=== PATIENT | female | born 1955 | race Caucasian/White ===

== ENCOUNTER → 2017-01-05 | Outpatient (CLI) | payer BC ==
--- NOTE | 2017-01-05 08:51 | US ---
EXAMINATION TYPE: US kidneys/renal and bladder DATE OF EXAM: 01/05/2017 8:03 AM COMPARISON: NONE CLINICAL HISTORY: R94.4 ABN Renal Function Test. EXAM MEASUREMENTS: Right Kidney: 11.1 x 4.1 x 5.5 cm Left Kidney: 7.0 x 2.5 x 3.6 cm TECHNOLOGIST IMPRESSION: Right Kidney: mildly dilated collecting system Left Kidney: atrophic, thin renal cortex, dense echogenic area mid = 0.5cm Bladder: appears wnl Bilateral Jets seen: no IMPRESSION: 1. Left renal atrophy. 2. 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
== END | disposition home or self-care (01) ==
LOC: RADUSWWP 07:35
PROVIDERS: ATTEND Family Medicine
DX: N26.1 Atrophy of kidney (terminal) (principal); N28.89 Other specified disorders of kidney and ureter
CPT/HCPCS: 76770

== ENCOUNTER → 2018-12-28 | Outpatient (CLI) | payer BC ==
--- NOTE | 2018-12-28 13:34 | ECHOS ---
STRESS ECHOCARDIOGRAM DATE OF SERVICE: 12/28/2018 INDICATIONS: Chest pain. MEDICATIONS: BASELINE HEART RATE: 65 BASELINE BLOOD PRESSURE: 143/93 MAXIMUM HEART RATE: 143 MAXIMUM BLOOD PRESSURE: 118/62 85% MPHR: 135 100% MPHR: 159 METS: 10.3 MAXIMUM STAGE REACHED: II TOTAL EXERCISE TIME: 9 minutes CLINICAL INFORMATION: The patient was exercised for a total period of 9 minutes. Peak heart rate of 143 was achieved. Maximum blood pressure of 118/62 mmHg was noted. Resting EKG shows normal sinus rhythm with normal LA interval and QRS duration and normal ST-T waves. No ST- segment depression suggestive of ischemia is noted. The baseline echocardiographic images reveal normal left ventricular chamber size with normal left ventricular systolic function. In the immediate postexercise period, normal increase in the wall thickness and contractility is noted. FINAL IMPRESSION: This stress echocardiographic study is negative for stress-induced ischemia. EKG portion of the stress test is not suggestive of ischemia. Patient's exercise tolerance is normal. MMODL / IJN: [id number] /
== END ==
LOC: RADNMMAIN 08:58
PROVIDERS: ATTEND Family Medicine
DX: R07.89 Other chest pain (principal)
CPT/HCPCS: 93351

== ENCOUNTER 2019-01-09 13:46 | Inpatient (IN) | payer BC ==
[2019-01-09] MEDS ORDERED: ACETAMINOPHEN TAB 500 MG TAB PO STA (15:16)
[2019-01-09] MEDS ORDERED: SODIUM CHLORIDE 0.9% 1,000 ML IV STA (15:16)
--- NOTE | 2019-01-09 15:19 | ED ---
Fever HPI - General Source: patient, RN notes reviewed Mode of arrival: ambulatory Limitations: no limitations <Jeff Leyva - Last Filed: 01/09/19 15:17> <Abiel Brooks - Last Filed: 01/09/19 19:28> - General Chief Complaint: Fever Stated Complaint: infection Time Seen by Provider: 01/09/19 14:57 - History of Present Illness Initial Comments: 63-year-old female presents emergency Department with chief complaint of fever. Patient states she has not fell last few days. Patient states that she went to doctors for surgical clearance states that she had meals while been was diagnosed with a staph infection placed on Bactrim. She states that ever since that she's not felt well. She has no URI symptoms denies any abdominal pain, chest pain, cough, dysuria, hematuria, back pain, neck pain or neck stiffness. She has not taken any recent Tylenol. Patient denies any sick contacts. (Jeff Leyva) - Related Data Home Medications Medication Instructions Recorded Confirmed Levothyroxine Sodium [Synthroid] 50 mcg PO DAILY 07/31/16 01/09/19 Sulfamethoxazole/Trimethoprim 1 tab PO BID 01/09/19 01/09/19 [Bactrim DS 800-160 mg] Allergies Allergy/AdvReac Type Severity Reaction Status Date / Time No Known Allergies Allergy Verified 01/09/19 15:12 Review of Systems ROS Other: All systems not noted in ROS Statement are negative. <Jeff Leyva - Last Filed: 01/09/19 15:17> ROS Other: All systems not noted in ROS Statement are negative. <Abiel Brooks - Last Filed: 01/09/19 19:28> ROS Statement: Those systems with pertinent positive or pertinent negative responses have been documented in the HPI. Past Medical History Past Medical History: Osteoarthritis (OA), Sleep Apnea/CPAP/BIPAP, Thyroid Disorder History of Any Multi-Drug Resistant Organisms: None Reported Past Surgical History: Section Past Anesthesia/Blood Transfusion Reactions: No Reported Reaction Past Psychological History: No Psychological Hx Reported Smoking Status: Former smoker - Past Family History Sister(s) Family Medical History: Cancer Father Family Medical History: Pulmonary Embolus Brother(s) Family Medical History: Pulmonary Embolus Mother Family Medical History: Deep Vein Thrombosis (DVT) <Dedoe,Jeff M - Last Filed: 01/09/19 15:17> General Exam Limitations: no limitations General appearance: alert, in no apparent distress Head exam: Present: atraumatic, normocephalic, normal inspection Eye exam: Present: normal appearance, PERRL, EOMI. Absent: scleral icterus, conjunctival injection, periorbital swelling ENT exam: Present: normal exam, normal oropharynx, mucous membranes moist, TM's normal bilaterally Neck exam: Present: normal inspection, full ROM. Absent: tenderness, meningismus, lymphadenopathy Respiratory exam: Present: normal lung sounds bilaterally. Absent: respiratory distress, wheezes, rales, rhonchi, stridor Cardiovascular Exam: Present: regular rate, normal rhythm, normal heart sounds. Absent: systolic murmur, diastolic murmur, rubs, gallop, clicks GI/Abdominal exam: Present: soft, normal bowel sounds. Absent: distended, tenderness, guarding, rebound, rigid Extremities exam: Present: normal inspection, full ROM, normal capillary refill. Absent: tenderness, pedal edema, joint swelling, calf tenderness Back exam: Present: normal inspection, full ROM. Absent: CVA tenderness (R), CVA tenderness (L) Neurological exam: Present: alert, oriented X3, CN II-XII intact Psychiatric exam: Present: normal affect, normal mood Skin exam: Present: warm, dry, intact, normal color. Absent: rash <Jeff Leyva - Last Filed: 01/09/19 15:17> Course <Jeff Leyva - Last Filed: 01/09/19 15:17> <Abiel Brooks - Last Filed: 01/09/19 19:28> Vital Signs 01/09/19 01/09/19 01/09/19 13:48 16:00 16:30 Temperature 102.4 F H Pulse Rate 96 91 Respiratory 16 20 Rate Blood Pressure 91/55 97/63 94/79 O2 Sat by Pulse 97 96 Oximetry 01/09/19 01/09/19 01/09/19 17:00 17:08 17:09 Temperature Pulse Rate Respiratory Rate Blood Pressure 79/49 70/51 79/43 O2 Sat by Pulse Oximetry 01/09/19 01/09/19 01/09/19 17:19 17:24 17:30 Temperature 100.8 F H Pulse Rate 85 Respiratory 14 Rate Blood Pressure 80/54 80/44 O2 Sat by Pulse 97 Oximetry 01/09/19 01/09/19 01/09/19 17:45 18:00 18:15 Temperature Pulse Rate 82 82 83 Respiratory 14 14 14 Rate Blood Pressure 91/43 79/47 72/43 O2 Sat by Pulse 99 99 98 Oximetry 01/09/19 01/09/19 01/09/19 18:30 18:45 19:00 Temperature Pulse Rate 81 81 Respiratory 16 14 Rate Blood Pressure 75/43 77/42 81/46 O2 Sat by Pulse 96 99 100 Oximetry 01/09/19 19:15 Temperature Pulse Rate 73 Respiratory 16 Rate Blood Pressure 85/56 O2 Sat by Pulse 100 Oximetry - Reevaluation(s) Reevaluation #1: 01/09/19 17:46 Patient reevaluated by myself, Dr. Brooks. Patient resting comfortably in bed. Patient states she has been fatigued the past few days and does feel a little bit dry in the mouth. Patient states no fevers at home. Patient otherwise does not feel that bad. No abdominal pain. No chest pain or dyspnea or cough. No dysuria. No rash. No meningismus on exam. Patient reevaluated and reexamined. Ultrasound ordered to evaluate for mild elevation of liver enzymes. At this time there is concern for severe sepsis although source is not identified. 1746. Blood culture and lactic acid have been ordered. Fluid bolus has been ordered. IV antibiotics has been ordered. Blood pressure did go down to 76 systolic. Current blood pressure is 91 systolic. (Abiel Brooks) Procedures - Central Line Placement Right SC Consent Obtained: verbal consent Patient Placed on Monitor/Pulse Ox: Yes MD Prep: mask, gown Central Line Prep: Chlorhexidine scrub Local Anesthesia Used: Lidocaine 1% Complications: none, other (Unable to fully advance the catheter. Procedure was discontinued and catheter was removed.) Right Femoral Consent Obtained: verbal consent Patient Placed on Monitor/Pulse Ox: Yes MD Prep: mask, gown, gloves Central Line Prep: Chlorhexidine scrub Local Anesthesia Used: Lidocaine 1% Ultrasound Used for Placement: No Central Line Lumen Inserted: triple Central Line Position: good blood return, all ports aspirated, flushed, capped, sutured in place with 3-0 nylon Dressing Applied: Tegaderm Patient Tolerated Procedure: well Complications: none - Sepsis Sepsis Focused Exam #1 Time Sepsis Criteria Met: 17:46 Sepsis Focused Exam Date: 01/09/19 Sepsis Focused Exam Time: 17:48 Sepsis Focused Exam Complete: Yes Vital Signs & RN Notes Reviewed: Yes Capillary Refill: < 2 Seconds: Fingers, Toes Peripheral Pulses: Normal: Radial (R), Radial (L) Skin Color: Normal for Patient Respiratory Exam: normal lung sounds Cardiovascular Exam: regular rate, normal rhythm Sepsis Focused Exam #2 Sepsis Focused Exam Date: 01/09/19 Sepsis Focused Exam Time: 19:20 Sepsis Focused Exam Complete: Yes Vital Signs & RN Notes Reviewed: Yes Capillary Refill: < 2 Seconds: Fingers, Toes Peripheral Pulses: Normal: Radial (R), Radial (L) Skin Color: Normal for Patient Respiratory Exam: normal lung sounds Cardiovascular Exam: regular rate, normal rhythm <Abiel Brooks - Last Filed: 01/09/19 19:28> Medical Decision Making <Jeff Leyva - Last Filed: 01/09/19 15:17> - Lab Data Result diagrams: 01/09/19 15:50 01/09/19 15:50 - Radiology Data Radiology results: report reviewed (Ultrasound shows no acute abnormality.), image reviewed (Chest x-ray shows no acute process.) <Abiel Brooks - Last Filed: 01/09/19 19:28> - Medical Decision Making Patient reevaluated. Patient and family are updated on results and plan. Source of fevers unknown at this time. Case was discussed in detail with Dr. Campos, who will consult for critical care. He does agree with infectious disease consult. He recommends changing antibiotics to Levaquin and vancomycin. Case was also discussed with Dr. crisostomo, who will admit, covering for Dr. Cottrell, who admits for Dr. Holly. (Abiel Brooks) - Lab Data Lab Results 01/09/19 01/09/19 01/09/19 Range/Units 15:50 15:50 15:50 WBC 5.3 (3.8-10.6) k/uL RBC 4.99 (3.80-5.40) m/uL Hgb 12.8 (11.4-16.0) gm/dL Hct 39.8 (34.0-46.0) % MCV 79.8 L (80.0-100.0) fL MCH 25.7 (25.0-35.0) pg MCHC 32.2 (31.0-37.0) g/dL RDW 14.5 (11.5-15.5) % Plt Count 294 (150-450) k/uL Neutrophils % 90 % Lymphocytes % 5 % Monocytes % 2 % Eosinophils % 1 % Basophils % 1 % Neutrophils # 4.8 (1.3-7.7) k/uL Lymphocytes # 0.3 L (1.0-4.8) k/uL Monocytes # 0.1 (0-1.0) k/uL Eosinophils # 0.1 (0-0.7) k/uL Basophils # 0.0 (0-0.2) k/uL Sodium 135 L (137-145) mmol/L Potassium 4.6 (3.5-5.1) mmol/L Chloride 102 (98-107) mmol/L Carbon Dioxide 19 L (22-30) mmol/L Anion Gap 14 mmol/L BUN 15 (7-17) mg/dL Creatinine 1.43 H (0.52-1.04) mg/dL Est GFR (CKD-EPI)AfAm 46 (>60 ml/min/1.73 sqM) Est GFR (CKD-EPI)NonAf 40 (>60 ml/min/1.73 sqM) Glucose 120 H (74-99) mg/dL Plasma Lactic Acid Edgar 1.4 (0.7-2.0) mmol/L Calcium 8.8 (8.4-10.2) mg/dL Magnesium (1.6-2.3) mg/dL Total Bilirubin 0.5 (0.2-1.3) mg/dL AST 57 H (14-36) U/L ALT 71 H (9-52) U/L Alkaline Phosphatase 202 H (38-126) U/L Total Creatine Kinase (30-135) U/L CK-MB (CK-2) (0.0-2.4) ng/mL CK-MB (CK-2) Rel Index Troponin I (0.000-0.034) ng/mL Total Protein 7.2 (6.3-8.2) g/dL Albumin 3.9 (3.5-5.0) g/dL Urine Color Urine Appearance (Clear) Urine pH (5.0-8.0) Ur Specific [place] (1.001-1.035) Urine Protein (Negative) Urine Glucose (UA) (Negative) Urine Ketones (Negative) Urine Blood (Negative) Urine Nitrite (Negative) Urine Bilirubin (Negative) Urine Urobilinogen (<2.0) mg/dL Ur Leukocyte Esterase (Negative) Urine RBC (0-5) /hpf Urine WBC (0-5) /hpf Ur Squamous Epith Cells (0-4) /hpf Urine Bacteria (None) /hpf Hyaline Casts (0-2) /lpf Urine Mucus (None) /hpf Hepatitis A IgM Ab Influenza Type A RNA (Not Detectd) Influenza Type B (PCR) (Not Detectd) 01/09/19 01/09/19 01/09/19 Range/Units 15:50 15:50 15:50 WBC (3.8-10.6) k/uL RBC (3.80-5.40) m/uL Hgb (11.4-16.0) gm/dL Hct (34.0-46.0) % MCV (80.0-100.0) fL MCH (25.0-35.0) pg MCHC (31.0-37.0) g/dL RDW (11.5-15.5) % Plt Count (150-450) k/uL Neutrophils % % Lymphocytes % % Monocytes % % Eosinophils % % Basophils % % Neutrophils # (1.3-7.7) k/uL Lymphocytes # (1.0-4.8) k/uL Monocytes # (0-1.0) k/uL Eosinophils # (0-0.7) k/uL Basophils # (0-0.2) k/uL Sodium (137-145) mmol/L Potassium (3.5-5.1) mmol/L Chloride (98-107) mmol/L Carbon Dioxide (22-30) mmol/L Anion Gap mmol/L BUN (7-17) mg/dL Creatinine (0.52-1.04) mg/dL Est GFR (CKD-EPI)AfAm (>60 ml/min/1.73 sqM) Est GFR (CKD-EPI)NonAf (>60 ml/min/1.73 sqM) Glucose (74-99) mg/dL Plasma Lactic Acid Edgar (0.7-2.0) mmol/L Calcium (8.4-10.2) mg/dL Magnesium 2.1 (1.6-2.3) mg/dL Total Bilirubin (0.2-1.3) mg/dL AST (14-36) U/L ALT (9-52) U/L Alkaline Phosphatase (38-126) U/L Total Creatine Kinase 94 (30-135) U/L CK-MB (CK-2) <0.2 (0.0-2.4) ng/mL CK-MB (CK-2) Rel Index Troponin I <0.012 (0.000-0.034) ng/mL Total Protein (6.3-8.2) g/dL Albumin (3.5-5.0) g/dL Urine Color Urine Appearance (Clear) Urine pH (5.0-8.0) Ur Specific [place] (1.001-1.035) Urine Protein (Negative) Urine Glucose (UA) (Negative) Urine Ketones (Negative) Urine Blood (Negative) Urine Nitrite (Negative) Urine Bilirubin (Negative) Urine Urobilinogen (<2.0) mg/dL Ur Leukocyte Esterase (Negative) Urine RBC (0-5) /hpf Urine WBC (0-5) /hpf Ur Squamous Epith Cells (0-4) /hpf Urine Bacteria (None) /hpf Hyaline Casts (0-2) /lpf Urine Mucus (None) /hpf Hepatitis A IgM Ab Influenza Type A RNA Not Detected (Not Detectd) Influenza Type B (PCR) Not Detected (Not Detectd) 01/09/19 01/09/19 Range/Units 16:20 18:33 WBC (3.8-10.6) k/uL RBC (3.80-5.40) m/uL Hgb (11.4-16.0) gm/dL Hct (34.0-46.0) % MCV (80.0-100.0) fL MCH (25.0-35.0) pg MCHC (31.0-37.0) g/dL RDW (11.5-15.5) % Plt Count (150-450) k/uL Neutrophils % % Lymphocytes % % Monocytes % % Eosinophils % % Basophils % % Neutrophils # (1.3-7.7) k/uL Lymphocytes # (1.0-4.8) k/uL Monocytes # (0-1.0) k/uL Eosinophils # (0-0.7) k/uL Basophils # (0-0.2) k/uL Sodium (137-145) mmol/L Potassium (3.5-5.1) mmol/L Chloride (98-107) mmol/L Carbon Dioxide (22-30) mmol/L Anion Gap mmol/L BUN (7-17) mg/dL Creatinine (0.52-1.04) mg/dL Est GFR (CKD-EPI)AfAm (>60 ml/min/1.73 sqM) Est GFR (CKD-EPI)NonAf (>60 ml/min/1.73 sqM) Glucose (74-99) mg/dL Plasma Lactic Acid Edgar (0.7-2.0) mmol/L Calcium (8.4-10.2) mg/dL Magnesium (1.6-2.3) mg/dL Total Bilirubin (0.2-1.3) mg/dL AST (14-36) U/L ALT (9-52) U/L Alkaline Phosphatase (38-126) U/L Total Creatine Kinase (30-135) U/L CK-MB (CK-2) (0.0-2.4) ng/mL CK-MB (CK-2) Rel Index Troponin I (0.000-0.034) ng/mL Total Protein (6.3-8.2) g/dL Albumin (3.5-5.0) g/dL Urine Color Yellow Urine Appearance Cloudy H (Clear) Urine pH 6.5 (5.0-8.0) Ur Specific [place] 1.015 (1.001-1.035) Urine Protein 1+ H (Negative) Urine Glucose (UA) Negative (Negative) Urine Ketones Negative (Negative) Urine Blood Negative (Negative) Urine Nitrite Negative (Negative) Urine Bilirubin Negative (Negative) Urine Urobilinogen <2.0 (<2.0) mg/dL Ur Leukocyte Esterase Small H (Negative) Urine RBC 3 (0-5) /hpf Urine WBC 6 H (0-5) /hpf Ur Squamous Epith Cells 7 H (0-4) /hpf Urine Bacteria Rare H (None) /hpf Hyaline Casts 5 H (0-2) /lpf Urine Mucus Rare H (None) /hpf Hepatitis A IgM Ab NEGATIVE Influenza Type A RNA (Not Detectd) Influenza Type B (PCR) (Not Detectd) Critical Care Time Critical Care Time: Yes Total Critical Care Time: 33 <Abiel Brooks - Last Filed: 01/09/19 19:28> Disposition <Jeff Leyva - Last Filed: 01/09/19 15:17> Is patient prescribed a controlled substance at d/c from ED?: No Decision Time: 19:28 <Abiel rBooks - Last Filed: 01/09/19 19:28> Clinical Impression: Septic shock Disposition: ADMITTED IP TO THIS HOSP Condition: Serious Referrals: Luis Alberto Holly MD [Primary Care Provider] - 1-2 days
--- NOTE | 2019-01-09 15:37 | XR ---
EXAMINATION TYPE: XR chest 2V DATE OF EXAM: 01/09/2019 COMPARISON: NONE HISTORY: Fever TECHNIQUE: Frontal and lateral views of the chest are obtained. FINDINGS: Heart and mediastinum are normal. Lungs are clear. Diaphragm is normal. Bony thorax appear s normal. Pulmonary vascularity is normal. IMPRESSION: Normal chest
[2019-01-09 16:10] LABS: Basophils % (A) 1 %; Eosinophils # (A) 0.1 k/uL (0-0.7); Eosinophils % (A) 1 %; HCT 39.8 % (34.0-46.0); HGB 12.8 gm/dL (11.4-16.0); Lymphocytes # (A) 0.3 k/uL (1.0-4.8); Lymphocytes % (A) 5 %; MCH 25.7 pg (25.0-35.0); MCHC 32.2 g/dL (31.0-37.0); MCV 79.8 fL (80.0-100.0); Mean Platelet Volume 7.1; Monocytes # (A) 0.1 k/uL (0-1.0); Monocytes % (A) 2 %; Neutrophils # (A) 4.8 k/uL (1.3-7.7); Neutrophils % (A) 90 %; Platelet Count 294 k/uL (150-450); RBC 4.99 m/uL (3.80-5.40); RDW 14.5 % (11.5-15.5); WBC 5.3 k/uL (3.8-10.6)
[2019-01-09 16:20] LABS: Albumin 3.9 g/dL (3.5-5.0); Calcium 8.8 mg/dL (8.4-10.2); Potassium 4.6 mmol/L (3.5-5.1); Total Bilirubin 0.5 mg/dL (0.2-1.3); Total Protein 7.2 g/dL (6.3-8.2)
[2019-01-09 16:42] LABS: Appearance,Urine Cloudy (Clear); Bacteria,Urine Rare /hpf; Bilirubin,Urine Negative (Negative); Blood,Urine Negative (Negative); Color,Urine Yellow; Glucose,Urine (UA) Negative (Negative); Hyaline Casts,Urine 5 /lpf (0-2); Ketones,Urine Negative (Negative); Leukocyte Esterase,Urine Small (Negative); Mucus,Urine Rare /hpf; Nitrite,Urine Negative (Negative); PH, Urine 6.5 (5.0-8.0); Protein,Urine 1+ (Negative); RBC,Urine 3 /hpf (0-5); Specific Gravity,Urine 1.015 (1.001-1.035); Squamous Epithelial Cell,Urine 7 /hpf (0-4); Urobilinogen,Urine <2.0 mg/dL (<2.0)
[2019-01-09] MEDS ORDERED: SODIUM CHLORIDE 0.9% 1,000 ML IV ONE (17:07)
[2019-01-09] MEDS ORDERED: SODIUM CHLORIDE 0.9% 500 ML 500 ML IV ONE (17:12)
[2019-01-09 17:40] LABS: Creatine Kinase 94 U/L (30-135)
[2019-01-09 17:54] LABS: Creatine Kinase MB <0.2 ng/mL (0.0-2.4); Troponin I <0.012 ng/mL (0.000-0.034)
--- NOTE | 2019-01-09 18:41 | US ---
EXAMINATION TYPE: US gallbladder DATE OF EXAM: 01/09/2019 COMPARISON: NONE CLINICAL HISTORY: abnl enzymes and fever. Elevated liver enzymes EXAM MEASUREMENTS: Liver Length: 19.0 cm Gallbladder Wall: 0.2 cm CBD: 0.6 cm Right Kidney: 12.5 x 4.6 x 5.8 cm Pancreas: visualized portions wnl, tail limited by overlying midline bowel gas Liver: enlarged, 1.4 x 1.0 x 1.5cm hyperechoic lesion seen anterior left lobe Gallbladder: wnl Evidence for sonographic Weir's sign: no CBD: borderline dilated Right Kidney: dilated renal pelvis IMPRESSION: Hyperechoic 1.5 cm focus in the anterior left lobe of the liver is probably hemangioma. N o dilated ducts. No gallstones.
[2019-01-09] MEDS ORDERED: NOREPINEPHRINE 8 MG in SODIUM CHLORIDE 0.9% 250 ML IV ONE (18:46)
[2019-01-09 19:17] LABS: Hepatitis A AB IgM Index 0.02; Hepatitis A Antibody IgM NEGATIVE
[2019-01-09] MEDS ORDERED: NALOXONE 0.4 MG/ML 1 ML VIAL IV PRN (19:29)
[2019-01-09] MEDS ORDERED: VANCOMYCIN IV PER PHARMACY 1 EACH MISC MISCELLANE PRN (19:31)
--- NOTE | 2019-01-09 19:41 | XR ---
EXAMINATION TYPE: XR chest 1V portable DATE OF EXAM: 01/09/2019 COMPARISON: Today HISTORY: Check line placement TECHNIQUE: Single frontal view of the chest is obtained. FINDINGS: Heart and mediastinum are normal. Lungs are clear. Costophrenic angles are clear. I do not see a central venous catheter. There is no pleural effusion or pneumothorax. There are chest leads. IMPRESSION: Normal chest. No catheter identified. No change compared to exam earlier today.
[2019-01-09] MEDS ORDERED: DEXAMETHASONE SOD PHOSPHATE 10 MG/ML 1 ML VIAL IV STA (20:33)
[2019-01-09 21:04] LABS: Glucose,Whole Blood 113 mg/dL (75-99)
[2019-01-09] MEDS ORDERED: VANCOMYCIN 1,250 MG in SODIUM CHLORIDE 0.9% 250 ML IVPB SCH (22:00)
[2019-01-09] MEDS: SODIUM CHLORIDE 0.9% 1,000 ML IV SCH (22:02)
[2019-01-09 22:20] VITALS: BMI 26.2
--- NOTE | 2019-01-09 23:28 | P.HPIM ---
History of Present Illness H&P Date: 01/09/19 Patient is a 63-year-old female with a PMH of hypothyroidism, and osteoarthritis who presented to the ED for fever. Patient notes that over the past few days, she had not been feeling well and had been more lethargic than usual. As per the patient, she was recently started on Bactrim after some preoperative testing came back positive for a staph infection. She notes that her symptoms started since she began taking Bactrim. This morning, the patient woke up feeling lightheaded and lethargic and checked her temperature, which was 104. The patient subsequently came to the ED. The patient otherwise denied chest pain, shortness of breath, or cough. She also denied abdominal pain, nausea, vomiting, or diarrhea. She denied calf pain, no family swelling, dysuria, or recent travel, or sick contacts. She notes she has never had such symptoms before. In the emergency room, her BP was 85/56, T-max 102.4, pulse 73, SpO2 100% on room air, and breathing at 16 breaths per minute. She underwent a comprehensive workup, with WBC count 5.3, lactic acid 1.4, chest x-ray unremarkable, creatinine 1.43, AST 57, ALT 71, alk phos 202, troponins < 0.012, and gallbladder ultrasound showing 1.5 cm hyperechoic focus likely hemangioma in the liver. Review of Systems Pertinent positives and negatives as discussed in HPI, a complete review of systems was performed and all other systems are negative. Past Medical History Past Medical History: Osteoarthritis (OA), Sleep Apnea/CPAP/BIPAP, Thyroid Disorder History of Any Multi-Drug Resistant Organisms: None Reported Past Surgical History: Section Past Anesthesia/Blood Transfusion Reactions: No Reported Reaction Smoking Status: Former smoker - Past Family History Sister(s) Family Medical History: Cancer Father Family Medical History: Pulmonary Embolus Brother(s) Family Medical History: Pulmonary Embolus Mother Family Medical History: Deep Vein Thrombosis (DVT) Medications and Allergies Home Medications Medication Instructions Recorded Confirmed Type Levothyroxine Sodium [Synthroid] 50 mcg PO DAILY 07/31/16 01/09/19 History Sulfamethoxazole/Trimethoprim 1 tab PO BID 01/09/19 01/09/19 History [Bactrim DS 800-160 mg] Allergies Allergy/AdvReac Type Severity Reaction Status Date / Time No Known Allergies Allergy Verified 01/09/19 15:12 Physical Exam Vitals: Vital Signs Temp Pulse Resp BP Pulse Ox 01/09/19 21:30 80 28 H 121/68 96 01/09/19 21:04 98.9 F 92 25 H 106/55 95 01/09/19 20:30 76 17 101/56 100 01/09/19 20:19 98.9 F 01/09/19 20:15 75 14 108/62 100 01/09/19 20:00 71 21 108/57 100 01/09/19 19:45 72 18 110/59 98 01/09/19 19:30 74 16 82/60 99 01/09/19 19:15 73 16 85/56 100 01/09/19 19:00 81/46 100 01/09/19 18:45 81 14 77/42 99 01/09/19 18:30 81 16 75/43 96 01/09/19 18:15 83 14 72/43 98 01/09/19 18:00 82 14 79/47 99 01/09/19 17:45 82 14 91/43 99 01/09/19 17:30 85 14 80/44 97 01/09/19 17:24 100.8 F H 01/09/19 17:19 80/54 01/09/19 17:09 79/43 01/09/19 17:08 70/51 01/09/19 17:00 79/49 01/09/19 16:30 94/79 01/09/19 16:00 91 20 97/63 96 01/09/19 13:48 102.4 F H 96 16 91/55 97 Intake and Output 01/09/19 01/09/19 01/09/19 06:59 14:59 22:59 Other: Weight 67.132 kg General: non toxic, no distress, appears at stated age, normal weight Derm: no unusual rashes/lesions no unusual ecchymoses, warm, dry Head: atraumatic, normocephalic, symmetric Eyes: EOMI, no lid lag, anicteric sclera, pupils equal round reactive to light ENT: Nose and ears atraumatic, no thrush, no pharyngeal erythema Neck: No thyromegaly, no cervical lymphadenopathy, trachea midline, supple Mouth: no lip lesion, mucus membranes moist Cardiovascular: S1S2 reg, no murmur, positive posterior tibial pulse bilateral, no edema, capillary refill less than 2 seconds Lungs: CTA bilateral, no rhonchi, no rales , no accessory muscle use Abdominal: soft, nontender to palpation, no guarding, no appreciable organomegaly, normal bowel sounds Ext: no gross muscle atrophy, muscle strength 5 out of 5 in all 4 extremities grossly, no contractures, Neuro: CN II-XI grossly intact, light touch intact all 4 extremities, finger to nose within normal limits, Psych: Alert, oriented, appropriate affect Results CBC & Chem 7: 01/09/19 15:50 01/09/19 15:50 Labs: Abnormal Lab Results - Last 24 Hours (Table) 01/09/19 01/09/19 01/09/19 Range/Units 15:50 15:50 16:20 MCV 79.8 L (80.0-100.0) fL Lymphocytes # 0.3 L (1.0-4.8) k/uL Sodium 135 L (137-145) mmol/L Carbon Dioxide 19 L (22-30) mmol/L Creatinine 1.43 H (0.52-1.04) mg/dL Glucose 120 H (74-99) mg/dL POC Glucose (mg/dL) (75-99) mg/dL AST 57 H (14-36) U/L ALT 71 H (9-52) U/L Alkaline Phosphatase 202 H (38-126) U/L Urine Appearance Cloudy H (Clear) Urine Protein 1+ H (Negative) Ur Leukocyte Esterase Small H (Negative) Urine WBC 6 H (0-5) /hpf Ur Squamous Epith Cells 7 H (0-4) /hpf Urine Bacteria Rare H (None) /hpf Hyaline Casts 5 H (0-2) /lpf Urine Mucus Rare H (None) /hpf 01/09/19 Range/Units 21:03 MCV (80.0-100.0) fL Lymphocytes # (1.0-4.8) k/uL Sodium (137-145) mmol/L Carbon Dioxide (22-30) mmol/L Creatinine (0.52-1.04) mg/dL Glucose (74-99) mg/dL POC Glucose (mg/dL) 113 H (75-99) mg/dL AST (14-36) U/L ALT (9-52) U/L Alkaline Phosphatase (38-126) U/L Urine Appearance (Clear) Urine Protein (Negative) Ur Leukocyte Esterase (Negative) Urine WBC (0-5) /hpf Ur Squamous Epith Cells (0-4) /hpf Urine Bacteria (None) /hpf Hyaline Casts (0-2) /lpf Urine Mucus (None) /hpf Assessment and Plan Plan: Septic shock, unknown source -Started on Levophed in the ED -Continue with Levaquin and Vancomycin -Admitted to medical ICU -Critical care consult -Follow-up blood and urine cultures -IV fluids -Follow up hepatitis panels -Infectious disease consult Elevated creatinine -Possibly secondary to Bactrim, will hold for now -Monitor BMP Deranged LFTs -Follow up hepatitis panel Hypothyroidism -Resume home med Synthroid DVT//GI prophylaxis -Heparin -No indication for GI prophylaxis The patient is admitted with an anticipated greater than 2 midnight stay for evaluation of septic shock. CODE STATUS: Full code Discussed with: Patient, Anticipated discharge date: 01/12/[address]: Home A total of 60 minutes was spent on the care of this complex patient more than 50 % of the time was spent in counseling and care coordination.
[2019-01-09] MEDS: HEPARIN SODIUM,PORCINE 5,000 UNIT/ML 1 ML VIAL SQ SCH (23:55)
[2019-01-09] MEDS: LEVOFLOXACIN 750MG-D5W PMX 750 MG in DEXTROSE/WATER 1 150ML.BAG IVPB SCH (23:55)
[2019-01-10] MEDS: ACETAMINOPHEN TAB 325 MG TAB PO PRN (00:10)
[2019-01-10] MEDS: SODIUM CHLORIDE 0.9% 1,000 ML IV SCH ×2 (03:30→17:41)
[2019-01-10 05:04] LABS: Basophils % (A) 0 %; Eosinophils % (A) 1 %; HCT 38.9 % (34.0-46.0); HGB 12.1 gm/dL (11.4-16.0); Hypochromasia Slight; Lymphocytes # (A) 0.3 k/uL (1.0-4.8); Lymphocytes % (A) 7 %; MCH 25.9 pg (25.0-35.0); MCHC 31.2 g/dL (31.0-37.0); MCV 83.2 fL (80.0-100.0); Mean Platelet Volume 6.8; Monocytes % (A) 1 %; Neutrophils # (A) 3.8 k/uL (1.3-7.7); Neutrophils % (A) 89 %; Platelet Count 222 k/uL (150-450); RBC 4.67 m/uL (3.80-5.40); RDW 14.4 % (11.5-15.5); WBC 4.2 k/uL (3.8-10.6)
[2019-01-10 05:13] LABS: Albumin 2.9 g/dL (3.5-5.0); Phosphorus 2.5 mg/dL (2.5-4.5); Potassium 4.2 mmol/L (3.5-5.1); Total Bilirubin 0.3 mg/dL (0.2-1.3); Total Protein 5.8 g/dL (6.3-8.2)
[2019-01-10] MEDS: LEVOTHYROXINE 50 MCG TAB PO SCH (07:04)
[2019-01-10] MEDS: HEPARIN SODIUM,PORCINE 5,000 UNIT/ML 1 ML VIAL SQ SCH ×2 (08:12→17:38)
--- NOTE | 2019-01-10 08:17 | XR ---
EXAMINATION TYPE: XR chest 1V DATE OF EXAM: 01/10/2019 COMPARISON: 01/09/2019 HISTORY: Sepsis TECHNIQUE: Single frontal view of the chest is obtained. FINDINGS: Subsegmental changes medial aspect of the right. No overt failure. Heart size stable.. No pleural effusion IMPRESSION: Right basilar subsegmental consolidation. Atelectasis favored over pneumonia correlate c linically.
[2019-01-10] MEDS ORDERED: PANTOPRAZOLE 40 MG/10 ML VIAL IV SCH (09:00)
--- NOTE | 2019-01-10 09:43 | P.CNPUL ---
History of Present Illness Consult date: 01/10/19 Requesting physician: Duglas Hernandez Reason for consult: other Chief complaint: Fever, shaking chills History of present illness: This is 63-year-old white female patient of Dr. Luis Alberto Holly, with past medical history of hypothyroidism, obstructive sleep apnea on CPAP, former smoker, who presented to the emergency department on 01/09/2019 with complaints of a fever of 104F, weakness, shaking chills. Patient symptoms started midweek last week, with increasing weakness, not feeling well on and off. Of note patient went to see her PCP last week on Thursday who did a nasal swab in view of upcoming knee arthroscopy. Patient was then contacted on Thursday in view of her nasal swab being positive for staph and she was started on oral Bactrim. No On Thursday night patient started shaking, started experiencing numbness in her fingers, chills. But she denied any shortness of breath or chest pain, denied any nausea, vomiting or diarrhea, she denied any urinary symptoms, no upper respiratory symptoms, no back pain, neck pain or neck stiffness. She denied any sick contacts.. No lightheadedness or dizziness. Patient was experiencing some gait instability, she came in for evaluation on Thursday. Chest x-ray showed normal chest. Blood work showed white blood cell count of 5.3, hemoglobin of 12.8, serum sodium was 135, CO2 was 19, BUN was 15 and creatinine was 1.43, liver enzymes were elevated, with AST of 57, ALT was 71 , and alkaline phosphatase was 202, troponins were negative 1, serum cortisone level was normal at 23. Urinalysis showed small amount of leuks, white blood cell count of 6, rare bacteria, influenza screen was negative, hepatitis A was negative. Gallbladder ultrasound was performed in view of elevated liver enzymes and showed hyperechoic 1.5 cm focus in the anterior left lobe of the liver probably related to hemangioma, no dilated ducts, no gallstones were seen. Follow-up chest x-ray showed normal chest. EKG showed normal sinus rhythm with left axis deviation, but no ischemic changes. Today on the chest x- ray was taken, and showed right basilar atelectasis. She was febrile on presentation with a temp of 102.4F. Hypotensive with a blood pressure of 70/51 , she was fluid resuscitated with 3 L of 0.9 normal saline. She did require vasopressor support with a low dose of Levaquin at 5 mics per minute which was weaned off this morning. Blood and urine cultures were collected and sent, urine culture is pending, blood cultures pending. Antibiotic coverage is in the form of Rocephin and Levaquin and vancomycin. This morning patient is seen in intensive care unit, she is awake and alert, oriented 3, denies any distress , no difficulty breathing, no chest pain, no abdominal pain, no nausea or vomiting, she did have one episode of diarrhea this morning. No urinary complaints. Fever pattern is improving. Afebrile this morning. Review of Systems All systems: negative Constitutional: Reports malaise, Reports weakness, Denies chills, Denies fever Eyes: denies blurred vision, denies pain Ears, nose, mouth and throat: Denies headache, Denies sore throat Cardiovascular: Denies chest pain, Denies shortness of breath Respiratory: Denies cough Gastrointestinal: Denies abdominal pain, Denies diarrhea, Denies nausea, Denies vomiting Genitourinary: Denies dysuria, Denies hematuria Musculoskeletal: Denies myalgias Integumentary: Denies pruritus, Denies rash Neurological: Reports weakness, Denies numbness Psychiatric: Denies anxiety, Denies depression Endocrine: Denies fatigue, Denies weight change Past Medical History Past Medical History: Osteoarthritis (OA), Sleep Apnea/CPAP/BIPAP, Thyroid Disorder History of Any Multi-Drug Resistant Organisms: None Reported Past Surgical History: Section Past Anesthesia/Blood Transfusion Reactions: No Reported Reaction Smoking Status: Former smoker - Past Family History Sister(s) Family Medical History: Cancer Father Family Medical History: Pulmonary Embolus Brother(s) Family Medical History: Pulmonary Embolus Mother Family Medical History: Deep Vein Thrombosis (DVT) Medications and Allergies Home Medications Medication Instructions Recorded Confirmed Type Levothyroxine Sodium [Synthroid] 50 mcg PO DAILY 07/31/16 01/09/19 History Sulfamethoxazole/Trimethoprim 1 tab PO BID 01/09/19 01/09/19 History [Bactrim DS 800-160 mg] Allergies Allergy/AdvReac Type Severity Reaction Status Date / Time No Known Allergies Allergy Verified 01/09/19 15:12 Physical Exam Vitals: Vital Signs Temp Pulse Resp BP Pulse Ox 01/10/19 07:00 76 12 88/52 97 01/10/19 06:30 68 18 112/88 95 01/10/19 06:00 71 18 94/55 95 01/10/19 05:30 72 23 90/54 97 01/10/19 05:00 69 20 94/52 94 L 01/10/19 04:30 67 18 109/58 97 01/10/19 04:00 72 20 95/54 94 L 01/10/19 03:30 79 23 97/54 95 01/10/19 03:00 98.4 F 79 24 111/60 95 01/10/19 02:30 83 19 105/58 96 01/10/19 02:00 89 23 107/62 92 L 01/10/19 01:30 89 30 H 109/61 92 L 01/10/19 01:00 100.3 F H 96 33 H 104/55 91 L 01/10/19 00:30 101 H 33 H 100/55 93 L 01/10/19 00:00 103.1 F H 112 H 20 113/56 92 L 01/09/19 23:30 105 H 29 H 127/66 95 01/09/19 23:00 103 H 13 98/64 87 L 01/09/19 22:30 124 H 44 H 125/74 94 L 01/09/19 22:00 96 19 104/59 97 01/09/19 21:30 80 28 H 121/68 96 01/09/19 21:04 98.9 F 92 25 H 106/55 95 01/09/19 20:30 76 17 101/56 100 01/09/19 20:19 98.9 F 01/09/19 20:15 75 14 108/62 100 01/09/19 20:00 71 21 108/57 100 01/09/19 19:45 72 18 110/59 98 01/09/19 19:30 74 16 82/60 99 01/09/19 19:15 73 16 85/56 100 01/09/19 19:00 81/46 100 01/09/19 18:45 81 14 77/42 99 01/09/19 18:30 81 16 75/43 96 01/09/19 18:15 83 14 72/43 98 01/09/19 18:00 82 14 79/47 99 01/09/19 17:45 82 14 91/43 99 01/09/19 17:30 85 14 80/44 97 01/09/19 17:24 100.8 F H 01/09/19 17:19 80/54 01/09/19 17:09 79/43 01/09/19 17:08 70/51 01/09/19 17:00 79/49 01/09/19 16:30 94/79 01/09/19 16:00 91 20 97/63 96 01/09/19 13:48 102.4 F H 96 16 91/55 97 Intake and Output 01/09/19 01/10/19 01/10/19 22:59 06:59 14:59 Intake Total 250 1442.173 125 Output Total 0 1950 400 Balance 250 -507.827 -275 Intake: IV 250 1400 125 Levofloxacin 750Mg-D5w 150 Pmx 750 mg In Dextrose/ Water 1 150ml.bag @ 100 mls/hr IVPB Q24H [facility] Rx#: [id number] Sodium Chloride 0.9% 1, 250 1000 125 000 ml @ 125 mls/hr IV . Q8H [facility] Rx#:[id number] Vancomycin 1,250 mg In 250 Sodium Chloride 0.9% 250 ml @ 125 mls/hr IVPB Q16H [facility] Rx#:[id number] Intake, IV Titration 42.173 Amount Norepinephrine 8 mg In 42.173 Sodium Chloride 0.9% 250 ml @ 0.05 MCG/KG/MIN 6.49 mls/hr IV .Q24H [facility] Rx#: [id number] Output: Urine 0 1950 400 Other: Voiding Method Bedside Commode # Voids 1 # Bowel Movements 1 1 Weight 69.8 kg GENERAL EXAM: Alert, pleasant, 63-year-old white female, on room air comfortable in no apparent distress. HEAD: Normocephalic/atraumatic. EYES: Normal reaction of pupils, equal size. Conjunctiva pink, sclera white. NOSE: Clear with pink turbinates. THROAT: No erythema or exudates. NECK: No masses, no JVD, no thyroid enlargement, no adenopathy. CHEST: No chest wall deformity. Symmetrical expansion. LUNGS: Equal air entry with no crackles, wheeze, rhonchi or dullness. CVS: Regular rate and rhythm, normal S1 and S2, no gallops, no murmurs, no rubs ABDOMEN: Soft, nontender. No hepatosplenomegaly, normal bowel sounds, no guarding or rigidity. EXTREMITIES: No clubbing, no edema, no cyanosis, 2+ pulses and upper and lower extremities. MUSCULOSKELETAL: Muscle strength and tone normal. SPINE: No scoliosis or deformity SKIN: No rashes CENTRAL NERVOUS SYSTEM: Alert and oriented -3. No focal deficits, tone is normal in all 4 extremities. PSYCHIATRIC: Alert and oriented -3. Appropriate affect. Intact judgment and insight. Results - Laboratory Findings CBC and BMP: 01/10/19 04:28 01/10/19 04:28 Abnormal lab findings: Abnormal Labs 01/09/19 01/09/19 01/09/19 15:50 15:50 16:20 MCV 79.8 L Lymphocytes # 0.3 L Sodium 135 L Chloride Carbon Dioxide 19 L Creatinine 1.43 H Glucose 120 H POC Glucose (mg/dL) Calcium AST 57 H ALT 71 H Alkaline Phosphatase 202 H Total Protein Albumin Urine Appearance Cloudy H Urine Protein 1+ H Ur Leukocyte Esterase Small H Urine WBC 6 H Ur Squamous Epith Cells 7 H Urine Bacteria Rare H Hyaline Casts 5 H Urine Mucus Rare H 01/09/19 01/10/19 01/10/19 21:03 04:28 04:28 MCV Lymphocytes # 0.3 L Sodium Chloride 116 H Carbon Dioxide 17 L Creatinine Glucose 139 H POC Glucose (mg/dL) 113 H Calcium 8.0 L AST 81 H ALT 79 H Alkaline Phosphatase 218 H Total Protein 5.8 L Albumin 2.9 L Urine Appearance Urine Protein Ur Leukocyte Esterase Urine WBC Ur Squamous Epith Cells Urine Bacteria Hyaline Casts Urine Mucus - Diagnostic Findings Chest x-ray: report reviewed, image reviewed Additional studies: EKG, gallbladder ultrasound results reviewed Assessment and Plan Plan: Assessment: #1. Febrile illness rule out sepsis, but it is likely related to a viral infection, patient is covered with empiric antibiotics, blood culture and urine cultures are pending. Chest x-ray is negative, no leukocytosis, gallbladder ultrasound showed no stones, no urinary complaints, no pulmonary complaints, no GI complaints #2. Hypotension, likely related to dehydration, rule out septic shock, responded well to IV fluid resuscitation. Did require short-term vasopressor support #3. Elevated liver enzymes, could be related to hypotension, gallbladder ultrasound was negative for obstruction, gallstones. Hepatitis A IgM negative #4. Non-anion gap metabolic acidosis related to acute kidney injury #5. Acute kidney injury related to dehydration and recent use of Bactrim #6. Nasal culture positive for staph, treated with oral course of Bactrim, was asymptomatic, could be just a carrier #7. Hypothyroidism #8. Obstructive sleep apnea on CPAP #9. Former smoker Plan: Patient is doing well, vasopressor support has been weaned off, she has been adequately fluid resuscitated, renal function is improving, fever pattern is improving, blood and urine cultures are pending. Patient is awake and alert, altered mentation, no specific complaints, no shortness of breath or chest pain , no urinary complaints, did have one episode of diarrhea this morning. Doing well, no nausea or vomiting. No chest x-ray has been reviewed with Dr. Harrington, and showed no acute pulmonary process, right basilar atelectasis. We'll discontinue vancomycin and Rocephin, patient will continue on monotherapy with Levaquin, we will order pro-calcitonin level. Continue with IV hydration. GI and DVT prophylaxis. Vasopressor support has been discontinued. Likely transfer to medical surgical floor today if patient remains stable. I performed a history & physical examination of the patient and discussed their management with my nurse practitioner, Annette Escalante. I reviewed the nurse practitioner's note and agree with the documented findings and plan of care. Lung sounds are positive for clear breath sounds. The findings and the impression was discussed with the patient. I attest to the documentation by the nurse practitioner. Time with Patient: Greater than 30
[2019-01-10 10:58] LABS: Hepatitis B Core IgM Non-Reactive (Non-Reactive)
--- NOTE | 2019-01-10 16:05 | P.PN ---
Subjective Progress Note Date: 01/10/19 Principal diagnosis: weakness Patient is a 63-year-old female past medical history of hypothyroidism , arthritis, sleep apnea who presented to the ER with complaints of a fever and lethargy. She was recently getting worked up for a knee scope and was told she had staph in her nasal passages. She was therefore started on Bactrim. In the ER she underwent a Comprehensive evaluation. Her initial blood pressure was 91/ 55 and temperature was 102.4. Laboratory analysis revealed white blood cell count of 5.3, sodium 135, carbon dioxide 19, BUN 15, and creatinine 1.43. She was also found to have mildly elevated AST at 57 and ALT at 71. T bili was normal. She underwent a urinalysis which did not show any signs of UTI. Chest x-ray reviewed process. Gallbladder ultrasound showed possible liver hemangioma and the anterior left lobe but no signs of gallstones. Influenza nasal swab was negative. Despite IV fluid she remained hypotensive in the ER necessitating the use of levo. She was started on broad-spectrum antibiotics with Levaquin and Rocephin. She was therefore admitted to the ICU. Random cortisol level as well as hepatitis profiles were negative. She was able to be weaned off levo fed by the morning of 01/10. Patient seen and examined at bedside. She admits to making her own probiotic agents at home in the form of fermented milk, [place] yogurt, and [place]. She has chronic neck pain and stiffness from polymyalgia rheumatica that has not been changed. She has had an intermittent headache which extends from the back of her neck. She denies any neck stiffness. She denies any chest pain, shortness of breath, nausea, vomiting, or diarrhea. Objective - Vital Signs Vital signs: Vital Signs Temp 98.4 F 01/10/19 03:00 Pulse 76 01/10/19 07:00 Resp 12 01/10/19 07:00 BP 88/52 01/10/19 07:00 Pulse Ox 97 01/10/19 07:00 Intake & Output 01/09/19 01/10/19 01/10/19 18:59 06:59 18:59 Intake Total 1692.173 125 Output Total 1950 400 Balance -257.827 -275 Weight 67.132 kg 69.8 kg Intake: IV 1650 125 Levofloxacin 750Mg-D5w 150 Pmx 750 mg In Dextrose/ Water 1 150ml.bag @ 100 mls/hr IVPB Q24H [facility] Rx#: [id number] Sodium Chloride 0.9% 1, 1250 125 000 ml @ 125 mls/hr IV . Q8H [facility] Rx#:[id number] Vancomycin 1,250 mg In 250 Sodium Chloride 0.9% 250 ml @ 125 mls/hr IVPB Q16H [facility] Rx#:[id number] Intake, IV Titration 42.173 Amount Norepinephrine 8 mg In 42.173 Sodium Chloride 0.9% 250 ml @ 0.05 MCG/KG/MIN 6.49 mls/hr IV .Q24H [facility] Rx#: [id number] Output: Urine 1950 400 Other: Voiding Method Bedside Commode # Voids 1 # Bowel Movements 1 - Exam General: Ill-appearing, no distress, appears at stated age Derm: warm, dry Head: atraumatic, normocephalic, symmetric Eyes: EOMI, no lid lag, anicteric sclera Mouth: no lip lesion, mucus membranes moist Cardiovascular: S1S2 reg, no murmur, positive posterior tibial pulse bilateral, Lungs: CTA bilateral, no rhonchi, no rales , no accessory muscle use Abdominal: soft, nontender to palpation, no guarding, no appreciable organomegaly Ext: no gross muscle atrophy, no edema, no contractures Neuro: CN II-XI grossly intact, no focal neuro deficits, negative Kernig's and bruzinskis Psych: Alert, oriented, appropriate affect - Labs CBC & Chem 7: 01/10/19 04:28 01/10/19 04:28 Labs: Abnormal Lab Results - Last 24 Hours (Table) 01/09/19 01/09/19 01/09/19 Range/Units 15:50 15:50 16:20 MCV 79.8 L (80.0-100.0) fL Lymphocytes # 0.3 L (1.0-4.8) k/uL Sodium 135 L (137-145) mmol/L Chloride (98-107) mmol/L Carbon Dioxide 19 L (22-30) mmol/L Creatinine 1.43 H (0.52-1.04) mg/dL Glucose 120 H (74-99) mg/dL POC Glucose (mg/dL) (75-99) mg/dL Calcium (8.4-10.2) mg/dL AST 57 H (14-36) U/L ALT 71 H (9-52) U/L Alkaline Phosphatase 202 H (38-126) U/L Total Protein (6.3-8.2) g/dL Albumin (3.5-5.0) g/dL Urine Appearance Cloudy H (Clear) Urine Protein 1+ H (Negative) Ur Leukocyte Esterase Small H (Negative) Urine WBC 6 H (0-5) /hpf Ur Squamous Epith Cells 7 H (0-4) /hpf Urine Bacteria Rare H (None) /hpf Hyaline Casts 5 H (0-2) /lpf Urine Mucus Rare H (None) /hpf 01/09/19 01/10/19 01/10/19 Range/Units 21:03 04:28 04:28 MCV (80.0-100.0) fL Lymphocytes # 0.3 L (1.0-4.8) k/uL Sodium (137-145) mmol/L Chloride 116 H (98-107) mmol/L Carbon Dioxide 17 L (22-30) mmol/L Creatinine (0.52-1.04) mg/dL Glucose 139 H (74-99) mg/dL POC Glucose (mg/dL) 113 H (75-99) mg/dL Calcium 8.0 L (8.4-10.2) mg/dL AST 81 H (14-36) U/L ALT 79 H (9-52) U/L Alkaline Phosphatase 218 H (38-126) U/L Total Protein 5.8 L (6.3-8.2) g/dL Albumin 2.9 L (3.5-5.0) g/dL Urine Appearance (Clear) Urine Protein (Negative) Ur Leukocyte Esterase (Negative) Urine WBC (0-5) /hpf Ur Squamous Epith Cells (0-4) /hpf Urine Bacteria (None) /hpf Hyaline Casts (0-2) /lpf Urine Mucus (None) /hpf Microbiology - Last 24 Hours (Table) 01/09/19 16:20 Urine Culture - Preliminary Urine,Voided Assessment and Plan Assessment: acute febrile illness likely viral with sepsis - now off levophed - IV fluids - await ID consult and maintain levaquin - check EBV - blood cultures pending - urine and CXR negative, Hep profil;e negative, flu negative JAMEY - likely due to bactrin use and possible AIN - follow Cr - Remain off bactrim - avoid additional nephrotoxic agents Transaminitis - worsening - follow levels - liver US with hemangioma - hep panel negative Hypothyroidism - synthroid DVT prophylaxis: Heparin Discussed with: Patient, Critical care Anticipated discharge: 2-[address]: home A total of 35 minutes was spent on the care of this complex patient more than 50 % of the time was spent in counseling and care coordination.
[2019-01-10 19:25] LABS: EBV-VCA (IgG) >8.0 AI
[2019-01-10] MEDS: LEVOFLOXACIN 750MG-D5W PMX 750 MG in DEXTROSE/WATER 1 150ML.BAG IVPB SCH (21:00)
[2019-01-11] MEDS: HEPARIN SODIUM,PORCINE 5,000 UNIT/ML 1 ML VIAL SQ SCH ×4 (02:40→22:36)
[2019-01-11] MEDS ORDERED: fentaNYL (PF) 50 MCG/ML 2 ML AMP IVP ONE (03:20)
[2019-01-11] MEDS ORDERED: SODIUM CHLORIDE 0.9% 1,000 ML IV ONE (03:49)
[2019-01-11] MEDS: SODIUM CHLORIDE 0.9% 1,000 ML IV SCH ×2 (03:50→03:51)
[2019-01-11 04:40] LABS: Glucose,CSF 61 mg/dL (40-70); Total Protein,CSF 41 mg/dL (12-60)
[2019-01-11 04:51] LABS: Appearance,CSF CLEAR; CSF Tube Number 4
[2019-01-11] MEDS: ACETAMINOPHEN TAB 325 MG TAB PO PRN ×3 (04:51→18:31)
[2019-01-11 04:52] LABS: Nucleated Cells, CSF 1 u/L (0-5); Red Blood Cell,CSF 6 u/L (0-10)
[2019-01-11 04:56] LABS: HCT 32.3 % (34.0-46.0); HGB 10.4 gm/dL (11.4-16.0); Hypochromasia Slight; MCHC 32.1 g/dL (31.0-37.0); MCV 80.9 fL (80.0-100.0); Mean Platelet Volume 6.9; Platelet Count 174 k/uL (150-450); RBC 3.99 m/uL (3.80-5.40); RDW 14.6 % (11.5-15.5); WBC 4.1 k/uL (3.8-10.6)
[2019-01-11 05:18] LABS: Anion Gap 6 mmol/L; Blood Urea Nitrogen 9 mg/dL (7-17); Calcium 7.9 mg/dL (8.4-10.2); Carbon Dioxide 20 mmol/L (22-30); Chloride 112 mmol/L (98-107); Glucose 95 mg/dL (74-99); Magnesium 1.8 mg/dL (1.6-2.3); Phosphorus 2.3 mg/dL (2.5-4.5); Potassium 4.3 mmol/L (3.5-5.1); Sodium 138 mmol/L (137-145)
--- NOTE | 2019-01-11 05:59 | CONS ---
CONSULTATION DATE OF SERVICE: 01/10/2019 REASON FOR CONSULTATION: Fever and sepsis. HISTORY OF PRESENT ILLNESS: The patient is a 63-year-old female presenting to the ER at [facility] last night with chief complaints of fever. Apparently the patient seems to be not feeling well for the last few days. She recently did have a preop workup for her knee arthroscopy which the patient did have a nasopharyngeal swab which came back positive for Staph aureus. The patient was started on oral Bactrim DS one twice a day. The patient said that she has not felt well since she was started on that medication. The patient with no strength, no energy and slept most of the Thursday. When she woke up she noticed to have a fever of 104 degrees Fahrenheit. Subsequently the patient was brought to the ER for further evaluation. The patient denies having any runny nose or sore throat. Denies having any chest pain or shortness of breath or cough. No abdominal pain or any diarrhea. No burning or frequency of urine. On further questioning, the patient did mention a headache which is mostly frontal at times throbbing about 4 to 5 out of 10 and no radiation. With these symptoms the patient was evaluated by the ER physician. On arrival to the ER, the patient was hypotensive requiring multiple fluid boluses. She was febrile with a fever of 102.4 degrees Fahrenheit. At midnight she was 103.1 degrees Fahrenheit. The patient did have tachycardia on presentation, though her heart rate subsequently improved. No lowest blood pressure recorded has pain 85 systolic over 51. The patient workup did include the patient did have a normal white count of 5.3 repeat this morning is 4.2. The patient did have elevated creatinine of 1.3, potassium was 4.6, repeat is normal. She also had mildly elevated liver enzymes. Bilirubin was normal. UA was mildly positive. The patient did have influenza serology, which was negative. Hepatitis serology has been negative as well. EBV IgG positive, IgM is negative. Chest x-ray was negative for any acute infiltrate. An ultrasound of the gallbladder area did not show any features of cholecystitis. Patient treated with Rocephin and Levaquin. She was continued on Levaquin. Rocephin was discontinued. Infectious Disease was consulted for further recommendation regarding antibiotic therapy. REVIEW OF SYSTEMS: Positive points have been mentioned in HPI. Rest of systems has been negative. PAST MEDICAL HISTORY: Osteoarthritis, sleep apnea, hypothyroidism. PAST SURGICAL HISTORY: . SOCIAL HISTORY: Remote history of smoking. No drinking or drug use. FAMILY HISTORY: Father history of PE. Brother also with history of PE. Mother history of DVT. Sister with a history of cancer. ALLERGIES: No known drug allergies. MEDICATION: Medications include the patient is currently on Tylenol, heparin, Levaquin 750 daily, Synthroid, Narcan, Protonix. Rocephin discontinued. PHYSICAL EXAMINATION: On examination, blood pressure is 109/62 with a pulse of 77, temperature 99.2, T-max is 103. She is 97% on room air. General description is a middle-aged female lying in bed in no distress. No tachypnea or accessory muscle of respiration use. HEENT examination shows no pallor or scleral icterus. Oral mucous membrane is dry. No pharyngeal erythema or thrush. NECK: Trachea central. No thyromegaly. LUNGS: Unlabored breathing, clear to auscultation anteriorly. No wheeze or crackle. HEART: S1, S2. Regular rate and rhythm. ABDOMEN: Soft, no tenderness. No guarding. There is no organomegaly. EXTREMITIES: No edema of feet. SKIN EXAMINATION: No rash or mass palpable. NEUROLOGICAL: Patient is awake, alert, oriented x3 and no neck rigidity. LABS: Hemoglobin is 12.1, white count 4.2. BUN of 15, creatinine 1.43. Subsequently creatinine has normalized. Liver enzymes are elevated. Influenza serology negative. Hepatitis serologies negative except the EBV IgM is positive. Chest x-ray and ultrasound report as mentioned above. DIAGNOSTIC IMPRESSION AND PLAN: Patient admitted to the hospital with sepsis in this patient who did have fever of 102 to 103 degrees Fahrenheit. The patient was tachycardic. Source is possibly viral etiology in this patient who did have evidence of elevated liver enzymes. No thrombocytopenia has been noted. With headache present and no other clinical focus of infection underlying aseptic meningitis either viral etiology or secondary related to sulfamethoxazole as the patient's symptoms started after she started taking the Bactrim DS and the common drug associated with aseptic meningitis. PLAN: 1. We will obtain Anesthesia consult for stat LP with CSF to be sent for cell count, differential, glucose, protein and culture. 2. The patient already taken off the Bactrim DS. 3. IV fluid and monitor liver enzymes closely. 4. Continue with empiric Levaquin at this point, however, as clinical suspicion is low for underlying bacterial infection that discontinued as well. 5. We will follow up on clinical condition and CSF examination to further adjust her medication if needed. Thank you for this consultation. Will follow this patient along with you. MMODL / IJN: [id number] /
[2019-01-11] MEDS ORDERED: Magnesium Replacement Protocol 1 EACH MISC MISCELLANE PRN (06:22)
[2019-01-11] MEDS: LEVOTHYROXINE 50 MCG TAB PO SCH (07:00)
[2019-01-11] MEDS: MAGNESIUM SULFATE-D5W PMX 1 GM in DEXTROSE/WATER 1 100ML.BAG IVPB SCH ×2 (07:01→09:10)
[2019-01-11] MEDS: PANTOPRAZOLE 40 MG TABLET PO SCH (09:09)
--- NOTE | 2019-01-11 09:41 | P.PN ---
Subjective Progress Note Date: 01/11/19 Principal diagnosis: Acute febrile illness, rule out sepsis, possibly related to a viral infection This is 63-year-old white female patient of Dr. Luis Alberto Holly, with past medical history of hypothyroidism, obstructive sleep apnea on CPAP, former smoker, who presented to the emergency department on 01/09/2019 with complaints of a fever of 104F, weakness, shaking chills. Patient symptoms started midweek last week , with increasing weakness, not feeling well on and off. Of note patient went to see her PCP last week on Thursday who did a nasal swab in view of upcoming knee arthroscopy. Patient was then contacted on Thursday in view of her nasal swab being positive for staph and she was started on oral Bactrim. No On Thursday night patient started shaking, started experiencing numbness in her fingers, chills. But she denied any shortness of breath or chest pain, denied any nausea, vomiting or diarrhea, she denied any urinary symptoms, no upper respiratory symptoms, no back pain, neck pain or neck stiffness. She denied any sick contacts.. No lightheadedness or dizziness. Patient was experiencing some gait instability, she came in for evaluation on Thursday. Chest x-ray showed normal chest. Blood work showed white blood cell count of 5.3, hemoglobin of 12.8, serum sodium was 135, CO2 was 19, BUN was 15 and creatinine was 1.43, liver enzymes were elevated, with AST of 57, ALT was 71, and alkaline phosphatase was 202, troponins were negative 1, serum cortisone level was normal at 23. Urinalysis showed small amount of leuks, white blood cell count of 6, rare bacteria, influenza screen was negative, hepatitis A was negative. Gallbladder ultrasound was performed in view of elevated liver enzymes and showed hyperechoic 1.5 cm focus in the anterior left lobe of the liver probably related to hemangioma, no dilated ducts, no gallstones were seen. Follow-up chest x-ray showed normal chest. EKG showed normal sinus rhythm with left axis deviation, but no ischemic changes. Today on the chest x-ray was taken, and showed right basilar atelectasis. She was febrile on presentation with a temp of 102.4F. Hypotensive with a blood pressure of 70/51, she was fluid resuscitated with 3 L of 0.9 normal saline. She did require vasopressor support with a low dose of Levaquin at 5 mics per minute which was weaned off this morning. Blood and urine cultures were collected and sent, urine culture is pending, blood cultures pending. Antibiotic coverage is in the form of Rocephin and Levaquin and vancomycin. This morning patient is seen in intensive care unit, she is awake and alert, oriented 3, denies any distress, no difficulty breathing, no chest pain, no abdominal pain, no nausea or vomiting , she did have one episode of diarrhea this morning. No urinary complaints. Fever pattern is improving. Afebrile this morning. On 2018 patient seen in follow-up in intensive care unit, she is awake and alert, in no acute distress, although still complains of being fatigued, and weak, and does not have an appetite. No fever or chills, she is on room air , with a pulse ox of 98%, hemodynamically stable, not tachycardic, nontachypneic , denies any difficulty breathing, denies any chest pain, denies any abdominal pain, denies any headaches. Urine and blood culture are pending at this time, patient underwent a lumbar puncture yesterday, and the CSF fluid analysis was negative. Sounds are clear to auscultation, patient did have an episode of diarrhea last night, and again this morning, will check for C. diff. No nausea or vomiting. Infectious disease service is following, hepatitis serology was negative, EBV IgG positive, IgM is negative. Current antibiotic coverage in the form of Levaquin. Today's lab work has been reviewed, white blood cell, 4.1 , hemoglobin is 10.4, sodium is 138, potassium is 4.3, chloride is 112, CO2 is 20, BUN was 9 creatinine 0.78. Objective - Vital Signs Vital signs: Vital Signs Temp 98.2 F 01/11/19 04:00 Pulse 81 01/11/19 07:00 Resp 23 01/11/19 07:00 BP 92/65 01/11/19 07:00 Pulse Ox 95 01/11/19 07:00 Intake & Output 01/10/19 01/11/19 01/11/19 18:59 06:59 18:59 Intake Total 3160 2650 125 Output Total 2300 2250 600 Balance 860 400 -475 Weight 67.3 kg Intake: IV 1500 2650 125 Levofloxacin 750Mg-D5w 150 Pmx 750 mg In Dextrose/ Water 1 150ml.bag @ 100 mls/hr IVPB Q24H [facility] Rx#: [id number] Sodium Chloride 0.9% 1, 1500 1500 125 000 ml @ 125 mls/hr IV . Q8H [facility] Rx#:[id number] Sodium Chloride 0.9% 1, 1000 000 ml @ 999 mls/hr IV . Q1H1M [facility] Rx#:[id number] Intake, IV Titration 0 Amount Norepinephrine 8 mg In 0 Sodium Chloride 0.9% 250 ml @ 0.05 MCG/KG/MIN 6.49 mls/hr IV .Q24H [facility] Rx#: [id number] Oral 1660 Output: Urine 2300 2250 600 Other: Voiding Method Bedside Commode Bedside Commode # Voids 1 1 - Exam GENERAL EXAM: Alert, pleasant, 63-year-old white female, on room air comfortable in no apparent distress. HEAD: Normocephalic/atraumatic. EYES: Normal reaction of pupils, equal size. Conjunctiva pink, sclera white. NOSE: Clear with pink turbinates. THROAT: No erythema or exudates. NECK: No masses, no JVD, no thyroid enlargement, no adenopathy. CHEST: No chest wall deformity. Symmetrical expansion. LUNGS: Equal air entry with no crackles, wheeze, rhonchi or dullness. CVS: Regular rate and rhythm, normal S1 and S2, no gallops, no murmurs, no rubs ABDOMEN: Soft, nontender. No hepatosplenomegaly, normal bowel sounds, no guarding or rigidity. EXTREMITIES: No clubbing, no edema, no cyanosis, 2+ pulses and upper and lower extremities. MUSCULOSKELETAL: Muscle strength and tone normal. SPINE: No scoliosis or deformity SKIN: No rashes CENTRAL NERVOUS SYSTEM: Alert and oriented -3. No focal deficits, tone is normal in all 4 extremities. PSYCHIATRIC: Alert and oriented -3. Appropriate affect. Intact judgment and insight. - Labs CBC & Chem 7: 01/11/19 04:30 01/11/19 04:30 Labs: Abnormal Lab Results - Last 24 Hours (Table) 01/09/19 01/10/19 01/11/19 Range/Units 23:05 04:28 04:30 Hgb 10.4 L (11.4-16.0) gm/dL Hct 32.3 L (34.0-46.0) % Chloride (98-107) mmol/L Carbon Dioxide (22-30) mmol/L Calcium (8.4-10.2) mg/dL Phosphorus (2.5-4.5) mg/dL Procalcitonin 6.39 H (0.02-0.09) ng/mL EBV Capsid Ag IgG Intrp POSITIVE H (NEGATIVE) EBV Nuc Ag IgG Interp POSITIVE H (NEGATIVE) 01/11/19 Range/Units 04:30 Hgb (11.4-16.0) gm/dL Hct (34.0-46.0) % Chloride 112 H (98-107) mmol/L Carbon Dioxide 20 L (22-30) mmol/L Calcium 7.9 L (8.4-10.2) mg/dL Phosphorus 2.3 L (2.5-4.5) mg/dL Procalcitonin (0.02-0.09) ng/mL EBV Capsid Ag IgG Intrp (NEGATIVE) EBV Nuc Ag IgG Interp (NEGATIVE) Microbiology - Last 24 Hours (Table) 01/11/19 03:45 CSF Gram Stain - Preliminary Cerebral Spinal Fluid 01/09/19 16:07 Blood Culture - Preliminary Blood No Growth after 24 hours Assessment and Plan Plan: Assessment: #1. Febrile illness rule out sepsis, but it is likely related to a viral infection, patient is covered with empiric antibiotics, blood culture and urine cultures are pending. Chest x-ray is negative, no leukocytosis, gallbladder ultrasound showed no stones, no urinary complaints, no pulmonary complaints, no GI complaints #2. Hypotension, likely related to dehydration, rule out septic shock, responded well to IV fluid resuscitation. Did require short-term vasopressor support #3. Elevated liver enzymes, could be related to hypotension, gallbladder ultrasound was negative for obstruction, gallstones. Hepatitis A IgM negative #4. Non-anion gap metabolic acidosis related to acute kidney injury #5. Acute kidney injury related to dehydration and recent use of Bactrim #6. Nasal culture positive for staph, treated with oral course of Bactrim, was asymptomatic, could be just a carrier #7. Hypothyroidism #8. Obstructive sleep apnea on CPAP #9. Former smoker Plan: Patient remains hemodynamically stable, no fever or chills, no difficulty breathing, no chest pain, no abdominal pain, we'll send stool for C. diff, CSF fluid analysis is negative, final cultures pending, urine and blood cultures are pending. From pulmonary perspective patient is stable to go out of the intensive care unit to a general medical floor. Will follow along with the infectious disease service, and make further recommendations based on the course of illness I performed a history & physical examination of the patient and discussed their management with my nurse practitioner, Annette Escalante. I reviewed the nurse practitioner's note and agree with the documented findings and plan of care. Lung sounds are positive for clear breath sounds. The findings and the impression was discussed with the patient. I attest to the documentation by the nurse practitioner. Time with Patient: Less than 30
[2019-01-11 11:21] LABS: Total Bilirubin 0.4 mg/dL (0.2-1.3)
--- NOTE | 2019-01-11 12:16 | P.PCN ---
Date of Procedure: 01/11/19 Preoperative Diagnosis: fatigue Postoperative Diagnosis: same Procedure(s) Performed: Lumbar Puncture Anesthesia: other (fentanyl 50mcg IV push) Surgeon: Mitchell Robin Estimated Blood Loss (ml): 0 IV fluids (ml): 0 Urine output (ml): 0 Pathology: other (4 serial samples of CSF produced and sent to the lab) Condition: stable Disposition: ICU Indications for Procedure: fatigue Operative Findings: Clear CSF without signs of increased pressure or exudate Description of Procedure: sterile technique performed with patient in lateral decubitus position. skin marked with 2 cc 1% Lidocaine and spinal needle advanced intrathecally without difficulty. spinal fluid was clear and without signs of elevated pressure. samples obtained and needle removed without complications
--- NOTE | 2019-01-11 16:37 | P.PN ---
Subjective Progress Note Date: 01/11/19 (delayed charting patient seen at 0845) Principal diagnosis: weakness Patient is a 63-year-old female past medical history of hypothyroidism , arthritis, sleep apnea who presented to the ER with complaints of a fever and lethargy. She was recently getting worked up for a knee scope and was told she had staph in her nasal passages. She was therefore started on Bactrim. In the ER she underwent a Comprehensive evaluation. Her initial blood pressure was 91/ 55 and temperature was 102.4. Laboratory analysis revealed white blood cell count of 5.3, sodium 135, carbon dioxide 19, BUN 15, and creatinine 1.43. She was also found to have mildly elevated AST at 57 and ALT at 71. T bili was normal. She underwent a urinalysis which did not show any signs of UTI. Chest x-ray reviewed process. Gallbladder ultrasound showed possible liver hemangioma and the anterior left lobe but no signs of gallstones. Influenza nasal swab was negative. Despite IV fluid she remained hypotensive in the ER necessitating the use of levo. She was started on broad-spectrum antibiotics with Levaquin and Rocephin. She was therefore admitted to the ICU. Random cortisol level as well as hepatitis profiles were negative. She was able to be weaned off levo fed by the morning of 01/10. She underwent a lumbar puncture on 01/10 which was negative. Pro-calcitonin did come back elevated at 6.89. Her antibiotics were narrowed to Levaquin by infectious disease. Patient seen and examined at bedside. She denies any chest pain, shortness of breath, nausea, vomiting, or diarrhea. She is still feeling lethargic. Updated on all testing results. Objective - Vital Signs Vital signs: Vital Signs Temp 98.8 F 01/11/19 14:00 Pulse 88 01/11/19 16:00 Resp 28 H 01/11/19 16:00 BP 129/71 01/11/19 16:00 Pulse Ox 91 L 01/11/19 16:00 Intake & Output 01/10/19 01/11/19 01/11/19 18:59 06:59 18:59 Intake Total 3160 2650 1355 Output Total 2300 2250 2800 Balance 860 400 -1445 Weight 67.3 kg Intake: IV 1500 2650 875 Levofloxacin 750Mg-D5w 150 Pmx 750 mg In Dextrose/ Water 1 150ml.bag @ 100 mls/hr IVPB Q24H [facility] Rx#: [id number] Sodium Chloride 0.9% 1, 1500 1500 875 000 ml @ 125 mls/hr IV . Q8H [facility] Rx#:[id number] Sodium Chloride 0.9% 1, 1000 000 ml @ 999 mls/hr IV . Q1H1M [facility] Rx#:[id number] Intake, IV Titration 0 Amount Norepinephrine 8 mg In 0 Sodium Chloride 0.9% 250 ml @ 0.05 MCG/KG/MIN 6.49 mls/hr IV .Q24H [facility] Rx#: [id number] Oral 1660 480 Output: Urine 2300 2250 2200 Urine/Stool Mix 600 Other: Voiding Method Bedside Commode Bedside Commode Bedside Commode # Voids 1 1 # Bowel Movements 1 - Exam General: Nontoxic, no distress, appears at stated age Derm: warm, dry Head: atraumatic, normocephalic, symmetric Eyes: EOMI, no lid lag, anicteric sclera Mouth: no lip lesion, mucus membranes moist Cardiovascular: S1S2 reg, no murmur, positive posterior tibial pulse bilateral, Lungs: Decreased breath sounds bilateral, no rhonchi, no rales , no accessory muscle use Abdominal: soft, nontender to palpation, no guarding, no appreciable organomegaly Ext: no gross muscle atrophy, no edema, no contractures Neuro: CN II-XI grossly intact, no focal neuro deficits, negative Kernig's and bruzinskis Psych: Alert, oriented, appropriate affect - Labs CBC & Chem 7: 01/11/19 04:30 01/11/19 04:30 Labs: Abnormal Lab Results - Last 24 Hours (Table) 01/09/19 01/10/19 01/11/19 Range/Units 23:05 04:28 04:30 Hgb 10.4 L (11.4-16.0) gm/dL Hct 32.3 L (34.0-46.0) % Chloride (98-107) mmol/L Carbon Dioxide (22-30) mmol/L Calcium (8.4-10.2) mg/dL Phosphorus (2.5-4.5) mg/dL AST (14-36) U/L ALT (9-52) U/L Alkaline Phosphatase (38-126) U/L Procalcitonin 6.39 H (0.02-0.09) ng/mL EBV Capsid Ag IgG Intrp POSITIVE H (NEGATIVE) EBV Nuc Ag IgG Interp POSITIVE H (NEGATIVE) 01/11/19 01/11/19 Range/Units 04:30 04:30 Hgb (11.4-16.0) gm/dL Hct (34.0-46.0) % Chloride 112 H (98-107) mmol/L Carbon Dioxide 20 L (22-30) mmol/L Calcium 7.9 L (8.4-10.2) mg/dL Phosphorus 2.3 L (2.5-4.5) mg/dL AST 55 H (14-36) U/L ALT 72 H (9-52) U/L Alkaline Phosphatase 185 H (38-126) U/L Procalcitonin (0.02-0.09) ng/mL EBV Capsid Ag IgG Intrp (NEGATIVE) EBV Nuc Ag IgG Interp (NEGATIVE) Microbiology - Last 24 Hours (Table) 01/11/19 03:45 CSF Gram Stain - Preliminary Cerebral Spinal Fluid 01/09/19 16:07 Blood Culture - Preliminary Blood No Growth after 24 hours Assessment and Plan Assessment: acute febrile illness likely viral with sepsis - now off levophed - IV fluids - await ID consult and maintain levaquin - EBV consistent with past infection - LP negative - Procalcitonin negative - blood cultures pending - urine and CXR negative, Hep profile negative, flu negative Transaminitis, improving - follow levels - liver US with hemangioma - hep panel negative Hypothyroidism - synthroid JAMEY, resolved Transfer to [facility] DVT prophylaxis: Heparin Discussed with: Patient, Critical care Anticipated discharge: in AM Anticipated discharge place: home A total of 35 minutes was spent on the care of this complex patient more than 50 % of the time was spent in counseling and care coordination.
[2019-01-11] MEDS: LEVOFLOXACIN 750MG-D5W PMX 750 MG in DEXTROSE/WATER 1 150ML.BAG IVPB SCH (21:17)
[2019-01-11] MEDS: MELATONIN 3 MG TABLET PO SCH (22:33)
[2019-01-12] MEDS: ACETAMINOPHEN TAB 325 MG TAB PO PRN ×2 (02:45→14:28)
[2019-01-12] MEDS: LEVOTHYROXINE 50 MCG TAB PO SCH (06:12)
--- NOTE | 2019-01-12 06:16 | PN ---
PROGRESS NOTE DATE OF SERVICE: 01/11/2019. REASON FOR FOLLOWUP VISIT: Fever, question of viral syndrome. INTERVAL HISTORY: The patient was seen on rounds this morning. The patient has been afebrile. The patient did have LP completed yesterday which was essentially negative. The patient denies having any headache or chest pain or shortness of breath. No cough. She has been complaining of some loose stool and attributing that to the antibiotic the patient is currently on. PHYSICAL EXAMINATION: Blood pressure is 106/67, pulse of 74, temp 97.3, T-max is 101.1. She is 93% on room air. General description is a middle-aged female up in the bed in no distress. HEENT examination is slight pallor. No scleral icterus. Oral mucosal membranes are dry. Lungs unlabored breathing, decreased breath sounds at the bases. Heart S1, S2. Regular rate and rhythm. Abdomen soft, nontender. LABS: Hemoglobin is 10.4, white count 4.1 with BUN of 9, creatinine 0.78. DIAGNOSTIC IMPRESSION AND PLAN: Patient with fever with concern for possible viral syndrome. The patient did have elevated enzymes which are coming down now. With a new fever that is slightly concerning, a CT of abdomen and pelvis to be done to make sure there is no evidence of any intraabdominal pathology and better define the liver and area. Continue antibiotic Levaquin at this point. We will re-evaluate the patient tomorrow. Continue supportive care. MMODL / IJN: [id number] /
[2019-01-12] MEDS: IOPAMIDOL-300 CONTRAST 30 ML VIAL (ORAL USE) PO PRN ×2 (08:15→08:46)
[2019-01-12 08:21] LABS: HCT 35.3 % (34.0-46.0); HGB 11.2 gm/dL (11.4-16.0); Hypochromasia Slight; MCH 25.7 pg (25.0-35.0); MCHC 31.7 g/dL (31.0-37.0); Platelet Count 195 k/uL (150-450); RBC 4.35 m/uL (3.80-5.40); RDW 14.9 % (11.5-15.5); WBC 5.7 k/uL (3.8-10.6)
[2019-01-12] MEDS: HEPARIN SODIUM,PORCINE 5,000 UNIT/ML 1 ML VIAL SQ SCH ×3 (08:31→23:24)
[2019-01-12] MEDS: PANTOPRAZOLE 40 MG TABLET PO SCH (08:31)
[2019-01-12 08:41] LABS: Calcium 8.5 mg/dL (8.4-10.2); Magnesium 1.9 mg/dL (1.6-2.3); Potassium 3.9 mmol/L (3.5-5.1); Total Bilirubin 0.6 mg/dL (0.2-1.3); Total Protein 5.8 g/dL (6.3-8.2)
--- NOTE | 2019-01-12 11:18 | CT ---
EXAMINATION TYPE: CT abdomen pelvis w con DATE OF EXAM: 01/12/2019 HISTORY: Septic shock, fever CT DLP: 1117mGycm Automated Exposure Control for Dose Reduction was Utilized. CONTRAST: CT scan of the abdomen and pelvis is performed with IV Contrast, patient injected with 100 mL of Isov ue 300. COMPARISON: Gallbladder ultrasound dated 01/09/2019 and renal ultrasound dated 01/05/2017 FINDINGS: LUNG BASES: There is a trace left pleural effusion and bibasilar atelectasis. LIVER/GB: Hypoattenuated region near the falciform ligament on series 3 image 29 most commonly repres ents focal fatty infiltration.. PANCREAS: No significant abnormality is seen. SPLEEN: No significant abnormality is seen. ADRENALS: No significant abnormality is seen. KIDNEYS: Again there is atrophy of the left kidney with uroepithelial thickening seen of the proximal ureter. No gross obstruction. Right-sided extrarenal pelvis is noted. No dilated ureter or gross hyd ronephrosis. BOWEL: There is a moderate amount retained colonic stool. Few prominent loops of small bowel relate t o mild ileus. No transition point is seen to suggest obstruction. Contrast extends to the level of th e terminal ileum. Stomach appears nondistended with thickened galan of the gastric body and antrum me asuring up to 9 mm. No surrounding inflammatory fat stranding is seen. UTERUS/ADNEXA: Small amount of free fluid is seen within the posterior cul-de-sac, likely physiologic in nature. LYMPH NODES: No greater than 1cm abdominal or pelvic lymph nodes are appreciated. OSSEOUS STRUCTURES: Degenerative disc disease is seen at L5-S1. OTHER: Right-sided femoral central venous catheter terminates in the common iliac vein. IMPRESSION: 1. Trace left pleural effusion and bibasilar atelectasis. 2. Mildly prominent loops of small bowel without obstruction related to mild ileus. 3. Chronic left renal atrophy. Uroepithelial thickening is present in the proximal ureter and could r epresent infectious etiology, chronic inflammatory process or less likely neoplasm. 4. Thickening of the gastric body and antrum that may relate to gastritis, incomplete distention, or mucosal neoplasm. Upper endoscopy could be performed pending patient's clinical status.
--- NOTE | 2019-01-12 12:44 | P.PN ---
Subjective Progress Note Date: 01/12/19 Principal diagnosis: weakness Patient is a 63-year-old female past medical history of hypothyroidism , arthritis, sleep apnea who presented to the ER with complaints of a fever and lethargy. She was recently getting worked up for a knee scope and was told she had staph in her nasal passages. She was therefore started on Bactrim. In the ER she underwent a Comprehensive evaluation. Her initial blood pressure was 91/ 55 and temperature was 102.4. Laboratory analysis revealed white blood cell count of 5.3, sodium 135, carbon dioxide 19, BUN 15, and creatinine 1.43. She was also found to have mildly elevated AST at 57 and ALT at 71. T bili was normal. She underwent a urinalysis which did not show any signs of UTI. Chest x-ray reviewed process. Gallbladder ultrasound showed possible liver hemangioma in the anterior left lobe but no signs of gallstones. Influenza nasal swab was negative. Despite IV fluid she remained hypotensive in the ER necessitating the use of levo. She was started on broad-spectrum antibiotics with Levaquin and Rocephin. She was therefore admitted to the ICU. Random cortisol level as well as hepatitis profiles were negative. She was able to be weaned off levo fed by the morning of 01/10. She underwent a lumbar puncture on 01/10 which was negative. Pro-calcitonin did come back elevated at 6.89. Her antibiotics were narrowed to Levaquin by infectious disease. She spiked fevers again on 01/[address] was ordered which showed some ileus and thinking of the gastric antrum. It also showed left renal atrophy, patient has a known history of this and a benign UA. Patient seen and examined at bedside. She denies any chest pain, shortness of breath, nausea, vomiting. Still feeling tired and off, having a HYLTON still. She deines and hx of issues with acid refulx, waking up with an acid taste on metallic taste in her mouth. Has recently lost 10 lb but is trying to with a modified diet with protein supplements and energy drinks. She is making her own guinean yogurt, fermented milk, and fermented tea. Updated on all testing results. Case discussed with GI who will eval patient. Objective - Vital Signs Vital signs: Vital Signs Temp 97.6 F 01/12/19 06:13 Pulse 79 01/12/19 06:13 Resp 17 01/12/19 06:13 BP 109/67 01/12/19 06:13 Pulse Ox 99 01/12/19 06:13 Intake & Output 01/11/19 01/12/19 01/12/19 18:59 06:59 18:59 Intake Total 1355 Output Total 2800 Balance -1445 Intake: IV 875 Sodium Chloride 0.9% 1, 875 000 ml @ 125 mls/hr IV . Q8H [facility] Rx#:[id number] Oral 480 Output: Urine 2200 Urine/Stool Mix 600 Other: Voiding Method Bedside Commode Toilet Toilet # Voids 1 2 1 # Bowel Movements 1 - Exam General: Nontoxic, no distress, appears at stated age Derm: warm, dry Head: atraumatic, normocephalic, symmetric Eyes: EOMI, no lid lag, anicteric sclera Mouth: no lip lesion, mucus membranes moist Cardiovascular: S1S2 reg, no murmur, positive posterior tibial pulse bilateral, Lungs: CTA bilateral, no rhonchi, no rales , no accessory muscle use Abdominal: soft, nontender to palpation, no guarding, no appreciable organomegaly Ext: no gross muscle atrophy, no edema, no contractures Neuro: CN II-XI grossly intact, no focal neuro deficits Psych: Alert, oriented, appropriate affect - Labs CBC & Chem 7: 01/12/19 07:45 01/12/19 07:45 Labs: Abnormal Lab Results - Last 24 Hours (Table) 01/12/19 01/12/19 01/12/19 Range/Units 07:45 07:45 07:45 Hgb 11.2 L (11.4-16.0) gm/dL Phosphorus 2.0 L (2.5-4.5) mg/dL AST 43 H (14-36) U/L ALT 68 H (9-52) U/L Alkaline Phosphatase 289 H (38-126) U/L Total Protein 5.8 L (6.3-8.2) g/dL Albumin 3.0 L (3.5-5.0) g/dL Procalcitonin 2.80 H (0.02-0.09) ng/mL Microbiology - Last 24 Hours (Table) 01/11/19 03:45 CSF Gram Stain - Preliminary Cerebral Spinal Fluid CSF Culture - Preliminary 01/09/19 16:20 Urine Culture - Final Urine,Voided 01/09/19 16:07 Blood Culture - Preliminary Blood No Growth after 48 hours Assessment and Plan Assessment: acute febrile illness likely viral with sepsis - off levophed, IVF completed - ID recs appreciated and maintain levaquin - EBV consistent with past infection - LP negative - Procalcitonin positive at greater than 6 and coming down - blood cultures pending - urine and CXR negative, Hep profile negative, flu negative - stool studies pending Thickening gastic body and antrum - GI eval. likely scope in AM Transaminitis, improving - follow levels - liver US with hemangioma - hep panel negative, EBV negative Hypothyroidism - synthroid - check TSH JAMEY, resolved Sepsis, resolved DVT prophylaxis: Heparin Discussed with: Patient, ID, GI Anticipated discharge: in AM Anticipated discharge place: home A total of 35 minutes was spent on the care of this complex patient more than 50 % of the time was spent in counseling and care coordination.
--- NOTE | 2019-01-12 14:53 | P.CONS ---
History of Present Illness - Reason for Consult Consult date: 01/12/[address] Requesting physician: Milly Leon - Chief Complaint Fever - History of Present Illness 63-year-old female with a past medical history of osteoarthritis thyroid disorder presents with multiple constitutional complaints including fever hypotension and systolic blood pressures in the 70s requiring short term IV pressors sepsis Sirs type presentation. Patient has not felt well for at least a week with suspected fevers night sweats over the past week. On admission T- max 102.4, blood cultures so far no growth. Patient developed recurrent fever last night T-max 101.1. Denies abdominal pain. Denies respiratory symptoms such as hemoptysis cough. White count 4.1-5.7. Hemoglobin 10.4-12.8. Platelet 174-294. Admission total bilirubin 0.5. AST 57. ALT 71. AP 202. Pro-calcitonin 2.8-6.3. hepatitis screen nonreactive. Influenza not detected. EBV unremarkable findings consistent with previous exposure. Ultrasound abdomen 1.5 cm probable liver hemangioma. CBD 0.6 cm. No stones. no international travels. She visited [facility] earlier this month for a few days visiting family. No history of liver disorders. No alcoholism. No NSAIDs or aspirin. Patient makes her own yogurt and Kombucha tea at home and has been doing so for at least a year. Her daughter gave her [place] gift of a liquid protein nutritional supplement which she started 4 weeks ago with her last supplement about a week ago. Mild weight loss but not more than 15 pounds. Denies hematemesis hematochezia melena. Colonoscopy within the last few years to her memory was unremarkable. No EGD. CT abdomen and pelvis chronic left renal atrophy. Uroepithelial thickening is present in the proximal ureter and could represent infectious etiology chronic inflammatory process less likely neoplasm. There is thickening of the gastric body and antrum that could relate to gastritis incomplete distention or mucosal neoplasm. Infectious disease consulted and following closely. Patient underwent spinal tap CSF fluid unremarkable. Urinalysis unremarkable. Review of Systems Constitutional: Admitted with fever chills sweats denies weight gain, or loss. HEENT: Negative for migraines, blurred vision or loss, earaches, drainage, tinnitus, oral mucosal lesions, dysphagia, or odynophagia. CARDIAC: Negative for chest pain, arrhythmias, or palpitation. RESPIRATORY: Negative for shortness of breath, hemoptysis, cough, or sputum production. GI: See HPI for pertinent findings. : Negative for hematuria, urgency, frequency, polyuria, or dysuria. GYNc: Denies possibility of . Negative vaginal discharge. MUSCULOSKELETAL: Negative for muscle aches, swelling, arthritis, and arthralgias. NEUROLOGIC: Negative for stroke or TIA. ENDOCRINE: Negative for thyroid problems. SKIN: Negative for rash or itching. PSYCHIATRIC: Negative history for depression and anxiety Past Medical History Past Medical History: Osteoarthritis (OA), Sleep Apnea/CPAP/BIPAP, Thyroid Disorder History of Any Multi-Drug Resistant Organisms: None Reported Past Surgical History: Section Past Anesthesia/Blood Transfusion Reactions: No Reported Reaction Smoking Status: Former smoker - Past Family History Sister(s) Family Medical History: Cancer Father Family Medical History: Pulmonary Embolus Brother(s) Family Medical History: Pulmonary Embolus Mother Family Medical History: Deep Vein Thrombosis (DVT) Medications and Allergies Home Medications Medication Instructions Recorded Confirmed Type Levothyroxine Sodium [Synthroid] 50 mcg PO DAILY 07/31/16 01/09/19 History Sulfamethoxazole/Trimethoprim 1 tab PO BID 01/09/19 01/09/19 History [Bactrim DS 800-160 mg] Allergies Allergy/AdvReac Type Severity Reaction Status Date / Time No Known Allergies Allergy Verified 01/09/19 15:12 Physical Exam Vitals: Vital Signs Temp Pulse Pulse Resp BP BP Pulse Ox 01/12/19 06:13 97.6 F 79 17 109/67 99 01/11/19 22:45 97.3 F L 74 17 106/67 96 01/11/19 18:26 101.1 F H 99 16 120/68 98 01/11/19 17:00 83 26 H 114/66 94 L 01/11/19 16:00 88 28 H 129/71 91 L 01/11/19 15:00 90 28 H 145/80 92 L Intake and Output 01/11/19 01/12/19 01/12/19 22:59 06:59 14:59 Intake Total 240 Output Total 1200 Balance -960 Intake: Oral 240 Output: Urine 600 Urine/Stool Mix 600 Other: Voiding Method Toilet Toilet # Voids 2 2 1 # Bowel Movements 1 General appearance: The patient is alert, oriented, in no acute distress. HET: Head is normocephalic and atraumatic. Pupils are equal and reactive. Oropharynx is clear without lesions. Neck: Supple without lymphadenopathy. Trachea midline. Heart: S1 S2. Regular rate and rhythm. Lungs: No crackles or wheezes are heard. Abdomen: Soft, nontender, nondistended with bowel sounds. No peritoneal signs. No palpable organomegaly or masses. Extremities: Normal skin color and turgor. No cyanosis, rash, ulceration, clubbing, or edema. Radial and pedal pulses are 2/4 bilaterally. Neurological: No focal deficits. Strength and sensation are grossly intact. Results CBC & Chem 7: 01/12/19 07:45 01/12/19 07:45 Labs: Abnormal Lab Results - Last 24 Hours (Table) 01/12/19 01/12/19 01/12/19 Range/Units 07:45 07:45 07:45 Hgb 11.2 L (11.4-16.0) gm/dL Phosphorus 2.0 L (2.5-4.5) mg/dL AST 43 H (14-36) U/L ALT 68 H (9-52) U/L Alkaline Phosphatase 289 H (38-126) U/L Total Protein 5.8 L (6.3-8.2) g/dL Albumin 3.0 L (3.5-5.0) g/dL Procalcitonin 2.80 H (0.02-0.09) ng/mL Microbiology - Last 24 Hours (Table) 01/11/19 03:45 CSF Gram Stain - Preliminary Cerebral Spinal Fluid CSF Culture - Preliminary 01/09/19 16:20 Urine Culture - Final Urine,Voided 01/09/19 16:07 Blood Culture - Preliminary Blood No Growth after [address] scan - abdomen: report reviewed (Dr. Stauffer) US - abdomen: report reviewed (Dr. Stauffer) Assessment and Plan (1) Gastric wall thickening Narrative/Plan: 63-year-old female presents with acute febrile illness sepsis presentation of unclear etiology LP negative suspected viral in nature with mild transaminitis unremarkable abdominal ultrasound. CT reported gastric wall thickening underlying neoplasm gastritis inflammation could not be excluded. Current Visit: Yes Status: Acute Code(s): K31.89 - OTHER DISEASES OF STOMACH AND DUODENUM SNOMED Code(s): 49428660 (2) Fever Current Visit: Yes Status: Acute Code(s): R50.9 - FEVER, UNSPECIFIED SNOMED Code(s): 681860221 (3) Transaminitis Current Visit: Yes Status: Acute Code(s): R74.0 - NONSPEC ELEV OF LEVELS OF TRANSAMNS & LACTIC ACID DEHYDRGNSE SNOMED Code(s): 331963978 Plan: 1. EGD evaluation tomorrow. 2. Continue with IV antibiotics appreciate ID input. 3. Repeat blood cultures requested and pending. 4. Diet as tolerated nothing by mouth after midnight. Daily CBC CMP. Will follow closely with you. The pencils washer has discussed the risks, benefits and alternative therapies for the above-mentioned procedure and for both sedation/analgesia as well as necessary blood product administration, if indicated, as they pertain to this patient. The patient has indicated understanding and acceptance of the risks and procedures discussed. Thank you for this kind referral and the opportunity to participate in the care of your patient. This consultation was discussed with Dr. Stauffer. The impression and plan of care have been directed as dictated.
[2019-01-12] MEDS ORDERED: LEVOFLOXACIN 750 MG TAB PO SCH (20:00)
[2019-01-12] MEDS: MELATONIN 3 MG TABLET PO SCH (20:22)
--- NOTE | 2019-01-12 20:47 | PN ---
PROGRESS NOTE DATE OF SERVICE: 01/12/2019 REASON FOR FOLLOWUP: Fever, possible viral syndrome. INTERVAL HISTORY: The patient did spike another fever last night of 101.1 degrees Fahrenheit. The patient did have repeat cultures obtained. CT of abdomen and pelvis was ordered for this morning. The patient denies having any chest pain or cough. Feeling nauseated but no vomiting. No abdominal pain or any diarrhea. PHYSICAL EXAMINATION: Blood pressure 94/60 with a pulse of 69, temperature 98.2. She is 98% on room air. General description is a middle-aged female lying in bed in no distress. RESPIRATORY SYSTEM: Unlabored breathing. Clear to auscultation anteriorly. HEART: S1, S2. Regular rate and rhythm. ABDOMEN: Soft. No tenderness. EXTREMITIES: No edema of the feet. LABS: Hemoglobin is 11.2, white count 5.7, BUN of 8, creatinine 0.97. Liver enzymes have slightly improved except the alkaline phosphatase. CT of the abdomen and pelvis with no acute abnormality except some prominent loops of the bowel and uroepithelial thickening. DIAGNOSTIC IMPRESSION AND PLAN: Patient with a fever with concern for possible viral etiology. CT of abdomen and pelvis did show some abnormality of the uroepithelium, but UA was not significantly positive. The patient's urine culture is so far negative. Patient to continue on empiric Levaquin at this point. Monitor clinical course closely. Continue with supportive care. MMODL / IJN: [id number] /
[2019-01-13] MEDS ORDERED: MIDAZOLAM 2 MG/2 ML VIAL ONE (09:43)
[2019-01-13] MEDS ORDERED: PROPOFOL 10 MG/ML 20 ML VIAL IV ONE (09:43)
[2019-01-13] MEDS ORDERED: LIDOCAINE 1% INJ 10MG/ML (20 ML MDV) ONE (09:43)
[2019-01-13] MEDS ORDERED: LACTATED RINGERS 1,000 ML IV ONE (09:46)
--- NOTE | 2019-01-13 10:19 | P.PCN ---
Date of Procedure: 01/13/19 Description of Procedure: BRIEF HISTORY: 63-year-old female with a past medical history of osteoarthritis thyroid disorder presents with multiple constitutional complaints including fever hypotension and systolic blood pressures in the 70s requiring short term IV pressors sepsis SIRS type presentation. Patient has not felt well for at least a week with suspected fevers night sweats over the past week. On admission T- max 102.4, blood cultures so far no growth. Patient developed recurrent fever last night T-max 101.1. Denies abdominal pain. Denies respiratory symptoms such as hemoptysis cough. White count 4.1-5.7. Hemoglobin 10.4-12.8. Platelet 174-294. Admission total bilirubin 0.5. AST 57. ALT 71. AP 202. Pro- calcitonin 2.8-6.3. Hepatitis screen nonreactive. Ultrasound abdomen 1.5 cm probable liver hemangioma. CBD 0.6 cm. No stones. Denies hematemesis hematochezia melena. Colonoscopy within the last few years to her memory was unremarkable. No EGD. CT abdomen and pelvis chronic left renal atrophy. Uroepithelial thickening is present in the proximal ureter and could represent infectious etiology chronic inflammatory process less likely neoplasm. There is thickening of the gastric body and antrum that could relate to gastritis incomplete distention or mucosal neoplasm. PROCEDURE PERFORMED: Esophagogastroduodenoscopy with biopsy. PREOPERATIVE DIAGNOSIS: Abnormal CT scan imaging, gastric thickening on computed tomography scan. ESTIMATED BLOOD LOSS: Minimal. IV sedation per anesthesia. PROCEDURE: After informed consent was obtained, the patient was brought into the endoscopy unit. IV sedation was administered by Anesthesia under continuous monitoring. Initially the Olympus GIF-190 video endoscope was inserted into the mouth. Esophagus intubated without any difficulty. It was gradually advanced into the stomach and duodenum and carefully examined. The bulb and the second part of the duodenum appeared normal, except for some mild scattered erythema suggestive of duodenitis with biopsies taken. The scope at this time was withdrawn to the stomach, adequately insufflated with air, and upon careful examination, mucosa of the antrum, body, cardia and the fundus appeared normal, with scattered erythema in the antrum and body suggestive of mild gastritis which was biopsied. Small hiatal hernia was noted. The scope was then withdrawn into the esophagus. The GE junction was located at 37 cm from the incisors. The esophagus appeared normal. There were no erosions or ulcerations seen and the patient tolerated the procedure well. IMPRESSION: 1. No masses in the area of stomach seen on computed tomography scan. 2. Mild gastritis of the antrum and body, biopsied. 3. Mild duodenitis, biopsied. 4. Small hiatal hernia. RECOMMENDATIONS: The findings of this examination were discussed with the patient. Okay to resume diet. Continue Protonix daily. Await pathology from biopsies.
[2019-01-13 10:20] LABS: HCT 35.2 % (34.0-46.0); HGB 11.5 gm/dL (11.4-16.0); MCH 26.5 pg (25.0-35.0); MCHC 32.7 g/dL (31.0-37.0); Mean Platelet Volume 7.9; Platelet Count 206 k/uL (150-450); RBC 4.35 m/uL (3.80-5.40); RDW 15.4 % (11.5-15.5); WBC 6.1 k/uL (3.8-10.6)
[2019-01-13 10:33] LABS: Albumin 3.2 g/dL (3.5-5.0); Calcium 8.6 mg/dL (8.4-10.2); Potassium 4.4 mmol/L (3.5-5.1); Total Bilirubin 0.5 mg/dL (0.2-1.3); Total Protein 6.2 g/dL (6.3-8.2)
[2019-01-13] MEDS: LACTATED RINGERS 1,000 ML IV SCH (10:50)
[2019-01-13] MEDS: PANTOPRAZOLE 40 MG TABLET PO SCH (10:52)
[2019-01-13] MEDS: LEVOTHYROXINE 50 MCG TAB PO SCH (10:52)
[2019-01-13] MEDS: HEPARIN SODIUM,PORCINE 5,000 UNIT/ML 1 ML VIAL SQ SCH ×3 (10:52→23:51)
--- NOTE | 2019-01-13 11:55 | P.PN ---
Subjective Progress Note Date: 01/13/19 Principal diagnosis: Patient still nauseated still feels weak no chest pain no shortness of breath Constitutional: No acute distress, conversant, pleasant Eyes: Anicteric sclerae, no lid-lag PERRLA ENMT: NC/AT Oropharynx clear, no erythema, exudates Neck: Supple, Lungs: Clear to auscultation Cardiovascular: Heart regular in rate and rhythm, No murmurs, gallops, or rubs No peripheral edema Abdominal: Soft Nontender, no guarding, Skin: Normal temperature, tone, Extremities: No digital cyanosis No clubbing Pedal pulses intact and symmetrical Radial pulses intact and symmetrical Normal gait and station No calf tenderness Psychiatric:Alert and oriented to person, place and time Appropriate affect Intact judgement Neuro: generalized weakness Vital Signs - 24 hr 01/12/19 01/12/19 01/13/19 15:34 23:45 06:00 Temperature 98.2 F 98 F 98.1 F Pulse Rate [ 69 68 79 Pulse Oximetery ] Respiratory 18 20 20 Rate Blood Pressure 94/60 [Left Arm] Blood Pressure 112/68 111/70 [Right Arm] O2 Sat by Pulse 98 98 96 Oximetry 01/13/19 01/13/19 08:00 10:26 Temperature 97.6 F Pulse Rate [ 74 Pulse Oximetery ] Respiratory 20 20 Rate Blood Pressure 115/57 [Left Arm] Blood Pressure [Right Arm] O2 Sat by Pulse 97 Oximetry acute febrile illness likely viral with sepsis - off levophed, IVF completed - ID recs appreciated and maintain levaquin - EBV consistent with past infection - Patient states that she still very weak still nauseated we will continue current management Thickening gastic body and antrum - Possibly scope being today Transaminitis, - follow levels - liver US with hemangioma - hep panel negative, EBV negative Hypothyroidism - synthroid - check TSH JAMEY, resolved Sepsis, resolved Generalized weakness Persistent nausea Continue to monitor for another day or 2 Objective - Vital Signs Vital signs: Vital Signs Temp 97.6 F 01/13/19 10:26 Pulse 74 01/13/19 10:26 Resp 20 01/13/19 10:26 BP 115/57 01/13/19 10:26 Pulse Ox 97 01/13/19 10:26 Intake & Output 01/12/19 01/13/19 01/13/19 18:59 06:59 18:59 Intake Total 300 200 Balance 300 200 Intake: IV 200 Oral 300 Other: Voiding Method Toilet Toilet Toilet # Voids 1 1 - Labs CBC & Chem 7: 01/13/19 09:19 01/13/19 09:19 Labs: Abnormal Lab Results - Last 24 Hours (Table) 01/12/19 01/12/19 01/13/19 Range/Units 07:45 07:45 09:19 Phosphorus 2.0 L (2.5-4.5) mg/dL AST 43 H 45 H (14-36) U/L ALT 68 H 71 H (9-52) U/L Alkaline Phosphatase 289 H 284 H (38-126) U/L Total Protein 5.8 L 6.2 L (6.3-8.2) g/dL Albumin 3.0 L 3.2 L (3.5-5.0) g/dL Procalcitonin 2.80 H (0.02-0.09) ng/mL Microbiology - Last 24 Hours (Table) 01/11/19 20:05 Blood Culture - Preliminary Blood No Growth after 24 hours 01/09/19 16:07 Blood Culture - Preliminary Blood No Growth after 72 hours 01/12/19 11:30 Stool Culture - Preliminary Stool 01/11/19 03:45 CSF Gram Stain - Preliminary Cerebral Spinal Fluid CSF Culture - Preliminary
[2019-01-13] MEDS: ACETAMINOPHEN TAB 325 MG TAB PO PRN (14:58)
[2019-01-13] MEDS: MELATONIN 3 MG TABLET PO SCH (20:20)
--- NOTE | 2019-01-13 20:57 | PN ---
PROGRESS NOTE DATE OF SERVICE: 01/13/2019. REASON FOR FOLLOWUP: Fever, possible viral etiology. INTERVAL HISTORY: The patient is afebrile. The patient is currently feeling weak and tired and no energy. The patient is status post EGD this morning which did show evidence of mild gastritis and duodenitis, status post biopsy. The patient tolerated the procedure. Feeling slightly nauseated but no vomiting. No abdominal pain. Did have a small bowel movement or any stools. PHYSICAL EXAMINATION: Blood pressure is 131/59 with a pulse of 73, temperature 98.5. She is 97% on room air. General description is a middle aged female lying in bed in no distress. RESPIRATORY SYSTEM: Unlabored breathing. Clear to auscultation anteriorly. HEART: S1, S2. Regular rate and rhythm. ABDOMEN: Soft, no tenderness. LABS: Hemoglobin 11.5, white count 6.1 with a BUN of 9. Creatinine 0.92. Liver exam has been stable. No significant change from yesterday. DIAGNOSTIC IMPRESSION AND PLAN: Patient admitted to the hospital with fever, hypertension with concern initially for sepsis in this patient currently with no active focus of bacterial infection could have been a viral syndrome. With all the cultures negative, we will go ahead and discontinue her Levaquin as it may be the cause of some of her nausea symptom and monitor the patient closely off antibiotic therapy. Continue supportive care. MMKIMOL / WILLIAMN: [id number] /
[2019-01-14] MEDS: LEVOTHYROXINE 50 MCG TAB PO SCH (06:43)
[2019-01-14] MEDS: ACETAMINOPHEN TAB 325 MG TAB PO PRN (06:43)
[2019-01-14] MEDS: HEPARIN SODIUM,PORCINE 5,000 UNIT/ML 1 ML VIAL SQ SCH ×2 (07:37→16:58)
[2019-01-14] MEDS: PANTOPRAZOLE 40 MG TABLET PO SCH (07:37)
[2019-01-14] MEDS: LACTATED RINGERS 1,000 ML IV SCH (07:41)
[2019-01-14 10:27] LABS: Basophils % (A) 1 %; Eosinophils % (A) 0 %; HCT 38.1 % (34.0-46.0); HGB 11.7 gm/dL (11.4-16.0); Hypochromasia Slight; Lymphocytes # (A) 1.9 k/uL (1.0-4.8); Lymphocytes % (A) 24 %; MCH 25.3 pg (25.0-35.0); MCHC 30.7 g/dL (31.0-37.0); MCV 82.3 fL (80.0-100.0); Mean Platelet Volume 7.7; Monocytes # (A) 0.4 k/uL (0-1.0); Monocytes % (A) 5 %; Neutrophils # (A) 5.5 k/uL (1.3-7.7); Neutrophils % (A) 69 %; Platelet Count 236 k/uL (150-450); RBC 4.63 m/uL (3.80-5.40); RDW 15.5 % (11.5-15.5)
[2019-01-14 10:28] LABS: ALT 121 U/L (9-52); AST 118 U/L (14-36); Albumin 3.2 g/dL (3.5-5.0); Alkaline Phosphatase 360 U/L (38-126); Anion Gap 9 mmol/L; Blood Urea Nitrogen 9 mg/dL (7-17); Calcium 8.6 mg/dL (8.4-10.2); Carbon Dioxide 24 mmol/L (22-30); Chloride 104 mmol/L (98-107); Glucose 131 mg/dL (74-99); Potassium 3.6 mmol/L (3.5-5.1); Sodium 137 mmol/L (137-145); Total Bilirubin 0.5 mg/dL (0.2-1.3); Total Protein 6.2 g/dL (6.3-8.2)
--- NOTE | 2019-01-14 11:11 | P.PN ---
Subjective Progress Note Date: 01/14/19 Principal diagnosis: Abnormal CT fever Status post EGD for evaluation abnormal CT gastric thickening with findings of no masses in the area stomach seen on CT. Mild gastritis and duodenitis biopsies pending. Feels well. Afebrile. LFTs increased today AST 118. ALT 121. AP 360. Total bilirubin 0.5. Objective - Vital Signs Vital signs: Vital Signs Temp 98 F 01/14/19 06:00 Pulse 64 01/14/19 06:00 Resp 20 01/14/19 08:00 BP 116/66 01/14/19 06:00 Pulse Ox 99 01/14/19 06:00 Intake & Output 01/13/19 01/14/19 01/14/19 18:59 06:59 18:59 Intake Total 200 300 Output Total 800 Balance -600 300 Intake: IV 200 Oral 300 Output: Urine 800 Other: Voiding Method Toilet Toilet Toilet # Voids 1 - Exam General appearance: The patient is alert, oriented, in no acute distress. HET: Head is normocephalic and atraumatic. Pupils are equal and reactive. Oropharynx is clear without lesions. Neck: Supple without lymphadenopathy. Trachea midline. Heart: S1 S2. Regular rate and rhythm. Lungs: No crackles or wheezes are heard. Abdomen: Soft, nontender, nondistended with bowel sounds. No peritoneal signs. No palpable organomegaly or masses. Extremities: Normal skin color and turgor. No cyanosis, rash, ulceration, clubbing, or edema. Radial and pedal pulses are 2/4 bilaterally. Neurological: No focal deficits. Strength and sensation are grossly intact. - Labs CBC & Chem 7: 01/14/19 09:30 01/14/19 09:25 Labs: Abnormal Lab Results - Last 24 Hours (Table) 01/14/19 01/14/19 Range/Units 09:25 09:30 MCHC 30.7 L (31.0-37.0) g/dL Glucose 131 H (74-99) mg/dL AST 118 H (14-36) U/L ALT 121 H (9-52) U/L Alkaline Phosphatase 360 H (38-126) U/L Total Protein 6.2 L (6.3-8.2) g/dL Albumin 3.2 L (3.5-5.0) g/dL Microbiology - Last 24 Hours (Table) 01/11/19 03:45 CSF Gram Stain - Preliminary Cerebral Spinal Fluid CSF Culture - Preliminary 01/11/19 20:05 Blood Culture - Preliminary Blood No Growth after 48 hours 01/09/19 16:07 Blood Culture - Preliminary Blood No Growth after 96 hours Assessment and Plan (1) Gastric wall thickening Narrative/Plan: Status post EGD no evidence of abnormality gastritis duodenitis biopsies pending Current Visit: Yes Status: Acute Code(s): K31.89 - OTHER DISEASES OF STOMACH AND DUODENUM SNOMED Code(s): 75059174 (2) Fever Current Visit: Yes Status: Acute Code(s): R50.9 - FEVER, UNSPECIFIED SNOMED Code(s): 780530859 (3) Transaminitis Narrative/Plan: Transaminitis worsened today without abdominal pain or fever possible viral Current Visit: Yes Status: Acute Code(s): R74.0 - NONSPEC ELEV OF LEVELS OF TRANSAMNS & LACTIC ACID DEHYDRGNSE SNOMED Code(s): 990455530 Plan: 1. CMV testing. Daily CBC CMP. If LFTs continue to worsen recommend MRI liver. Continue with present medical therapy. We'll continue to follow. Assessment and plan a care discussed with Dr. Stauffer. Assessment and plan a care discussed with Dr. Stauffer
--- NOTE | 2019-01-14 11:58 | P.PN ---
Subjective Progress Note Date: 01/14/19 Principal diagnosis: Patient still feels weak and nauseated Underwent EGD today doesn't have any chest pain or abdominal pain or vomiting Constitutional: No acute distress, conversant, pleasant Eyes: Anicteric sclerae, moist conjunctiva, no lid-lag PERRLA ENMT: Neck: Supple, Lungs: Clear to auscultation Cardiovascular: Heart regular in rate and rhythm, No murmurs, gallops, or rubs No peripheral edema Abdominal: Soft Nontender, no guarding, Skin: Normal temperature, tone, texture, turgor No induration No subcutaneous nodules No rash, lesions No ulcers Extremities: No digital cyanosis no edema Psychiatric:Alert and oriented to person, place and time Appropriate affect Intact judgement Neuro: Generalized weakness Vital Signs - 8 hr 01/14/19 01/14/19 06:00 08:00 Temperature 98 F Pulse Rate [ 64 Pulse Oximetery ] Respiratory 20 20 Rate Blood Pressure 116/66 [Right Arm] O2 Sat by Pulse 99 Oximetry acute febrile illness likely viral with sepsis - off levophed, IVF completed - Overall the condition is improving that patient states that she still nauseated and weak ID following patient on Levaquin Transaminitis, - follow levels - liver US with hemangioma - hep panel negative, EBV negative Slight increase in the alkaline phosphatase Hypothyroidism - synthroid - check TSH JAMEY, resolved Sepsis, resolved Generalized weakness Persistent nausea Status post status post EGD Mild gastritis Possible discharge to patient in 1-2 days depends on clinical improvement of the nausea and weakness Objective - Vital Signs Vital signs: Vital Signs Temp 98 F 01/14/19 06:00 Pulse 64 01/14/19 06:00 Resp 20 01/14/19 08:00 BP 116/66 01/14/19 06:00 Pulse Ox 99 01/14/19 06:00 Intake & Output 01/13/19 01/14/19 01/14/19 18:59 06:59 18:59 Intake Total 200 300 Output Total 800 Balance -600 300 Intake: IV 200 Oral 300 Output: Urine 800 Other: Voiding Method Toilet Toilet Toilet # Voids 1 - Labs CBC & Chem 7: 01/14/19 09:30 01/14/19 09:25 Labs: Abnormal Lab Results - Last 24 Hours (Table) 02/22/19 02/22/19 Range/Units 09:25 09:30 MCHC 30.7 L (31.0-37.0) g/dL Glucose 131 H (74-99) mg/dL AST 118 H (14-36) U/L ALT 121 H (9-52) U/L Alkaline Phosphatase 360 H (38-126) U/L Total Protein 6.2 L (6.3-8.2) g/dL Albumin 3.2 L (3.5-5.0) g/dL Microbiology - Last 24 Hours (Table) 01/11/19 03:45 CSF Gram Stain - Preliminary Cerebral Spinal Fluid CSF Culture - Preliminary 01/11/19 20:05 Blood Culture - Preliminary Blood No Growth after 48 hours 01/09/19 16:07 Blood Culture - Preliminary Blood No Growth after 96 hours
[2019-01-14] MEDS ORDERED: traMADol 50 MG TAB PO PRN (14:46)
--- NOTE | 2019-01-14 18:39 | MR ---
MR scan of the brain. History fever. Septic shock. Headaches. Comparison none. Technique Multiplanar multiecho imaging of the brain was performed with no contrast. FINDINGS: There is mild cerebral cortical atrophy. There is no mass effect nor midline shift. There is no sign of intracranial hemorrhage. There is thinning of the corpus callosum. There is no evidence of cortica l infarct. The brainstem is intact. There is no evidence of posterior fossa mass. Sella turcica appea rs normal. There are scattered foci of increased signal at the castle-white matter junction of both cer ebral hemispheres. Total Number is approximately 5. These measure maximum 5 mm. There is mild mucosal thickening in the ethmoid sinus. IMPRESSION: Mild atrophy. Mild ethmoid sinusitis. There are a few scattered high signal white matter foci of uncertain significance.
[2019-01-14] MEDS: MELATONIN 3 MG TABLET PO SCH (20:24)
[2019-01-15] MEDS: HEPARIN SODIUM,PORCINE 5,000 UNIT/ML 1 ML VIAL SQ SCH ×3 (01:48→15:04)
[2019-01-15] MEDS: LEVOTHYROXINE 50 MCG TAB PO SCH (06:02)
--- NOTE | 2019-01-15 06:08 | PN ---
PROGRESS NOTE DATE OF SERVICE: 01/14/2019. REASON FOR FOLLOWUP: Fever, possible viral syndrome. INTERVAL HISTORY: The patient overall fever pattern has improved. No fever recorded in the last 3 days. The patient still complaining of feeling weak and tired, no energy. Some nausea but no vomiting. Did have some soft bowel movement. No chest pain, shortness of breath or cough. PHYSICAL EXAMINATION: Blood pressure 132/79 with a pulse of 77. Temperature 98. She is 99% on room air. General description is a middle aged female lying in bed in no distress. Respiratory system: Unlabored breathing. Clear to auscultation anteriorly. Heart S1, S2. Regular rate and rhythm. ABDOMEN: Soft. No tenderness. EXTREMITIES: No edema of the feet. LABS: Hemoglobin 11.7, white count 8.0, creatinine 0.81. Liver enzymes slightly worse from yesterday. Cultures has been negative. DIAGNOSTIC IMPRESSION AND PLAN: Patient admitted to the hospital with fever and hypertension and concern for sepsis in this patient currently with no evidence of any bacterial infection. All of her cultures have been negative. Did have slight worsening of liver enzymes that needs to be monitored closely. We will continue to hold on any systemic antibiotic therapy as clinical suspicion low for underlying bacterial infection. Continue supportive care. MMODL / IJN: [id number] /
[2019-01-15] MEDS: LACTATED RINGERS 1,000 ML IV SCH (07:40)
[2019-01-15] MEDS: PANTOPRAZOLE 40 MG TABLET PO SCH (07:41)
[2019-01-15 08:55] LABS: Basophils % (A) 0 %; Eosinophils % (A) 0 %; HGB 12.3 gm/dL (11.4-16.0); Hypochromasia Slight; Lymphocytes # (A) 2.1 k/uL (1.0-4.8); Lymphocytes % (A) 23 %; MCH 25.3 pg (25.0-35.0); MCHC 31.5 g/dL (31.0-37.0); MCV 80.4 fL (80.0-100.0); Mean Platelet Volume 6.7; Monocytes # (A) 0.4 k/uL (0-1.0); Monocytes % (A) 4 %; Neutrophils # (A) 6.3 k/uL (1.3-7.7); Neutrophils % (A) 70 %; Platelet Count 291 k/uL (150-450); RBC 4.85 m/uL (3.80-5.40); RDW 15.6 % (11.5-15.5)
[2019-01-15 09:04] LABS: ALT 194 U/L (9-52); AST 171 U/L (14-36); Albumin 3.4 g/dL (3.5-5.0); Alkaline Phosphatase 431 U/L (38-126); Anion Gap 9 mmol/L; Blood Urea Nitrogen 7 mg/dL (7-17); Carbon Dioxide 24 mmol/L (22-30); Chloride 107 mmol/L (98-107); Glucose 130 mg/dL (74-99); Sodium 140 mmol/L (137-145); Total Bilirubin 0.5 mg/dL (0.2-1.3); Total Protein 6.6 g/dL (6.3-8.2)
--- NOTE | 2019-01-15 12:02 | P.DS ---
Providers Date of admission: 01/09/19 19:28 Expected date of discharge: 01/15/19 Attending physician: Duglas Hernandez MD Consults: 01/09/19 19:29 Consult Physician Stat Consulting Provider: Nelly Campos Consult Reason/Comments: critical care Do you want consulting provider notified?: Yes Consult Physician Urgent Consulting Provider: Estrella Espinosa Consult Reason/Comments: fever, sepsis Do you want consulting provider notified?: Yes 01/10/19 14:24 Consult to Anesthesia Stat Consulting Provider: Anesthesia,Services Consult Reason/Comments: LP-- CSF 01/12/19 12:08 Consult Physician Routine Consulting Provider: Chris Stauffer Consult Reason/Comments: inflammation gastric antrum Do you want consulting provider notified?: Already Contacted Primary care physician: Luis Alberto Holly - Discharge Diagnosis(es) (1) Fever of unknown origin Current Visit: Yes Status: Acute (2) Viral sepsis Current Visit: Yes Status: Acute (3) Gastritis Current Visit: Yes Status: Acute (4) Transaminitis Current Visit: Yes Status: Acute Hospital Course: a 63-year-old female past medical history of hypothyroidism, arthritis, sleep apnea who presented to the ER with complaints of a fever and lethargy. She was recently getting worked up for a knee scope and was told she had staph in her nasal passages. She was therefore started on Bactrim. In the ER she underwent a Comprehensive evaluation. Her initial blood pressure was 91/ 55 and temperature was 102.4. Laboratory analysis revealed white blood cell count of 5.3, sodium 135, carbon dioxide 19, BUN 15, and creatinine 1.43. She was also found to have mildly elevated AST at 57 and ALT at 71 that trended up to 171/194 T bili was normal. She underwent a urinalysis which did not show any signs of UTI. Chest x-ray reviewed process. Gallbladder ultrasound showed possible liver hemangioma in the anterior left lobe but no signs of gallstones. Influenza nasal swab was negative. Despite IV fluid she remained hypotensive in the ER necessitating the use of levo. She was started on broad-spectrum antibiotics with Levaquin and Rocephin. She was therefore admitted to the ICU. Random cortisol level as well as hepatitis profiles were negative. She was able to be weaned off levo fed by the morning of 01/10. She underwent a lumbar puncture on 01/10 which was negative. Pro-calcitonin did come back elevated at 6.89. Her antibiotics were narrowed to Levaquin by infectious disease. She spiked fevers again on 01/[address] was ordered which showed some ileus and thinking of the gastric antrum. It also showed left renal atrophy, patient has a known history of this and a benign UA. GI was consulted for persistent nausea and EGD performed was consistent with mild gastritis the patient was started on Protonix. Patient also complained of ongoing headaches that was likely secondary to sinus congestion MRI of the head showed mild atrophy with mild ethmoid sinusitis with a few scattered white matter foci of uncertain significance. Patient was noted to have mildly worsening transaminitis and was recommended on discharge to follow-up to have CMP done and to subsequently have an MRI per GI recommendations if it continues to increase. Prescription for CMP to be done on Thursday. She was discharged home in stable condition with appropriate follow-up for labs and her PCP. This discharge process took approximately 35 minutes. Focused exam GI : Soft nontender nondistended normoactive bowel sounds all 4 quadrants Patient Condition at Discharge: Good Plan - Discharge Summary Discharge Rx Participant: Yes New Discharge Prescriptions: New Pantoprazole [Protonix] 40 mg PO DAILY #60 tablet. Continue Levothyroxine Sodium [Synthroid] 50 mcg PO DAILY Discontinued Sulfamethoxazole/Trimethoprim [Bactrim DS 800-160 mg] 1 tab PO BID Discharge Medication List Levothyroxine Sodium [Synthroid] 50 mcg PO DAILY 07/31/16 [History] Pantoprazole [Protonix] 40 mg PO DAILY #60 tablet. 01/15/19 [Rx] Follow up Appointment(s)/Referral(s): Luis Alberto Holly MD [Primary Care Provider] - 1-2 days Patient Instructions/Handouts: Gastritis (DC), Return to Work Instructions (DC) Activity/Diet/Wound Care/Special Instructions: Follow up with Dr. Holly to have CMP to monitor transaminitis Discharge/Stand Alone Forms: Work/School Release, Work/School Release / Restrict Discharge Disposition: HOME SELF-CARE
[2019-01-15 14:58] VITALS: BP 128/57; PULSE 75; RESP 16; TEMP 98.6
--- NOTE | 2019-01-16 05:32 | PN ---
PROGRESS NOTE DATE OF SERVICE: 01/15/2019. REASON FOR FOLLOWUP: Fever, likely viral syndrome. INTERVAL HISTORY: The patient was seen on rounds early this afternoon with the patient has been afebrile. The patient is breathing comfortably. Denies having any chest pain or shortness of breath or cough. No nausea, vomiting, or any diarrhea. PHYSICAL EXAMINATION: Blood pressure 128/57 with temperature 98.2. He is 92% on room air. General description is a middle aged female, lying in bed in no distress. Respiratory system: Unlabored breathing. Clear to auscultation anteriorly. Heart S1, S2. Regular rate and rhythm. Abdomen soft. No tenderness. LABS: Hemoglobin is 12.3, with a white count 9.8. BUN of 7, creatinine 0.77. Culture has been negative. DIAGNOSTIC IMPRESSION AND PLAN: Patient admitted to the hospital with a fever in this patient who did have elevated liver enzymes. The patient did have extensive workup and infection has been noticed and advised no antibiotic on discharge. Continue to monitor the patient closely. Continue supportive care. MMODL / IJN: [id number] /
== END 2019-01-15 17:16 | disposition home or self-care (01) | DRG 871 ==
LOC: EC 13:46 → 2SICU 19:28 → 4MS4W 01-11 17:58
PROVIDERS: ADMIT Internal Medicine; ATTEND Internal Medicine
PROC: 009U3ZX Drainage of Spinal Canal, Percutaneous Approach, Diagnostic (ICD-10-PCS; principal; 2019-01-11)
PROC: 0DB98ZX Excision of Duodenum, Via Natural or Artificial Opening Endoscopic, Diagnostic (ICD-10-PCS; 2019-01-13)
PROC: 0DB78ZX Excision of Stomach, Pylorus, Via Natural or Artificial Opening Endoscopic, Diagnostic (ICD-10-PCS; 2019-01-13)
DX: A41.89 Other specified sepsis (principal); R65.21 Severe sepsis with septic shock; E87.2 Acidosis; J98.11 Atelectasis; K56.7 Ileus, unspecified; N17.9 Acute kidney failure, unspecified; B97.89 Other viral agents as the cause of diseases classified elsewhere; D18.03 Hemangioma of intra-abdominal structures; E03.9 Hypothyroidism, unspecified; E86.0 Dehydration; G47.33 Obstructive sleep apnea (adult) (pediatric); G89.29 Other chronic pain; I10 Essential (primary) hypertension; J32.2 Chronic ethmoidal sinusitis; K29.70 Gastritis, unspecified, without bleeding; K29.80 Duodenitis without bleeding; K44.9 Diaphragmatic hernia without obstruction or gangrene; M35.3 Polymyalgia rheumatica; Z79.890 Hormone replacement therapy; Z80.9 Family history of malignant neoplasm, unspecified; Z87.891 Personal history of nicotine dependence; Z99.89 Dependence on other enabling machines and devices; Z79.899 Other long term (current) drug therapy
CPT/HCPCS: 36415; 36556; 43239; 70551; 71045; 71046; 74177; 76705; 80048; 80053; 80074; 81001; 82247; 82533; 82550; 82553; 82945; 83605; 83735; 84075; 84100; 84145; 84157; 84443; 84450; 84460; 84484; 85025; 85027; 86644; 86645; 86663; 86664; 86665; 87040; 87045; 87046; 87070; 87086; 87205; 87502; 88305; 89050; 96360; 96361; 96365; 99285

== ENCOUNTER → 2020-05-12 | Outpatient (CLI) | payer BC ==
--- NOTE | 2020-05-13 22:16 | CT ---
EXAMINATION TYPE: CT lumbar spine wo con DATE OF EXAM: 05/12/2020 COMPARISON: 01/12/2019 HISTORY: 64-year-old female low back pain, no injury TECHNIQUE: Contiguous axial scanning of the lumbar spine without IV contrast. Coronal and sagittal re constructions performed. CT DLP: 756.6 mGycm Automated exposure control for dose reduction was used. FINDINGS: Redemonstrated atrophic left kidney. Punctate nonobstructive 2 mm left lower pole renal calculus. Sim ilar mild urothelial thickening on the left. No prevertebral or paravertebral soft tissue abnormality . Vertebral body heights are preserved and alignment is maintained. Mild facet arthropathy lower lumbar spine. Moderate to severe degenerative disc disease at L5-S1 with loss of disc height and endplate sclerosis and irregularity along with a small amount of vacuum phenomenon at this level. Diffuse disc bulge with superimposed central posterior disc protrusion at L4-L5 impressing on the sissy tral thecal sac but not causing any significant spinal canal stenosis. On the left, changes result in moderate neuroforaminal narrowing at L5-LS 1 and mild at L3-L4 and L4- L5. On the right, changes result in mild neural foraminal narrowing L3-L4 and L5-S1, moderate at L4-L5. IMPRESSION: 1. MODERATE TO SEVERE DEGENERATIVE DISC DISEASE AT L5-S1. BULGING DISC AND SUPERIMPOSED CENTRAL DISC HERNIATION AT L4-L5 WITHOUT ANY SIGNIFICANT SPINAL CANAL STENOSIS. 2. MILD FACET ARTHROPATHY LOWER LUMBAR SPINE WITH VARIABLE MILD TO MODERATE NEUROFORAMINAL STENOSES I N THE LOWER LUMBAR SPINE OUTLINED ABOVE.
== END | disposition home or self-care (01) ==
LOC: RADCTMAIN 09:29
PROVIDERS: ATTEND Family Medicine
DX: M48.061 Spinal stenosis, lumbar region without neurogenic claudication (principal); M51.26 Other intervertebral disc displacement, lumbar region; M51.37 Other intervertebral disc degeneration, lumbosacral region; M51.86 Other intervertebral disc disorders, lumbar region; M47.816 Spondylosis without myelopathy or radiculopathy, lumbar region
CPT/HCPCS: 72131

== ENCOUNTER → 2020-07-18 | Outpatient (CLI) | payer BC ==
--- NOTE | 2020-07-19 10:10 | MM ---
Reason for exam: screening (asymptomatic). Physical Findings: A clinical breast exam by your physician is recommended on an annual basis and results should be correlated with mammographic findings. MG Screening Mammo w CAD Bilateral CC and MLO view(s) were taken. No prior studies available for comparison. The breast tissue is heterogeneously dense. This may lower the sensitivity of mammography. No discrete mass, suspicious calcification or other significant abnormality seen. ASSESSMENT: Negative, BI-RAD 1 RECOMMENDATION: Routine screening mammogram of both breasts in 1 year. Patient should continue monthly self breast exams. A negative report should not preclude additional follow up of suspicious palpable abnormalities.
== END | disposition home or self-care (01) ==
LOC: RADMAMWWP 16:03
PROVIDERS: ATTEND Family Medicine
DX: Z12.31 Encounter for screening mammogram for malignant neoplasm of breast (principal)
CPT/HCPCS: 77067

== ENCOUNTER 2021-07-25 08:18 | Emergency (ER) | payer OTHER ==
[2021-07-25 08:28] VITALS: RESP 18; TEMP 98.1
[2021-07-25] MEDS ORDERED: HYDROcodone/APAP 5-325MG 1 EACH TAB PO STA (08:39)
--- NOTE | 2021-07-25 09:21 | XR ---
Left ankle HISTORY: Trauma and pain 3 views the left ankle There is soft tissue swelling present. Small ossific density distal to the medial malleolus is though t to be well-corticated and not likely acute. Alignment is maintained. Bone mineralization is reduced . There is a plantar calcaneal spur. IMPRESSION: Soft tissue swelling.
--- NOTE | 2021-07-25 09:25 | XR ---
Right knee HISTORY: Trauma and pain 3 views of the right knee There is osteoarthritic change, loss of joint space is greatest in the lateral compartment. There is a large effusion with some anterior displacement of the patella. Patella may be somewhat high riding. Bone mineralization is reduced. IMPRESSION: Large effusion. No evident fracture. Correlate for possible tendon disruption, knee MRI m ay be of benefit. Osteoarthritis.
--- NOTE | 2021-07-25 09:55 | ED ---
Lower Extremity Injury HPI - General Chief Complaint: Extremity Injury, Lower Stated Complaint: Knee pain Time Seen by Provider: 07/25/21 08:33 Source: patient, RN notes reviewed Mode of arrival: wheelchair Limitations: no limitations - History of Present Illness Initial Comments: Patient is a 65-year-old female that presents to emergency department com plaining of left ankle and right knee pain. She notes she was walking off her steps on her deck when she stepped in a hole with her left ankle irritating. She notes that in December she did break her left ankle. She notes that since she stepped in the hole she's been favoring her left ankle and putting more weight on her right leg. She notes that since this happened approximately 2 weeks ago her right knee is become sore and swollen. She notes that she's been trying to wear compression sleeve. She notes that she is unable to take a lot of Motrin due to only having one kidney. She denied any injury or trauma to the right knee. She is otherwise a well-appearing 85-year-old female no apparent distress or pain. She denied any chest pain short of breath headache nausea vomiting diarrhea constipation fever fatigue chills. - Related Data Home Medications Medication Instructions Recorded Confirmed Levothyroxine Sodium [Synthroid] 50 mcg PO DAILY 07/31/16 01/09/19 Previous Rx's Medication Instructions Recorded Pantoprazole [Protonix] 40 mg PO DAILY #60 tablet. 01/15/19 Allergies Allergy/AdvReac Type Severity Reaction Status Date / Time No Known Allergies Allergy Verified 07/25/21 08:25 Review of Systems ROS Statement: Those systems with pertinent positive or pertinent negative responses have been documented in the HPI. ROS Other: All systems not noted in ROS Statement are negative. Past Medical History Past Medical History: Osteoarthritis (OA), Sleep Apnea/CPAP/BIPAP, Thyroid Disorder History of Any Multi-Drug Resistant Organisms: None Reported Past Surgical History: Section Additional Past Surgical History / Comment(s): B knee arthroscopy Past Anesthesia/Blood Transfusion Reactions: No Reported Reaction Past Psychological History: No Psychological Hx Reported Smoking Status: Former smoker Past Alcohol Use History: Occasional Past Drug Use History: None Reported - Past Family History Sister(s) Family Medical History: Cancer Father Family Medical History: Pulmonary Embolus Brother(s) Family Medical History: Pulmonary Embolus Mother Family Medical History: Deep Vein Thrombosis (DVT) General Exam Limitations: no limitations General appearance: alert, in no apparent distress Head exam: Present: atraumatic, normocephalic, normal inspection Eye exam: Present: normal appearance, PERRL, EOMI. Absent: scleral icterus, conjunctival injection, periorbital swelling Neck exam: Present: normal inspection Respiratory exam: Present: normal lung sounds bilaterally. Absent: respiratory distress, wheezes, rales, rhonchi, stridor Cardiovascular Exam: Present: regular rate, normal rhythm, normal heart sounds. Absent: systolic murmur, diastolic murmur, rubs, gallop, clicks GI/Abdominal exam: Present: soft, normal bowel sounds. Absent: distended, tenderness, guarding, rebound, rigid Left Ankle exam: Present: normal inspection, full ROM, swelling (Minimal). Absent: tenderness, abrasion, laceration, ecchymosis, deformity Right Knee exam: Present: full ROM, tenderness (Generalized), swelling, effusion (Moderate to large size.). Absent: normal inspection, abrasion, laceration, ecchymosis, deformity, crepitus, dislocation Neurological exam: Present: alert, oriented X3 Psychiatric exam: Present: normal affect, normal mood Skin exam: Present: warm, dry, intact, normal color. Absent: rash Course Vital Signs 07/25/21 08:25 Temperature 98.1 F Pulse Rate 72 Respiratory 18 Rate Blood Pressure 156/70 O2 Sat by Pulse 98 Oximetry Medical Decision Making - Medical Decision Making 65-year-old female complaining of left ankle and right knee pain after stepping off of her deck into a hole. X-rays of the right knee and left ankle, Ona 5 ordered for pain. X-ray negative for any acute fractures dislocations shows a large right knee joint effusion and some left ankle soft tissue swelling. Knee immobilizer ordered. Case discussed with Dr. Bernard, patient can discharge home with follow-up to orthopedics. - Radiology Data Radiology results: report reviewed, image reviewed Right knee x-ray: Large effusion. No evidence of fracture. Correlate for possible tendon disruption near MRI may be of benefit. Osteoarthritis. Left ankle x-ray: Soft tissue swelling. Disposition Clinical Impression: Effusion, right knee, Left ankle pain, Right knee pain Disposition: HOME SELF-CARE Condition: Stable Instructions (If sedation given, give patient instructions): Knee Pain (ED) Additional Instructions: Please return to the Emergency Department if symptoms worsen or any other concerns. Follow with orthopedics in the next 1-2 days. Wear knee immobilizer. Continue to wear compression sleeve as needed. Take Motrin as needed. Is patient prescribed a controlled substance at d/c from ED?: No Referrals: Luis Alberto Holly MD [Primary Care Provider] - 1-2 days Jerry Luke MD [STAFF PHYSICIAN] - 1-2 days Time of Disposition: 10:01
[2021-07-25 11:30] VITALS: BP 152/91; PULSE 64
== END 2021-07-25 11:35 | disposition home or self-care (01) ==
LOC: EC 08:18
DX: M25.461 Effusion, right knee (principal); M25.572 Pain in left ankle and joints of left foot; E07.9 Disorder of thyroid, unspecified; Z87.891 Personal history of nicotine dependence; Z79.890 Hormone replacement therapy; W10.8XXA Fall (on) (from) other stairs and steps, initial encounter; Y92.009 Unspecified place in unspecified non-institutional (private) residence as the place of occurrence of the external cause
CPT/HCPCS: 73562; 73610; 99283; L1830

== ENCOUNTER → 2021-10-28 | Outpatient (CLI) | payer OTHER ==
[2021-10-28 14:03] LABS: HCT 43.4 % (34.0-46.0); HGB 14.9 gm/dL (11.4-16.0); MCHC 34.4 g/dL (31.0-37.0); MCV 87.3 fL (80.0-100.0); Mean Platelet Volume 7.8; Platelet Count 321 k/uL (150-450); RBC 4.97 m/uL (3.80-5.40); RDW 13.9 % (11.5-15.5); WBC 9.3 k/uL (3.8-10.6)
[2021-10-28 14:11] LABS: Albumin 4.6 g/dL (3.5-5.0); Calcium 9.8 mg/dL (8.4-10.2); Potassium 4.6 mmol/L (3.5-5.1); Total Bilirubin 0.5 mg/dL (0.2-1.3); Total Protein 7.8 g/dL (6.3-8.2)
[2021-10-28 14:20] LABS: Appearance,Urine Cloudy (Clear); Bacteria,Urine Occasional /hpf; Bilirubin,Urine Negative (Negative); Blood,Urine Trace (Negative); Color,Urine Yellow; Glucose,Urine (UA) Negative (Negative); Ketones,Urine Negative (Negative); Leukocyte Esterase,Urine Large (Negative); Mucus,Urine Rare /hpf; Nitrite,Urine Negative (Negative); PH, Urine 5.5 (5.0-8.0); Protein,Urine Negative (Negative); RBC,Urine 21 /hpf (0-5); Specific Gravity,Urine 1.014 (1.001-1.035); Squamous Epithelial Cell,Urine 2 /hpf (0-4); Urobilinogen,Urine <2.0 mg/dL (<2.0); WBC,Urine >182 /hpf (0-5)
[2021-10-28 15:07] LABS: Partial Thromboplastin Time 23.9 sec (22.0-30.0); Prothrombin Time 10.5 sec (9.0-12.0)
== END | disposition home or self-care (01) ==
LOC: LABPAT 12:30
PROVIDERS: ATTEND Orthopaedic Surgery
DX: Z01.812 Encounter for preprocedural laboratory examination (principal); M17.11 Unilateral primary osteoarthritis, right knee
CPT/HCPCS: 36415; 80053; 81001; 85027; 85610; 85730; 87070; 93005

== ENCOUNTER 2021-11-12 05:33 | Day surgery (SDC) | payer OTHER ==
[2021-11-08 11:14] VITALS: BMI 28.3
[~2021-11-12 05:33] MED LIST: ACETAMINOPHEN TAB 500 MG TAB PO PRN; GABAPENTIN 300 MG CAP PO PRN; MELOXICAM 7.5 MG TAB PO PRN; TRANEXAMIC ACID 1,000 MG in SODIUM CHLORIDE 0.9% 100 ML IVPB PRN
[2021-11-12] MEDS ORDERED: LIDOCAINE 1% (10MG/ML) FOR IV START INTRADERMA PRN (05:42)
[2021-11-12] MEDS ORDERED: LACTATED RINGERS 1,000 ML IV ONE ×2 (06:14→10:09)
[2021-11-12] MEDS ORDERED: ONDANSETRON 4 MG/2 ML VIAL ONE (06:20)
[2021-11-12] MEDS ORDERED: fentaNYL (PF) 50 MCG/ML 5 ML AMP IVP ONE (06:30)
[2021-11-12] MEDS ORDERED: MIDAZOLAM 2 MG/2 ML VIAL IVP ONE (06:30)
[2021-11-12] MEDS ORDERED: DEXAMETHASONE SOD PHOSPHATE 4 MG/ML 1 ML VIAL IVP ONE (06:58)
[2021-11-12] MEDS ORDERED: MELOXICAM 7.5 MG TAB PO ONE (06:58)
[2021-11-12] MEDS ORDERED: ceFAZolin 1,000 MG in SODIUM CHLORIDE 0.9% 1,000 ML IRRIGATION ONE (07:00)
[2021-11-12] MEDS ORDERED: HYDROmorphone 0.2 MG/1 ML SYRINGE IVP PRN (07:01)
[2021-11-12] MEDS ORDERED: HYDROmorphone 1 MG/ML 1 ML SYRINGE IVP PRN (07:01)
[2021-11-12] MEDS ORDERED: NALOXONE 0.4 MG/ML 1 ML VIAL IV PRN ×2 (07:01→15:32)
[2021-11-12] MEDS ORDERED: ONDANSETRON 4 MG/2 ML VIAL IVP PRN (07:01)
[2021-11-12] MEDS ORDERED: HYDROmorphone 0.5 MG/0.5 ML SYRINGE IVP PRN (07:01)
[2021-11-12] MEDS ORDERED: HYDROcodone/APAP 7.5-325MG 1 EACH TAB PO PRN (07:02)
--- NOTE | 2021-11-12 07:32 | P.ANPRN ---
Procedure Note - Anesthesia - Nerve Block Performed Right Adductor Canal Infusion Time Out Performed: Yes Date of Procedure: 11/12/21 Procedure Start Time: : Procedure Stop Time: 06:36 Location of Patient: PreOp Indication: Requested by Surgeon Specifically requested for management of pain by DrJayme: eJff Prajapati Sedation Type: Sedate with meaningful contact maintained Preparation: Sterile Prep, Sterile Dressing Position: Supine Catheter: Indwelling Needle Types: Pajunk Needle Gauge: 18 Ultrasound used to visualize needle placement: Yes Ultrasound used to observe medication spread: Yes Injectate: 0.5% Ropivacaine (see comment for volume) (15 ml plus 15 ml 0.9%Ns) Blood Aspirated: No Pain Paresthesia on Injection Noted: No Resistance on Injection: Normal Image Stored and Saved: Yes Events: Uneventful and Well Tolerated
[2021-11-12] MEDS ORDERED: ROPIVACAINE 0.2%-NS ON-Q PUMP 1,090 MG, EMPTY PAIN BALL 1 EACH MISCELLANE PRN (07:34)
--- NOTE | 2021-11-12 07:34 | P.ANPRN ---
Procedure Note - Anesthesia - Nerve Block Performed Right iPack Single Time Out Performed: Yes Date of Procedure: 11/12/21 Procedure Start Time: 06:37 Procedure Stop Time: 06:42 Location of Patient: PreOp Indication: Requested by Surgeon Specifically requested for management of pain by DrJayme: Jeff Prajapati Sedation Type: Sedate with meaningful contact maintained Preparation: Sterile Prep Position: Left Lateral Needle Types: Pajunk Needle Gauge: 21 Ultrasound used to visualize needle placement: Yes Ultrasound used to observe medication spread: Yes Injectate: 0.5% Ropivacaine (see comment for volume) (15 ml plus 15 ml 0.9 %NS +4 mg Dxamethason) Blood Aspirated: No Pain Paresthesia on Injection Noted: No Resistance on Injection: Normal Image Stored and Saved: Yes Events: Uneventful and Well Tolerated
--- NOTE | 2021-11-12 08:19 | P.OP ---
Date of Procedure: 11/12/21 Preoperative Diagnosis: Severe Osteoarthritis right knee Postoperative Diagnosis: Severe osteoarthritis right knee Procedure(s) Performed: right total knee arthroplasty Implants: & Nephew Journey II CR Oxinium cruciate retaining femoral component size 5, right & Nephew Journey nonporous tibial baseplate size 3, right & Nephew Journey II, XLPE CR articular insert, size 11 mm, Size 3-4, right & Nephew Journey Arti II resurfacing patellar component, oval, 32 mm All components were cemented using Palacos R bone cement The articulation is Oxinium on polyethylene Anesthesia: GETA Surgeon: Jeff Prajapati Station Mechanic Apprentice #1: Rafaela Ervin Estimated Blood Loss (ml): 50 Pathology: other (Bone and cartilage) Condition: stable Disposition: PACU Indications for Procedure: After failure of conservative treatment we discussed the surgical and nonsurgical treatment options at length. Patient wishes to proceed with a total knee arthroplasty. Complications specific to this procedure were discussed at length, including but not limited to infection, bleeding, stiffness, and nerve injury. Covid-19 was also discussed at length with the patient, and they are aware of the current policies and procedures. The patient was given the option of delaying surgery, but they elect to proceed knowing these risks. Patient is aware of all these complications and informed consent was obtained Operative Findings: The operative findings are consistent with severe osteoarthritis of the right knee Description of Procedure: Patient was seen in the preoperative area and the consent was reviewed and the operative site was marked with a skin marker. The patient verified the procedure and the operative site. An adductor canal pain catheter and an iPACK block was placed by anesthesia in the preoperative area. The patient was then brought to the operating room and given preoperative antibiotics intravenously. A gram of transexamic acid was given intravenously. A spinal anesthetic was administered by the anesthesia department. A tourniquet was placed on the upper thigh and the lower extremity was prepped with chlorhexidine and draped in usual sterile fashion. A universal timeout was then performed which confirmed the patient's name, surgical site, ALLERGIES, and consent. The lower extremity was then exsanguinated and tourniquet was inflated to 250 mmHg. A standard anterior midline approach to the knee was performed. The skin and subcutaneous tissue were sharply dissected down to the patellar tendon. A medial parapatellar arthrotomy was then performed. The knee was then extended, the patellar was everted, and the knee was again flexed. The infra-patellar fat pad was removed in order to enhance exposure. The anterior horns of both menisci were excised, and a release was performed to the posterior medial aspect of the knee. On gross visual inspection, there was complete loss of articular cartilage in the medial and patellofemoral joint spaces. There was also significant cartilage damage in the lateral compartment. There were multiple periarticular osteophytes globally about the knee which were then removed with a Ronguer. The femoral canal was then opened with the 9.5 mm intramedullary drill. The 8 mm intramedullary sea was then inserted into the femoral canal with the distal femoral cutting guide set for 5 of valgus. The distal femoral cutting block was then pinned in place. The intramedullary sea was then removed, and the distal femur was then cut. The cutting block was then removed and the cut was checked for symmetry. The resected bone was then measured to confirm the appropriate distal femoral resection. Next, the sizing guide was then placed and set for 3 external rotation based off of the epicondylar axis and Whitesides line. Pins were then placed and the drill holes, and the femur was sized with the sizing stylus. The pins were then removed, and the sizing guide was then removed. The spikes of the femoral block was then placed into the predrilled holes, and malleted into place. Two 45 mm pins were then placed into the fixation holes on the cutting block. An carlton wing was then used to ensure there would be no notching with the anterior cut. The anterior condyles were cut without notching. The anterior chord cut was then performed, followed by the posterior cut, posterior chamfer cut, and the anterior chamfer cut. The collateral ligaments were protected during the entire process. The cutting block was then removed. Any remaining bone and osteophytes were removed from the femur with a Rominger. The femoral canal was plugged with autologous bone. Attention was then directed to the tibia. The remaining ACL was removed with a Ronguer, and the tibia was then gently subluxed forward with a large bent knee retractor. Any remaining menisci were excised. The posterior lateral corner was cauterized in order to coagulate the lateral geniculate artery. The extra medullary tibial cutting guide was then placed, set for the appropriate rotation, slope, and depth of resection. The proximal tibia cutting guide was then pinned in place. Proximal tibia was then cut and sized. The femoral trial was placed. A narrow saw blade was then used to remove the anterior intracondylar femoral bone. The CR notch trial was then placed. The tibial trial was placed with the appropriate-sized insert. The knee was able to fully extend and flex to 130 and was stable throughout all range of motion. The knee was then extended and the patella was everted. Patella was then measured, and then using an osteotomy guide, the patella was cut at the appropriate level. The patella was then measured and drilled and the patella trial was then placed. The knee was then taken through range of motion with the patella trial and the patella tracked normally using the no thumbs technique.. The knee was then extended patella trial was then removed and the patella was everted. Knee was then flexed and lug holes were drilled through the femoral trial and the femoral trial was then removed. The tibial was then re-exposed, and the tibial broach guide was then pinned in place after it was set for the appropriate rotation to allow for the most coverage without overhang. The tibia was then reamed and broached. The cut surfaces of bone were then irrigated with pulsatile lavage. The knee was also irrigated with Irrisept solution. The components were then opened, the cement was mixed, and the components were then cemented in place. The cement was allowed to harden with the knee in full extension. After the cemented hardened. The tourniquet was released, and hemostasis was obtained. A second gram of transexamic acid was given intravenously. The knee was again irrigated. The knee was again taken through range of motion and found to be stable throughout all range of motion of 0-130, and the patella tracked normally. The fascia was then closed with 0 Vicryl followed by #2 strata fix suture. The subcutaneous tissue was closed with 3-0 Vicryl and 3-0 strata fix. Exofin glue was used for the skin and placed with the knee in flexion. After the glue had dried, and Optafoam silver impregnated dressing was applied. The patient was then transferred to recovery room in stable condition. The assistant community manager JACQUELINE Gerardo was required due the complexity surgery and the need for a skilled educational assistant teacher. She assisted in positioning, draping, retraction, and closure of the wound.
--- NOTE | 2021-11-12 09:05 | XR ---
EXAMINATION TYPE: XR knee limited RT DATE OF EXAM: 11/12/2021 COMPARISON: NONE TECHNIQUE: Two views submitted HISTORY: Post op FINDINGS: There is a prosthetic knee in near anatomic alignment. There is soft tissue edema and emphysema. IMPRESSION: 1. Postoperative change. Appears in near-anatomic alignment
[2021-11-12] MEDS: ONDANSETRON 4 MG/2 ML VIAL IVP ONE ×2 (09:56→20:32)
[2021-11-12] MEDS ORDERED: diphenhydrAMINE 50 MG/ML 1 ML VIAL ONE (11:07)
[2021-11-12] MEDS ORDERED: diphenhydrAMINE 50 MG/ML 1 ML VIAL IVP ONE (11:10)
[2021-11-12] MEDS: HYDROcodone/APAP 7.5-325MG 1 EACH TAB PO PRN ×2 (11:54→21:38)
[2021-11-12] MEDS ORDERED: NA PHOS,M-B/NA PHOS,DI-BA 133 ML ENEMA RECTAL PRN (15:32)
[2021-11-12] MEDS ORDERED: bisacodyL 10 MG SUPP RECTAL PRN (15:32)
[2021-11-12] MEDS ORDERED: MAGNESIUM HYDROXIDE 2,400 MG/10 ML CUP PO PRN (15:32)
[2021-11-12] MEDS: LACTATED RINGERS 1,000 ML IV SCH ×2 (15:46→21:39)
[2021-11-12] MEDS: SODIUM CHLORIDE 0.9% 1,000 ML IV SCH ×2 (20:32→21:39)
[2021-11-12] MEDS ORDERED: SENNOSIDES-DOCUSATE SODIUM 1 EACH TAB PO SCH (21:00)
[2021-11-12] MEDS: ASPIRIN 325 MG TAB PO SCH (21:39)
--- NOTE | 2021-11-12 22:24 | P.CONS ---
History of Present Illness - Reason for Consult Consult date: 11/12/21 - History of Present Illness The patient is a 66-year-old female with a PMH of hyper thyroidism who was admitted for elective right total knee replacement which she underwent earlier today without any immediate postoperative palpitations. The patient was seen on the surgical unit postoperatively. She reported excellent control of her pain, currently at a 0 out of 10 at rest. She denied any additional complaints. She denied experiencing sore throat, chest pain, shortness of breath, nausea, vomiting, fever, chills, abdominal pain. She reports compliance with her home levothyroxine. She has not gotten out of bed since her surgery and has not passed urine or had a bowel movement. Review of systems: Pertinent positives and negatives as discussed in HPI, a complete review of systems was performed and all other systems are negative. Physical examination: General: non toxic, no distress, appears at stated age, overweight Derm: no unusual rashes/lesions no unusual ecchymoses, warm, dry Head: atraumatic, normocephalic, symmetric Eyes: EOMI, no lid lag, anicteric sclera, pupils equal round reactive to light ENT: Nose and ears atraumatic, no thrush, no pharyngeal erythema Neck: No thyromegaly, no cervical lymphadenopathy, trachea midline, supple Mouth: no lip lesion, mucus membranes moist Cardiovascular: S1S2 reg, no murmur, positive posterior tibial pulse bilateral, no edema, capillary refill less than 2 seconds Lungs: CTA bilateral, no rhonchi, no rales , no accessory muscle use Abdominal: soft, nontender to palpation, no guarding, no appreciable organomegaly, normal bowel sounds Ext: no gross muscle atrophy, muscle strength 5 out of 5 in all 4 extremities grossly except right lower extremity postoperatively, no contractures, right knee Lam bandage in place Neuro: CN II-XI grossly intact, light touch intact all 4 extremities, finger to nose within normal limits, Psych: Alert, oriented, appropriate affect Assessment/plan Chronic conditions: Hypothyroidism -Continue with home meds Status post right total knee replacement -Defer management including pain control to the surgery service We appreciate this opportunity to be involved in this patient's care. We will follow the patient with you. For any further questions, please not hesitate to contact the sound inpatient team. Past Medical History Past Medical History: Osteoarthritis (OA), Sleep Apnea/CPAP/BIPAP, Thyroid Disorder Additional Past Medical History / Comment(s): MTHFR gene. Not using cpap. History of Any Multi-Drug Resistant Organisms: None Reported Past Surgical History: Section, Orthopedic Surgery Additional Past Surgical History / Comment(s): Bilat knee arthroscopy Past Anesthesia/Blood Transfusion Reactions: No Reported Reaction Past Psychological History: No Psychological Hx Reported Smoking Status: Former smoker Past Alcohol Use History: Occasional Additional Past Alcohol Use History / Comment(s): quit smoking 2012, smoked for 40 yrs, <1PPD Past Drug Use History: None Reported - Past Family History Sister(s) Family Medical History: Cancer Additional Family Medical History / Comment(s): breast cancer Father Family Medical History: Pulmonary Embolus Brother(s) Family Medical History: Pulmonary Embolus Mother Family Medical History: Deep Vein Thrombosis (DVT) Medications and Allergies Home Medications Medication Instructions Recorded Confirmed Type Levothyroxine Sodium [Synthroid] 50 mcg PO DAILY 07/31/16 11/12/21 History Aspirin 325 mg PO BID #60 tab 11/12/21 Rx HYDROcodone/APAP 7.5-325MG [[place] 1 - 2 tab PO Q6H PRN #32 tab 11/12/21 Rx 7.5-325] Ondansetron Odt [Zofran Odt] 1 tab PO Q8HR PRN #10 tab 11/12/21 Rx Sennosides [Senokot] 2 tab PO DAILY PRN #60 tablet 11/12/21 Rx Allergies Allergy/AdvReac Type Severity Reaction Status Date / Time No Known Allergies Allergy Verified 11/08/21 10:47 Physical Exam Vitals: Vital Signs Temp Pulse Pulse Pulse Resp BP BP 11/12/21 20:00 97.8 F 70 20 161/77 11/12/21 16:45 61 18 11/12/21 15:30 61 16 11/12/21 14:30 62 16 11/12/21 13:40 79 16 11/12/21 12:52 78 16 11/12/21 12:22 74 16 11/12/21 11:53 56 L 16 11/12/21 11:37 53 L 16 11/12/21 11:22 65 16 11/12/21 11:07 71 16 11/12/21 10:52 72 16 11/12/21 10:46 57 L 16 148/68 11/12/21 10:31 54 L 16 163/72 11/12/21 10:16 54 L 16 146/67 11/12/21 10:01 56 L 16 148/67 11/12/21 09:45 61 16 153/67 11/12/21 09:30 61 16 162/72 11/12/21 09:16 70 16 174/76 11/12/21 09:01 67 16 169/74 11/12/21 08:46 72 16 186/95 11/12/21 08:34 96.9 F L 92 14 152/79 11/12/21 06:00 97.8 F 69 16 168/81 BP Pulse Ox 11/12/21 20:00 96 11/12/21 16:45 130/74 95 11/12/21 15:30 137/76 91 L 11/12/21 14:30 122/77 99 11/12/21 13:40 145/72 97 11/12/21 12:52 115/71 97 11/12/21 12:22 115/74 100 11/12/21 11:53 129/71 98 11/12/21 11:37 122/71 97 11/12/21 11:22 120/74 94 L 11/12/21 11:07 131/80 99 11/12/21 10:52 149/76 94 L 11/12/21 10:46 100 11/12/21 10:31 100 11/12/21 10:16 100 11/12/21 10:01 94 L 11/12/21 09:45 95 11/12/21 09:30 100 11/12/21 09:16 100 11/12/21 09:01 100 11/12/21 08:46 100 11/12/21 08:34 100 11/12/21 06:00 99 Intake and Output 11/12/21 11/12/21 11/12/21 06:59 14:59 22:59 Intake Total 200 1776 100 Output Total 50 Balance 200 1726 100 Intake: IV 200 1776 100 Output: Estimated Blood Loss 50 Other: Weight 75.3 kg 75.3 kg
[2021-11-13] MEDS: LACTATED RINGERS 1,000 ML IV SCH (05:43)
[2021-11-13] MEDS: LEVOTHYROXINE 50 MCG TAB PO SCH ×2 (05:44→08:01)
[2021-11-13] MEDS ORDERED: LEVOTHYROXINE 50 MCG TAB PO SCH (06:30)
[2021-11-13 07:50] VITALS: RESP 16
[2021-11-13] MEDS: HYDROcodone/APAP 7.5-325MG 1 EACH TAB PO PRN ×2 (07:57→14:26)
[2021-11-13] MEDS: ASPIRIN 325 MG TAB PO SCH (08:27)
--- NOTE | 2021-11-13 10:26 | P.PN ---
Progress Note - Text Progress Note Date: 11/13/21 Patient seen and examined at bedside POD 1 s/p total knee replacement with adductor canal catheter and Ipack block. Patient is sitting up and reports minimal pain. She feels numbness circumferentially. She is experiencing foot drop on the operative side. When her numbness behind the knee starts to wear off, her foot drop should improve. She does have movement of her toes and acceptable motor function above her knee. Adductor canal catheter site is clean and dry without erythema. Continue pain pump at current rate. Patient denies HYLTON, F/C, parathesias, N/V. Patient is acceptable for discharge when primary team allows. Will continue to follow.
[2021-11-13 10:52] LABS: Basophils # (A) 0.01 X 10*3/uL (0.00-0.10); Basophils % (A) 0.1 %; Eosinophils # (A) 0 X 10*3/uL (0.04-0.35); Eosinophils % (A) 0 %; HGB 11.9 g/dL (12.0-15.0); Lymphocytes # (A) 1.13 X 10*3/uL (0.90-5.00); Lymphocytes % (A) 9.5 %; MCH 28.4 pg (27.0-32.0); MCHC 31.3 g/dL (32.0-37.0); MCV 90.7 fL (80.0-97.0); Mean Platelet Volume 10.7 fL (9.5-12.2); Monocytes % (A) 5.9 %; Neutrophils # (A) 9.96 X 10*3/uL (1.80-7.70); Neutrophils % (A) 84.2 %; Platelet Count 268 X 10*3/uL (140-440); RBC 4.19 X 10*6/uL (4.10-5.20); RDW 13.3 % (11.5-14.5); WBC 11.84 X 10*3/uL (4.50-10.00)
--- NOTE | 2021-11-13 11:24 | P.DS ---
Providers Expected date of discharge: 11/13/21 Attending physician: Jeff Prajapati Consults: 11/12/21 15:32 Consult Physician Routine Consulting Provider: Milly Leon Consult Reason/Comments: medical management Do you want consulting provider notified?: Yes Primary care physician: Luis Alberto Holly - Discharge Diagnosis(es) (1) Osteoarthritis of right knee Current Visit: Yes Status: Acute (2) Status post total right knee replacement Current Visit: Yes Status: Acute Hospital Course: This is a 66 year-old female with history of degenerative arthritis of the right knee. The patient has failed conservative outpatient treatment and [facility]. The patient is evaluated by the primary care physician and cleared for surgery. The patient is admitted to [facility] on 11/12/2021 for total right knee arthroplasty. The procedure is performed without complication or sequelae. She did develop a foot drop most likely secondary to the pain block. We are awaiting evaluation by anesthesia prior to discharge. The patient is otherwise doing well postoperatively. Vital signs and labs are stable. The patient is discharged to home today in good condition. Please see med rec for accurate list of home medications. Patient Condition at Discharge: Good Plan - Discharge Summary Discharge Rx Participant: No New Discharge Prescriptions: New HYDROcodone/APAP 7.5-325MG [[place] 7.5-325] 1 - 2 tab PO Q6H PRN #32 tab PRN Reason: Pain Sennosides [Senokot] 2 tab PO DAILY PRN #60 tablet PRN Reason: Constipation Ondansetron Odt [Zofran Odt] 1 tab PO Q8HR PRN #10 tab PRN Reason: Nausea Aspirin 325 mg PO BID #60 tab No Action Levothyroxine Sodium [Synthroid] 50 mcg PO DAILY Discharge Medication List Levothyroxine Sodium [Synthroid] 50 mcg PO DAILY 07/31/16 [History] Aspirin 325 mg PO BID #60 tab 11/12/21 [Rx] HYDROcodone/APAP 7.5-325MG [[place] 7.5-325] 1 - 2 tab PO Q6H PRN #32 tab 11/12/21 [Rx] Ondansetron Odt [Zofran Odt] 1 tab PO Q8HR PRN #10 tab 11/12/21 [Rx] Sennosides [Senokot] 2 tab PO DAILY PRN #60 tablet 11/12/21 [Rx] Follow up Appointment(s)/Referral(s): Luis Alberto Holly MD [Primary Care Provider] - 1 Week (Office not answering. Left message for them to call you on 11/13/2021 at 10:50 a.m.) [facility], [NON-STAFF] - ([facility] will call you to schedule your in home physical therapy visits.) Jeff Prajapati DO [Doctor of Osteopathic Medicine] - 11/27/21 10:45 am Douglas Connolly [NON-STAFF] - (*Please call [facility] once home to arrange delivery of the Continous Passive Motion (CPM) machine. ) Patient Instructions/Handouts: *Surgery [facility] - On-Q Pain Pump Discharge Instructions, *Surgery [facility] - (Anesthesia) Discharge Instructions Outpatient Surgery, How to Use an Incentive Spirometer (DC), Continuous Passive Motion Machine (DC), Knee Replacement (DC) Activity/Diet/Wound Care/Special Instructions: Weightbearing as tolerated with a walker. CPM 5-6h daily as tolerated. Leave dressing intact. Dressing may be removed by home care nurse or by patient in 7 days. Then change dressing twice daily until follow up. May shower with initial dressing intact and after removal. If dressing become saturated, please remove. Recommend use of compression stockings daily until follow up to help prevent swelling and blood clots. May remove at night before sleeping. Please take aspirin 325mg twice daily for 30 days to prevent blood clots. Please follow up with [facility] and call with any questions or concerns, . Discharge Disposition: HOME WITH HOME HEALTH SERVICES
[2021-11-13] MEDS: SODIUM CHLORIDE 0.9% 1,000 ML IV SCH (11:29)
--- NOTE | 2021-11-13 13:07 | P.PN ---
Subjective Progress Note Date: 11/13/21 Principal diagnosis: knee pain Doing well. Foot is still slightly dropped but able to walk with therapy. No fevers or chills. No sob or cp. Objective - Vital Signs Vital signs: Vital Signs Temp 98.2 F 11/13/21 07:48 Pulse 63 11/13/21 07:48 Resp 16 11/13/21 07:48 BP 110/52 11/13/21 07:48 Pulse Ox 96 11/13/21 07:48 Intake & Output 11/12/21 11/13/21 11/13/21 18:59 06:59 18:59 Intake Total 1876 Output Total 50 Balance 1826 Weight 75.3 kg Intake: IV 1876 Output: Estimated Blood Loss 50 Other: Voiding Method Toilet Toilet # Voids 1 - Labs CBC & Chem 7: 11/13/21 06:17 Labs: Abnormal Lab Results - Last 24 Hours (Table) 11/13/21 Range/Units 06:17 WBC 11.84 H (4.50-10.00) X 10*3/uL Hgb 11.9 L (12.0-15.0) g/dL MCHC 31.3 L (32.0-37.0) g/dL Neutrophils # 9.96 H (1.80-7.70) X 10*3/uL Eosinophils # 0 L (0.04-0.35) X 10*3/uL Assessment and Plan Plan: Hypothyroidism -Continue with home meds Status post right total knee replacement -Patient cleared for discharge by surgery service, also cleared by us
[2021-11-13 13:53] VITALS: BP 129/62; PULSE 58; TEMP 97.8
== END 2021-11-13 16:10 | disposition home health service (06) ==
LOC: OR 05:33 → 4SSUR 18:12 → OR 11-13 16:10
PROVIDERS: ATTEND Orthopaedic Surgery
DX: M17.11 Unilateral primary osteoarthritis, right knee (principal); Z20.822 Contact with and (suspected) exposure to COVID-19
CPT/HCPCS: 27447; 97162; 87635; 73560; J2250; J1200; J1100; J0690 ×2; J2405; J3010; J2795; J1790; 64448; 64999; 76942; 85025; 88300

== ENCOUNTER → 2022-04-26 | Outpatient (CLI) | payer BC ==
[2022-04-26 11:26] LABS: HCT 45.7 % (37.2-46.3); HGB 14.2 g/dL (12.0-15.0); MCH 27.4 pg (27.0-32.0); MCHC 31.1 g/dL (32.0-37.0); MCV 88.1 fL (80.0-97.0); Mean Platelet Volume 10.7 fL (9.5-12.2); NRBC Per 100 WBC 0 /100 WBCS (0.0-0.0); Platelet Count 307 X 10*3/uL (140-440); RBC 5.19 X 10*6/uL (4.10-5.20); RDW 14.4 % (11.5-14.5); WBC 6.42 X 10*3/uL (4.50-10.00)
[2022-04-26 11:33] LABS: ALT 15 U/L (8-44); AST 19 U/L (13-35); African American GFR (CKD) 68.9 (60.0-200.0); Albumin 4.6 g/dL (3.8-4.9); Albumin/Globulin Ratio 1.59 (1.60-3.17); Alkaline Phosphatase 90 U/L (41-126); Blood Urea Nitrogen 16.7 mg/dL (9.0-27.0); Calcium 9.6 mg/dL (8.7-10.3); Carbon Dioxide 25.8 mmol/L (20.0-27.5); Chloride 104 mmol/L (96-109); Globulin 2.9 g/dL (1.6-3.3); Glucose 102 mg/dL (70-110); Non-African American GFR(CKD) 59.5 (60.0-200.0); Rheumatoid Factor, Qnt <10 IU/mL (0-15); Sodium 141 mmol/L (135-145); Total Protein 7.5 g/dL (6.2-8.2)
[2022-04-26 11:51] LABS: Appearance,Urine Clear (Clear); Bilirubin,Urine Negative (Negative); Blood,Urine Negative (Negative); Color,Urine Yellow (Yellow); Ketones,Urine Negative (Negative); Nitrite,Urine Negative (Negative); PH, Urine 6.5 (5.0-8.0); Specific Gravity,Urine 1.012 (1.001-1.030); Urobilinogen,Urine 0.2 (0.2,1.0)
[2022-04-26 11:57] LABS: Bacteria,Urine None Seen /HPF (None Seen)
[2022-04-26 12:12] LABS: Erythrocyte Sedimentation Rate 13 mm/Hr (0-30)
== END | disposition home or self-care (01) ==
LOC: LABWHC1 08:07
PROVIDERS: ATTEND Internal Medicine Rheumatology
DX: M25.50 Pain in unspecified joint (principal)
CPT/HCPCS: 36415; 80053; 81001; 85027; 85652; 86200; 86431

== ENCOUNTER 2023-04-08 01:25 | Inpatient (IN) | payer MEDICARE ==
[2023-04-08] MEDS ORDERED: IPRATROPIUM-ALBUTEROL 3 ML NEB INHALATION STA (02:12)
--- NOTE | 2023-04-08 02:14 | ED ---
SOB HPI - General Chief Complaint: Shortness of Breath Stated Complaint: sindy Time Seen by Provider: 04/08/23 01:39 Source: patient, family, RN notes reviewed Mode of arrival: ambulatory Limitations: no limitations - History of Present Illness Initial Comments: This is a 67-year-old female who presents to the emergency department for shortness of breath. Reports intermittent shortness of breath over the last 2 weeks. However, this has increased substantially over the last couple of days. She and her were around their grandchildren 2 weeks ago, and her got sick as well. They were both treated with steroids and antibiotics. She ca nnot recall which antibiotic this was. He seemed to get better, however she has continued to worsen. Other than sleep apnea, she denies any respiratory illnesses. She is a former smoker. She's not measured any fevers at home. She reports associated headaches and coughing. Denies any fevers, chills, sore throat, chest pain, palpitations, abdominal pain, nausea, vomiting, diarrhea, or back pain. MD Complaint: shortness of breath, cough Onset/Timin -: week(s) - Related Data Home Medications Medication Instructions Recorded Confirmed Levothyroxine Sodium [Synthroid] 50 mcg PO DAILY 07/31/16 04/08/23 Allergies Allergy/AdvReac Type Severity Reaction Status Date / Time No Known Allergies Allergy Verified 04/08/23 06:55 Review of Systems ROS Statement: Those systems with pertinent positive or pertinent negative responses have been documented in the HPI. ROS Other: All systems not noted in ROS Statement are negative. Past Medical History Past Medical History: Osteoarthritis (OA), Sleep Apnea/CPAP/BIPAP, Thyroid Disorder History of Any Multi-Drug Resistant Organisms: None Reported Past Surgical History: Section Additional Past Surgical History / Comment(s): B knee arthroscopy Past Anesthesia/Blood Transfusion Reactions: No Reported Reaction Past Psychological History: No Psychological Hx Reported Smoking Status: Former smoker Past Alcohol Use History: Occasional Past Drug Use History: None Reported - Past Family History Sister(s) Family Medical History: Cancer Father Family Medical History: Pulmonary Embolus Brother(s) Family Medical History: Pulmonary Embolus Mother Family Medical History: Deep Vein Thrombosis (DVT) General Exam Limitations: no limitations General appearance: alert, other (Respiratory distress, speaking 2-3 word sentences.) Head exam: Present: atraumatic, normocephalic, normal inspection Respiratory exam: Present: respiratory distress, accessory muscle use, other (speaking in 2-3 word sentences. Diminished breath sounds.). Absent: wheezes, rales, rhonchi Cardiovascular Exam: Present: regular rate, normal rhythm, normal heart sounds. Absent: systolic murmur, diastolic murmur, rubs, gallop, clicks Neurological exam: Present: alert, oriented X3, CN II-XII intact Psychiatric exam: Present: normal affect, normal mood Skin exam: Present: warm, dry, intact, normal color. Absent: rash Course Vital Signs 04/08/23 04/08/23 04/08/23 01:33 02:25 02:28 Temperature 99.1 F Pulse Rate 89 77 78 Pulse Rate [ Pulse Oximetery ] Respiratory 18 Rate Blood Pressure 102/55 Blood Pressure [Left Arm] O2 Sat by Pulse 97 Oximetry 04/08/23 04/08/23 04/08/23 02:35 03:57 07:00 Temperature 98.3 F Pulse Rate 88 91 92 Pulse Rate [ Pulse Oximetery ] Respiratory 18 16 20 Rate Blood Pressure 118/59 119/58 117/63 Blood Pressure [Left Arm] O2 Sat by Pulse 96 95 92 L Oximetry 04/08/23 04/08/23 04/08/23 07:22 07:33 11:00 Temperature Pulse Rate 85 86 95 Pulse Rate [ Pulse Oximetery ] Respiratory 16 Rate Blood Pressure 113/57 Blood Pressure [Left Arm] O2 Sat by Pulse 92 L Oximetry 04/08/23 04/08/23 14:00 14:50 Temperature 98.3 F Pulse Rate 80 Pulse Rate [ 81 Pulse Oximetery ] Respiratory 18 18 Rate Blood Pressure 111/53 Blood Pressure 117/69 [Left Arm] O2 Sat by Pulse 96 94 L Oximetry Medical Decision Making - Medical Decision Making This is a 67-year-old female who presents to the emergency department for shortness of breath. Was pt. sent in by a medical professional or institution? @ -No Did you speak to anyone other than the patient for history? @ -No Did you review nursing and triage notes? @ -Yes, and I agree, it is accurate with regards to the patient's symptoms. Were old charts reviewed? @ -No Differential Diagnosis? @ -Differential Dyspnea: Coronary syndrome, arrhythmia, tamponade, asthma, COPD, pulmonary embolism, pneumonia, pneumothorax, pulmonary effusion, anaphylaxis, diabetic ketoacidosis, flailed chest, pulmonary contusion, diaphragmatic rupture, anemia, neuromuscular, this is not meant to be an all-inclusive list. EKG interpreted by me (3pts min.)? @ -Sinus rhythm. Ventricular rate 83 bpm, NJ interval 151 ms, QRS duration 101 ms, QTC 416 ms. X-rays interpreted by me (1pt min.)? @ -Chest x-ray obtained. My interpretation identifies possible pulmonary edema. CT interpreted by me (1pt min.)? @ -CTA of the chest was obtained. My interpretation identifies groundglass opacities in the bilateral lobes. I do not identify any evidence of a pulmonary embolus. U/S interpreted by me (1pt. min.)? @ -Not obtained What testing was considered but not performed? (CT, X-rays, U/S, labs)? Why? @ -None What meds were considered but not given? Why? @ -None Did you discuss the management of the patient with other professionals? @ -Yes, Dr. Hernandez who accepts the patient for admission. Did you reconcile home meds? @ -No Was smoking cessation discussed for >3mins.? @ -No Was critical care preformed (if so, how long)? @ -No Were there social determinants of health that impacted care today? How? (Homelessness, low income, unemployed, alcoholism, drug addiction, transportation, low edu. Level, literacy, decrease access to med. care, penitentiary, rehab)? @ -No Was there de-escalation of care discussed even if they declined? (Discuss DNR or withdrawal of care, Hospice)? @ -No What co-morbidities impacted this encounter? (DM, HTN, Smoking, COPD, CAD, Cancer, CVA, Hep., AIDS, mental health diagnosis, sleep apnea, morbid obesity)? @ -VICENTE, thyroid disorder Was patient admitted / discharged? @ -Admitted. When the patient was brought back into the examination room, she had an oxygen saturation of 89% on room air with conversational dyspnea. She was subsequently put on 3 L of oxygen via nasal cannula and has since been maintaining adequate oxygen saturation with improvement in respiratory status. DuoNeb breathing treatment administered, which the patient states was mildly beneficial. Covid, influenza, and RSV testing were negative. Heterophile testing negative as well, which was obtained per the patient's request due to her history of mono. While pulmonary edema and cardiomegaly were noted on the patient's chest x-ray, her BNP was negative for signs of CHF. D-dimer was elevated at 3.45 and a CTA of the chest was subsequently obtained. CTA results pending at the time of admission due to the delay with [employer]. While the CTA results are pending, patient admitted to medicine for acute hypoxic respiratory failure. Pulmonology listed as consult. Undiagnosed new problem with uncertain prognosis? @ -None Drug Therapy requiring intensive monitoring for toxicity (Heparin, Nitro, I nsulin, Cardizem)? @ -None Were any procedures done? @ -None Diagnosis/symptom? @ -Hypoxia, Acute respiratory failure Acute, or Chronic, or Acute on Chronic? @ -Acute Uncomplicated (without systemic symptoms) or Complicated (systemic symptoms)? @ -Complicated Side effects of treatment? @ -None Exacerbation, Progression, or Severe Exacerbation] @ -Not applicable Poses a threat to life or bodily function? @ -Yes This case was discussed in detail with the attending ED physician, Dr. Robles. Presentation, findings, and treatment plan discussed in detail as well. - Lab Data Result diagrams: 04/08/23 02:01 04/08/23 02:01 Lab Results 04/08/23 04/08/23 04/08/23 Range/Units 02:01 02:01 02:01 WBC 6.7 (3.8-10.6) k/uL RBC 4.81 (3.80-5.40) m/uL Hgb 13.8 (11.4-16.0) gm/dL Hct 41.6 (34.0-46.0) % MCV 86.5 (80.0-100.0) fL MCH 28.7 (25.0-35.0) pg MCHC 33.2 (31.0-37.0) g/dL RDW 14.0 (11.5-15.5) % Plt Count 319 (150-450) k/uL MPV 7.7 Neutrophils % 68 % Lymphocytes % 25 % Monocytes % 2 % Eosinophils % 1 % Basophils % 1 % Neutrophils # 4.6 (1.3-7.7) k/uL Lymphocytes # 1.7 (1.0-4.8) k/uL Monocytes # 0.1 (0-1.0) k/uL Eosinophils # 0.1 (0-0.7) k/uL Basophils # 0.1 (0-0.2) k/uL PT 10.5 (9.0-12.0) sec INR 1.0 (<1.2) APTT 22.3 (22.0-30.0) sec D-Dimer 3.45 H (<0.60) mg/L FEU Sodium 134 L (137-145) mmol/L Potassium 4.2 (3.5-5.1) mmol/L Chloride 99 (98-107) mmol/L Carbon Dioxide 25 (22-30) mmol/L Anion Gap 10 mmol/L BUN 17 (7-17) mg/dL Creatinine 0.97 (0.52-1.04) mg/dL Est GFR (CKD-EPI)AfAm 71 (>60 ml/min/1.73 sqM) Est GFR (CKD-EPI)NonAf 62 (>60 ml/min/1.73 sqM) Glucose 112 H (74-99) mg/dL Plasma Lactic Acid Edgar (0.7-2.0) mmol/L Calcium 8.1 L (8.4-10.2) mg/dL Total Bilirubin 1.0 (0.2-1.3) mg/dL AST 35 (14-36) U/L ALT 32 (4-34) U/L Alkaline Phosphatase 133 H (38-126) U/L Troponin I (0.000-0.034) ng/mL NT-Pro-B Natriuret Pep pg/mL Total Protein 6.7 (6.3-8.2) g/dL Albumin 3.5 (3.5-5.0) g/dL Procalcitonin (0.02-0.09) ng/mL Heterophile Antibody (Negative) Influenza Type A (PCR) (Not Detectd) Influenza Type B (PCR) (Not Detectd) RSV (PCR) (Not Detectd) SARS-CoV-2 (PCR) (Not Detectd) 04/08/23 04/08/23 04/08/23 Range/Units 02:01 02:01 02:01 WBC (3.8-10.6) k/uL RBC (3.80-5.40) m/uL Hgb (11.4-16.0) gm/dL Hct (34.0-46.0) % MCV (80.0-100.0) fL MCH (25.0-35.0) pg MCHC (31.0-37.0) g/dL RDW (11.5-15.5) % Plt Count (150-450) k/uL MPV Neutrophils % % Lymphocytes % % Monocytes % % Eosinophils % % Basophils % % Neutrophils # (1.3-7.7) k/uL Lymphocytes # (1.0-4.8) k/uL Monocytes # (0-1.0) k/uL Eosinophils # (0-0.7) k/uL Basophils # (0-0.2) k/uL PT (9.0-12.0) sec INR (<1.2) APTT (22.0-30.0) sec D-Dimer (<0.60) mg/L FEU Sodium (137-145) mmol/L Potassium (3.5-5.1) mmol/L Chloride (98-107) mmol/L Carbon Dioxide (22-30) mmol/L Anion Gap mmol/L BUN (7-17) mg/dL Creatinine (0.52-1.04) mg/dL Est GFR (CKD-EPI)AfAm (>60 ml/min/1.73 sqM) Est GFR (CKD-EPI)NonAf (>60 ml/min/1.73 sqM) Glucose (74-99) mg/dL Plasma Lactic Acid Edgar 1.7 (0.7-2.0) mmol/L Calcium (8.4-10.2) mg/dL Total Bilirubin (0.2-1.3) mg/dL AST (14-36) U/L ALT (4-34) U/L Alkaline Phosphatase (38-126) U/L Troponin I <0.012 (0.000-0.034) ng/mL NT-Pro-B Natriuret Pep pg/mL Total Protein (6.3-8.2) g/dL Albumin (3.5-5.0) g/dL Procalcitonin (0.02-0.09) ng/mL Heterophile Antibody (Negative) Influenza Type A (PCR) Not Detected (Not Detectd) Influenza Type B (PCR) Not Detected (Not Detectd) RSV (PCR) Not Detected (Not Detectd) SARS-CoV-2 (PCR) Not Detected (Not Detectd) 04/08/23 04/08/23 04/08/23 Range/Units 02:31 02:31 04:00 WBC (3.8-10.6) k/uL RBC (3.80-5.40) m/uL Hgb (11.4-16.0) gm/dL Hct (34.0-46.0) % MCV (80.0-100.0) fL MCH (25.0-35.0) pg MCHC (31.0-37.0) g/dL RDW (11.5-15.5) % Plt Count (150-450) k/uL MPV Neutrophils % % Lymphocytes % % Monocytes % % Eosinophils % % Basophils % % Neutrophils # (1.3-7.7) k/uL Lymphocytes # (1.0-4.8) k/uL Monocytes # (0-1.0) k/uL Eosinophils # (0-0.7) k/uL Basophils # (0-0.2) k/uL PT (9.0-12.0) sec INR (<1.2) APTT (22.0-30.0) sec D-Dimer (<0.60) mg/L FEU Sodium (137-145) mmol/L Potassium (3.5-5.1) mmol/L Chloride (98-107) mmol/L Carbon Dioxide (22-30) mmol/L Anion Gap mmol/L BUN (7-17) mg/dL Creatinine (0.52-1.04) mg/dL Est GFR (CKD-EPI)AfAm (>60 ml/min/1.73 sqM) Est GFR (CKD-EPI)NonAf (>60 ml/min/1.73 sqM) Glucose (74-99) mg/dL Plasma Lactic Acid Edgar (0.7-2.0) mmol/L Calcium (8.4-10.2) mg/dL Total Bilirubin (0.2-1.3) mg/dL AST (14-36) U/L ALT (4-34) U/L Alkaline Phosphatase (38-126) U/L Troponin I (0.000-0.034) ng/mL NT-Pro-B Natriuret Pep 209 pg/mL Total Protein (6.3-8.2) g/dL Albumin (3.5-5.0) g/dL Procalcitonin 0.70 H (0.02-0.09) ng/mL Heterophile Antibody Negative (Negative) Influenza Type A (PCR) (Not Detectd) Influenza Type B (PCR) (Not Detectd) RSV (PCR) (Not Detectd) SARS-CoV-2 (PCR) (Not Detectd) - Radiology Data Radiology results: report reviewed, image reviewed Disposition Clinical Impression: Hypoxia, Acute respiratory failure Disposition: ADMITTED IP TO THIS HOSP
--- NOTE | 2023-04-08 02:17 | XR ---
EXAM: XR Chest, 2 Views CLINICAL HISTORY: ITS.REASON XR Reason: difficulty breathing TECHNIQUE: Frontal and lateral views of the chest. COMPARISON: No relevant prior studies available. IMPRESSION: Cardiomegaly with moderate edema
[2023-04-08 02:44] LABS: Basophils # (A) 0.1 k/uL (0-0.2); Basophils % (A) 1 %; Eosinophils # (A) 0.1 k/uL (0-0.7); Eosinophils % (A) 1 %; HCT 41.6 % (34.0-46.0); HGB 13.8 gm/dL (11.4-16.0); Lymphocytes # (A) 1.7 k/uL (1.0-4.8); Lymphocytes % (A) 25 %; MCH 28.7 pg (25.0-35.0); MCHC 33.2 g/dL (31.0-37.0); MCV 86.5 fL (80.0-100.0); Mean Platelet Volume 7.7; Monocytes # (A) 0.1 k/uL (0-1.0); Monocytes % (A) 2 %; Neutrophils # (A) 4.6 k/uL (1.3-7.7); Neutrophils % (A) 68 %; Platelet Count 319 k/uL (150-450); RBC 4.81 m/uL (3.80-5.40); WBC 6.7 k/uL (3.8-10.6)
[2023-04-08 02:53] LABS: Albumin 3.5 g/dL (3.5-5.0); Calcium 8.1 mg/dL (8.4-10.2); Potassium 4.2 mmol/L (3.5-5.1); Total Protein 6.7 g/dL (6.3-8.2)
[2023-04-08 03:01] LABS: Partial Thromboplastin Time 22.3 sec (22.0-30.0); Prothrombin Time 10.5 sec (9.0-12.0)
[2023-04-08] MEDS ORDERED: NALOXONE 0.4 MG/ML 1 ML VIAL IV PRN (04:42)
[2023-04-08] MEDS ORDERED: ONDANSETRON 4 MG/2 ML VIAL IVP PRN (04:42)
[2023-04-08] MEDS ORDERED: ACETAMINOPHEN TAB 325 MG TAB PO PRN (04:42)
--- NOTE | 2023-04-08 04:54 | P.HPIM ---
History of Present Illness H&P Date: 04/08/23 The patient is a 67-year-old female with a PMH of hypothyroidism who presents to the emergency room with complaints of shortness of breath, fatigue, and fevers. Patient reports that his symptoms started roughly 3-4 days ago and gradually worsened. She reports cough productive of small amounts of brown yellow sputum. She endorsed subjective chills at home. Denies hemoptysis. Denied nausea, vomiting, abdominal pain, diarrhea. The patient underwent an extensive evaluation in the emergency room with chest x-ray showing cardiomegaly with moderate edema. EKG revealed sinus rhythm at [address]/T-wave changesare as reviewed by me. ED documentation reviewed and case discussed with ED provider. Review of systems: Pertinent positives and negatives as discussed in HPI, a complete review of systems was performed and all other systems are negative. Physical examination: Vital signs reviewed General: non toxic, no distress, appears at stated age, normal weight Derm: no unusual rashes/lesions, warm Head: atraumatic, normocephalic, symmetric Eyes: EOMI, no lid lag, anicteric sclera, pupils equal round reactive to light ENT: Nose and ears atraumatic Neck: No cervical lymphadenopathy, trachea midline, supple Mouth: no lip lesion, mucus membranes moist Cardiovascular: S1S2 reg, no murmur, positive dorsalis pedis pulse bilateral, no edema Lungs: Scattered without rales alpation, no guarding Ext: muscle strength 5 out of 5 in all 4 extremities grossly, no gross muscle atrophy, no contractures, Neuro: CN II-XI grossly intact, no gross focal neuro deficits Psych: Alert, oriented, appropriate affect Assessment: Respiratory failure, likely secondary to community-acquired pneumonia Imaging: Chronic conditions: Hypothyroidism EKG revealed sinus rhythm at 182 beats per minute with incomplete right bundle- branch block. Chest x-ray revealed cardiomegaly with moderate edema. CT angiogram is currently pending although discussed the image with the ED physician who felt that it was low likelihood of PE. Data Review: Laboratory evaluation was reviewed with WBC count 13.8, d-dimer 3.45, sodium 134, potassium 4.2, glucose 112, total bilirubin 8.1, troponin less than 0.012. Plan: F/u CT angiogram Pulmonary consulted Obtain procalcitonin levels Check Echocardiogram DVT prophylaxis: Heparin sub The patient is admitted with an anticipated greater than 2 midnight stay for evaluation of penoumnia CODE STATUS: Full Code Discussed with: Patient Anticipated discharge date: 2-[address]: Home Past Medical History Past Medical History: Osteoarthritis (OA), Sleep Apnea/CPAP/BIPAP, Thyroid Disorder History of Any Multi-Drug Resistant Organisms: None Reported Past Surgical History: Section Additional Past Surgical History / Comment(s): B knee arthroscopy Past Anesthesia/Blood Transfusion Reactions: No Reported Reaction Past Psychological History: No Psychological Hx Reported Smoking Status: Former smoker Past Alcohol Use History: Occasional Past Drug Use History: None Reported - Past Family History Sister(s) Family Medical History: Cancer Father Family Medical History: Pulmonary Embolus Brother(s) Family Medical History: Pulmonary Embolus Mother Family Medical History: Deep Vein Thrombosis (DVT) Medications and Allergies Home Medications Medication Instructions Recorded Confirmed Type Levothyroxine Sodium [Synthroid] 50 mcg PO DAILY 07/31/16 11/12/21 History Aspirin 325 mg PO BID #60 tab 11/12/21 Rx HYDROcodone/APAP 7.5-325MG [[place] 1 - 2 tab PO Q6H PRN #32 tab 11/12/21 Rx 7.5-325] Ondansetron Odt [Zofran Odt] 1 tab PO Q8HR PRN #10 tab 11/12/21 Rx Sennosides [Senokot] 2 tab PO DAILY PRN #60 tablet 11/12/21 Rx Allergies Allergy/AdvReac Type Severity Reaction Status Date / Time No Known Allergies Allergy Verified 04/08/23 01:33 Physical Exam Vitals: Vital Signs Temp Pulse Resp BP Pulse Ox 04/08/23 03:57 91 16 119/58 95 04/08/23 02:35 88 18 118/59 96 04/08/23 02:28 78 04/08/23 02:25 77 04/08/23 01:33 99.1 F 89 18 102/55 97 Intake and Output 04/07/23 04/07/23 04/08/23 14:59 22:59 06:59 Other: Weight 70.76 kg Results CBC & Chem 7: 04/08/23 02:01 04/08/23 02:01 Labs: Abnormal Lab Results - Last 24 Hours (Table) 04/08/23 04/08/23 Range/Units 02:01 02:01 D-Dimer 3.45 H (<0.60) mg/L FEU Sodium 134 L (137-145) mmol/L Glucose 112 H (74-99) mg/dL Calcium 8.1 L (8.4-10.2) mg/dL Alkaline Phosphatase 133 H (38-126) U/L
--- NOTE | 2023-04-08 06:21 | CT ---
EXAM: CT Angiography Chest With Intravenous Contrast CLINICAL HISTORY: ITS.REASON CT Reason: DARIN, hypoxia, elevated d-dimer TECHNIQUE: Axial computed tomographic angiography images of the chest with intravenous contrast. CTDI is 10.2 mGy and DLP is 286.5 mGy-cm. This CT exam was performed using one or more of the following dose reduction techniques: automated exposure control, adjustment of the mA and/or kV according to patient size, and/or use of iterative reconstruction technique. MIP reconstructed images were created and reviewed. COMPARISON: No relevant prior studies available. FINDINGS: Pulmonary arteries: Limited examination given motion artifact. Despite this, no evidence of pulmonary embolism within the pulmonary outflow tract. Aorta: Atherosclerotic disease. No thoracic aortic aneurysm. Lungs: Mild interlobular septal thickening which can be seen with interstitial pulmonary edema. Multifocal patchy and confluent ground glass opacities within the lungs which may be due to volume overload. Infection not excluded. Pleural space: Unremarkable. No significant effusion. No pneumothorax. Heart: Unremarkable. No cardiomegaly. No significant pericardial effusion. No evidence of RV dysfunction. Bones/joints: Degenerative changes in the spine. No acute fracture. No dislocation. Soft tissues: Unremarkable. Lymph nodes: Unremarkable. No enlarged lymph nodes. IMPRESSION: 1. Limited examination given motion artifact. Despite this, no evidence of pulmonary embolism within the pulmonary outflow tract. 2. Mild interlobular septal thickening which can be seen with interstitial pulmonary edema. 3. Multifocal patchy and confluent ground glass opacities within the lungs which may be due to volume overload. Infection not excluded. 4. Other incidental findings as described.
[2023-04-08] MEDS ORDERED: IPRATROPIUM-ALBUTEROL 3 ML NEB INHALATION PRN (06:41)
[2023-04-08] MEDS: IPRATROPIUM-ALBUTEROL 3 ML NEB INHALATION SCH ×4 (07:19→20:35)
--- NOTE | 2023-04-08 07:44 | P.CNPUL ---
History of Present Illness Consult date: 04/08/23 Requesting physician: Monika Garces Reason for consult: pneumonia Chief complaint: Shortness of breath and cough History of present illness: I'm seeing this patient in new consultation today 04/08/2023 for suspected bilateral community-acquired pneumonia. Patient is a 67-year-old white female with past medical history significant for hypothyroidism, mild obstructive sleep apnea, osteoarthritis, and an ex-smoker of over 30 pack years. Her primary care provider is Dr. Gomez. Patient presented to the emergency room earlier this morning with chief complaint of progressive worsening shortness of breath, persistent nonproductive cough, night sweats, and generalized fatigue for approximately one week. Denies any hemoptysis. She does report that family members within her house also had similar symptoms within the last couple weeks including her , daughter, and grandchildren. She was treated outpatient basis with a course of antibiotics and steroids. She denies any chest pain, lower extremity swelling, orthopnea, heart palpitations, syncope. Chest CTA on arrival was negative for any pulmonary embolism. It did show multifocal patchy confluent groundglass opacities within bilateral lung tamayo. This is thought to demonstrate volume overload versus atypical pneumonia. She was negative for COVID-19, RSV, influenza. CBC shows no leukocytosis. NT proBNP was low at 209. Troponin negative 1. BMP was essentially unremarkable. Patient is currently lying in bed, on 3 L nasal cannula, in no acute distress. She does have a significant nonproductive persistent cough. Vital signs are stable. Review of Systems REVIEW OF SYSTEMS: CONSTITUTIONAL: Denies any recent significant weight loss or weight gain. EYES: Denies change in vision. EARS, NOSE, MOUTH, THROAT: Denies headaches, denies sore throat. CARDIOVASCULAR: Denies chest pain, palpitations or syncopal episodes. RESPIRATORY: See HPI. GASTROINTESTINAL: Admits some nausea without vomiting, intermittent diarrhea, and reduced appetite over the last 1 week. Denies abdominal pain. GENITOURINARY: Denies hematuria, denies infections. MUSKULOSKELETAL: Denies pain, denies swelling. INTEGUMENTARY: Denies rash, denies eczema. NEUROLOGICAL: Denies recent memory loss, no recent seizure activity. PSYCHIATRIC: Denies anxiety, denies depression. HEMATOLOGIC/LYMPHATIC: Denies anemia, denies enlarged lymph node Past Medical History Past Medical History: Osteoarthritis (OA), Sleep Apnea/CPAP/BIPAP, Thyroid Disorder History of Any Multi-Drug Resistant Organisms: None Reported Past Surgical History: Section Additional Past Surgical History / Comment(s): B knee arthroscopy Past Anesthesia/Blood Transfusion Reactions: No Reported Reaction Past Psychological History: No Psychological Hx Reported Smoking Status: Former smoker Past Alcohol Use History: Occasional Past Drug Use History: None Reported - Past Family History Sister(s) Family Medical History: Cancer Father Family Medical History: Pulmonary Embolus Brother(s) Family Medical History: Pulmonary Embolus Mother Family Medical History: Deep Vein Thrombosis (DVT) Medications and Allergies Home Medications Medication Instructions Recorded Confirmed Type Levothyroxine Sodium [Synthroid] 50 mcg PO DAILY 07/31/16 11/12/21 History Allergies Allergy/AdvReac Type Severity Reaction Status Date / Time No Known Allergies Allergy Verified 04/08/23 06:55 Physical Exam Vitals: Vital Signs Temp Pulse Resp BP Pulse Ox 04/08/23 03:57 91 16 119/58 95 04/08/23 02:35 88 18 118/59 96 04/08/23 02:28 78 04/08/23 02:25 77 04/08/23 01:33 99.1 F 89 18 102/55 97 Intake and Output 04/07/23 04/07/23 04/08/23 14:59 22:59 06:59 Other: Weight 70.76 kg GENERAL EXAM: Alert, 67-year-old white female , in no acute distress. She does have a persistent dry nonproductive cough. HEAD: Normocephalic and atraumatic EYES: Normal reaction of pupils, equal size. NOSE: Clear with pink turbinates. THROAT: No erythema or exudates. NECK: No masses, no JVD. CHEST: No chest wall deformity. LUNGS: Equal air entry with scattered crackles. No wheeze, rhonchi or dullness. On 3 L nasal cannula. No conversational dyspnea or accessory muscle use.. CVS: S1 and S2 normal with no audible murmur, regular rhythm. No extra heart sounds ABDOMEN: No hepatosplenomegaly, active bowel sounds, no guarding or rigidity. SPINE: No scoliosis or deformity SKIN: No rashes CENTRAL NERVOUS SYSTEM: No focal deficits, tone is normal in all 4 extremities. EXTREMITIES: There is no peripheral edema, clubbing, or cyanosis. Peripheral pulses are intact. Results - Laboratory Findings CBC and BMP: 04/08/23 02:01 04/08/23 02:01 PT/INR, D-dimer PT 10.5 sec (9.0-12.0) 04/08/23 02:01 INR 1.0 (<1.2) 04/08/23 02:01 D-Dimer 3.45 mg/L FEU (<0.60) H 04/08/23 02:01 Abnormal lab findings: Abnormal Labs 04/08/23 04/08/23 02:01 02:01 D-Dimer 3.45 H Sodium 134 L Glucose 112 H Calcium 8.1 L Alkaline Phosphatase 133 H - Diagnostic Findings Chest x-ray: image reviewed CT scan - chest: image reviewed Assessment and Plan Assessment: Suspected bilateral community-acquired pneumonia, chest CTA showed multifocal patchy confluent groundglass opacities within bilateral lung tamayo. This is thought to demonstrate volume overload versus interstitial pneumonitis. Negative for COVID-19, influenza, RSV. NT proBNP level was low at 200 Acute hypoxemic respiratory failure secondary to above, currently on 3 L nasal cannula Elevated d-dimer, chest CTA ruled out pulmonary embolism Hypothyroidism Mild obstructive sleep apnea without CPAP use Osteoarthritis Ex-smoker, with a [id number] history Plan: Patient's medications, labs, chest x-ray, chest CTA were reviewed Continue supplemental oxygen to maintain oxygen saturation of 92% or greater Start the patient on empiric antibiotics Check procalcitonin level Check urine Legionella antigen trial of lasix Tessalon Perles for nonproductive cough Bronchodilators Heparin for DVT prophylaxis Patient is hemodynamically stable, and will be admitted to the general medical floor once bed available We will continue to follow I have personally seen and examined the patient, performed the documentation and the assessment and plan as written. Number of minutes spent on the visit:20 Time with Patient: Greater than 30
[2023-04-08] MEDS: BENZONATATE 100 MG CAP PO SCH ×4 (08:12→21:05)
[2023-04-08] MEDS: HEPARIN SODIUM,PORCINE/PF 5,000 UNIT/0.5 ML SYRINGE SQ SCH ×3 (08:12→23:30)
[2023-04-08] MEDS: AZITHROMYCIN 500 MG in SODIUM CHLORIDE 0.9% 250 ML IVPB SCH (08:40)
[2023-04-08] MEDS ORDERED: FUROSEMIDE 10 MG/ML 4 ML VIAL IV SCH (09:00)
[2023-04-08] MEDS: SODIUM CHLORIDE 0.9% 1,000 ML IV SCH ×2 (10:10→19:47)
[2023-04-08] MEDS: methylPREDNISolone SOD SUCCI 40 MG/ML 1 ML VIAL IV SCH ×3 (10:14→23:30)
[2023-04-08 11:57] LABS: Appearance,Urine Clear (Clear); Bilirubin,Urine Negative (Negative); Blood,Urine Negative (Negative); Color,Urine Yellow; Glucose,Urine (UA) Negative (Negative); Ketones,Urine Trace (Negative); Leukocyte Esterase,Urine Large (Negative); Mucus,Urine Rare /hpf; Nitrite,Urine Negative (Negative); Protein,Urine Trace (Negative); RBC,Urine 6 /hpf (0-5); Squamous Epithelial Cell,Urine 1 /hpf (0-4); Urobilinogen,Urine <2.0 mg/dL (<2.0); WBC,Urine 7 /hpf (0-5)
[2023-04-08 12:19] LABS: Specific Gravity,Urine >1.050 (1.001-1.035)
--- NOTE | 2023-04-08 12:29 | CA ---
Transthoracic Echo Report Name: Susan Ortega Age: 67 Gender: F : 1955 Exam Date: 04/08/2023 07:30 Exam Location: [facility] Ht (in): 62 Wt (lb): 156 Ordering Physician: Duglas Hernandez MD Attending/Referring Phys: [employer] Supervisor Mireille Mcginnis RDCS Procedure CPT: Indications: sob Cardiac Hx: Technical Quality: Good Contrast 1: Total Dose (mL): Contrast 2: Total Dose (mL): MEASUREMENTS (Male / Female) Normal Values 2D ECHO LV Diastolic Diameter PLAX 3.8 cm 4.2 - 5.9 / 3.9 - 5.3 cm LV Systolic Diameter PLAX 2.6 cm IVS Diastolic Thickness 1.0 cm 0.6 - 1.0 / 0.6 - 0.9 cm LVPW Diastolic Thickness 1.0 cm 0.6 - 1.0 / 0.6 - 0.9 cm LV Relative Wall Thickness 0.5 RV Internal Dim ED PLAX 2.7 cm LA Systolic Diameter LX 3.1 cm 3.0 - 4.0 / 2.7 - 3.8 cm LA Volume 25.4 cm??? 18 - 58 / 22 - 52 cm??? M-MODE Aortic Root Diameter MM 2.8 cm MV E Point Septal Separation 0.6 cm AV Cusp Separation MM 1.9 cm DOPPLER AV Peak Velocity 175.3 cm/s AV Peak Gradient 12.3 mmHg MV Area PHT 3.3 cm??? Mitral E Point Velocity 104.7 cm/s Mitral A Point Velocity 107.9 cm/s Mitral E to A Ratio 1.0 MV Deceleration Time 228.5 ms MV E' Velocity 8.3 cm/s Mitral E to MV E' Ratio 12.6 FINDINGS Left Ventricle Left ventricular ejection fraction is estimated at 55-60 %. Small left ventricular cavity. Left ventricular wall thickness normal. Normal left ventricular wall motion. Right Ventricle Normal right ventricular size and function. Unable to estimate the right ventricular systolic pressure. Right Atrium Normal right atrial size. Left Atrium Normal left atrial size. Mitral Valve Structurally normal mitral valve. Mitral annular calcification. Mild mitral regurgitation. Aortic Valve Trileaflet aortic valve. No aortic valve stenosis or regurgitation. Tricuspid Valve Structurally normal tricuspid valve. No tricuspid stenosis, regurgitation or prolapse. Pulmonic Valve Pulmonic valve not well visualized. No pulmonic regurgitation. Pericardium Normal pericardium. No pericardial effusion. Aorta Normal size aortic root and proximal ascending aorta. CONCLUSIONS Normal left frontal size and systolic function. Mild mitral and tricuspid regurgitation. No pulmonary hypertension. No pericardial effusion Previewed by: Dr. Kirby Vega MD (Electronically Signed) Final Date: 08 Apr 2023 12:28
[2023-04-08] MEDS: HYDROcodone/APAP 5-325MG 1 EACH TAB PO PRN (21:05)
[2023-04-09] MEDS: SODIUM CHLORIDE 0.9% 1,000 ML IV SCH ×2 (05:37→20:09)
[2023-04-09] MEDS: LEVOTHYROXINE 50 MCG TAB PO SCH (05:39)
[2023-04-09] MEDS: HEPARIN SODIUM,PORCINE/PF 5,000 UNIT/0.5 ML SYRINGE SQ SCH ×2 (08:33→15:41)
[2023-04-09] MEDS: methylPREDNISolone SOD SUCCI 40 MG/ML 1 ML VIAL IV SCH ×2 (08:34→15:42)
[2023-04-09] MEDS: BENZONATATE 100 MG CAP PO SCH ×3 (08:34→21:49)
[2023-04-09] MEDS: IPRATROPIUM-ALBUTEROL 3 ML NEB INHALATION SCH ×4 (08:45→20:56)
--- NOTE | 2023-04-09 09:22 | XR ---
EXAMINATION TYPE: XR chest 1V portable DATE OF EXAM: 04/09/2023 COMPARISON: 04/08/2023 HISTORY: Cough TECHNIQUE: Single frontal view of the chest is obtained. FINDINGS: There is no focal air space opacity, pleural effusion, or pneumothorax seen. The cardiac silhouette size is within normal limits. The osseous structures are intact. Coarsened interstitium. Inflation suggests COPD. IMPRESSION: COPD with persistent interstitial infiltrates correlate for interstitial pneumonitis fav ored over venous congestion.
[2023-04-09] MEDS: AZITHROMYCIN 500 MG in SODIUM CHLORIDE 0.9% 250 ML IVPB SCH (09:46)
--- NOTE | 2023-04-09 12:38 | P.PN ---
Subjective Progress Note Date: 04/09/23 I'm seeing this patient in new consultation today 04/08/2023 for suspected bilateral community-acquired pneumonia. Patient is a 67-year-old white female with past medical history significant for hypothyroidism, mild obstructive sleep apnea, osteoarthritis, and an ex-smoker of over 30 pack years. Her primary care provider is Dr. Gomez. Patient presented to the emergency room earlier this morning with chief complaint of progressive worsening shortness of breath, persistent nonproductive cough, night sweats, and generalized fatigue for approximately one week. Denies any hemoptysis. She does report that family members within her house also had similar symptoms within the last couple weeks including her , daughter, and grandchildren. She was treated outpatient basis with a course of antibiotics and steroids. She denies any chest pain, lower extremity swelling, orthopnea, heart palpitations, syncope. Chest CTA on arrival was negative for any pulmonary embolism. It did show multifocal patchy confluent groundglass opacities within bilateral lung tamayo. This is thought to demonstrate volume overload versus atypical pneumonia. She was negative for COVID-19, RSV, influenza. CBC shows no leukocytosis. NT proBNP was low at 209. Troponin negative 1. BMP was essentially unremarkable. Patient is currently lying in bed, on 3 L nasal cannula, in no acute distress. She does have a significant nonproductive persistent cough. Vital signs are stable. The patient is seen today 04/09/2023 in follow-up on the regular medical floor. She is currently sitting up in bed. Awake and alert in no acute distress. Breathing better today compared to yesterday. She started 2 L nasal cannula. With cough and congestion. Continues with crackles in the bases. Legionella screen was negative. Echocardiogram revealed normal left ventricular size and systolic function. No significant valvular abnormalities. His chest x-ray shows significant improvement. There is evidence of COPD with persistent interstitial infiltrates favoring interstitial pneumonitis. She remains on azithromycin and ceftriaxone. She is continued on DuoNeb inhalations, Tessalon Perles IV Solu-Medrol. Heparin for DVT prophylaxis. Objective - Vital Signs Vital signs: Vital Signs Temp 97.3 F L 04/09/23 07:14 Pulse 82 04/09/23 08:58 Resp 16 04/09/23 09:00 BP 109/62 04/09/23 07:14 Pulse Ox 92 L 04/09/23 08:46 FiO2 Intake & Output 05/17/23 05/18/23 05/18/23 18:59 06:59 18:59 Weight 70.76 kg Other: Voiding Method Toilet Toilet # Voids 2 3 - Exam GENERAL EXAM: Alert, 67-year-old female, on 2 L nasal cannula, in no acute distress. HEAD: Normocephalic and atraumatic EYES: Normal reaction of pupils, equal size. NOSE: Clear with pink turbinates. THROAT: No erythema or exudates. NECK: No masses, no JVD. CHEST: No chest wall deformity. LUNGS: Equal air entry with scattered crackles. No wheeze, rhonchi or dullness. No conversational dyspnea or accessory muscle use. CVS: S1 and S2 normal with no audible murmur, regular rhythm. No extra heart sounds ABDOMEN: No hepatosplenomegaly, active bowel sounds, no guarding or rigidity. SPINE: No scoliosis or deformity SKIN: No rashes CENTRAL NERVOUS SYSTEM: No focal deficits, tone is normal in all 4 extremities. EXTREMITIES: There is no peripheral edema, clubbing, or cyanosis. Peripheral pulses are intact. - Labs CBC & Chem 7: 04/08/23 02:01 04/08/23 02:01 Assessment and Plan Assessment: Suspected bilateral community-acquired pneumonia, chest CTA showed multifocal patchy confluent groundglass opacities within bilateral lung tamayo. Pro- calcitonin 0.70. Negative for COVID-19, influenza, RSV. Legionella screen negative. Echocardiogram revealed normal left ventricular size and systolic function. No valvular heart disease. Continued on ceftriaxone and Zosyn. Acute hypoxemic respiratory failure secondary to above, currently on 2 L nasal cannula Elevated d-dimer, chest CTA ruled out pulmonary embolism Hypothyroidism Mild obstructive sleep apnea without CPAP use Osteoarthritis Ex-smoker, with a [id number] history Plan: The patient was seen and evaluated Medications, chest x-ray, echocardiogram and labs reviewed Improved but not quite back to her baseline Continue ceftriaxone and azithromycin Continue bronchodilators, Tessalon Perles Titrate the FiO2 as tolerated Increase her activity as tolerated We will continue to follow I have personally seen and examined the patient, performed the documentation and the assessment and plan as written. Number of minutes spent on the visit: 10.
--- NOTE | 2023-04-09 13:51 | P.PN ---
Subjective Progress Note Date: 04/09/23 Hospital Course: 67-year-old female with a PMH of hypothyroidism who presents to the emergency room with complaints of shortness of breath, fatigue, and fevers. EKG revealed sinus rhythm at 182 beats per minute with incomplete right bundle-branch block. Chest x-ray revealed cardiomegaly with moderate edema. Laboratory evaluation was reviewed with WBC count 13.8, d-dimer 3.45, sodium 134, potassium 4.2, glucose 112, total bilirubin 8.1, troponin less than 0.012. Patient admitted f or acute hypoxic respiratory failure community-acquired pneumonia. CT chest report reviewed, no PE, mild intralobular septal thickening, possible interstitial pulmonary edema, multifocal patchy and confluent groundglass opacities.Echocardiogram report reviewed, normal LV size and systolic function, mild mitral and tricuspid regurgitation. Subjective: Patient seen and examined at bedside. No acute events overnight. She has mild chest pain with cough, but denies any palpitations, orthopnea, PND, abdominal pain, nausea, vomiting, diarrhea, constipation, or urinary complaints. She still has some shortness of breath, but improved. Pertinent positives and negatives as discussed above, a complete review of systems was performed and all other systems are negative. Vitals Signs Reviewed. General: nontoxic, no distress, appears at stated age Derm: warm, dry Head: atraumatic, normocephalic, symmetric Eyes: EOMI, no lid lag, anicteric sclera Mouth: no lip lesion, mucus membranes moist Cardiovascular: S1S2 reg, no murmur Lungs: Bilateral crackles at the bases , no accessory muscle use, supplemental oxygen Abdominal: soft, nontender to palpation, no guarding, no appreciable organomeg josr Ext: no gross muscle atrophy, no edema, no contractures Neuro: CN II-XI grossly intact, no focal neuro deficits Psych: Alert, oriented, appropriate affect Data Reviewed Today: Pertinent Labs: Urine Legionella negative, pro-calcitonin 0.7 Imaging: Chest x-ray independently interpreted, interstitial opacities CT chest report reviewed, no PE, mild intralobular septal thickening, possible interstitial pulmonary edema, multifocal patchy and confluent groundglass opacities Echocardiogram report reviewed, normal LV size and systolic function, mild mitral and tricuspid regurgitation. Assessment and Plan: Active: Acute hypoxic respiratory failure Community-acquired pneumonia, multifocal -Elevated pro-calcitonin -Echocardiogram shows normal LV systolic function -CTA did not show any PE -Pulmonology note reviewed continue ceftriaxone and azithromycin, and bronchodilators, and on steroids Solu-Medrol 40 mg IV every 8 hours -Continue to wean oxygen Resolved: Chronic: Hypothyroidism DVT ppx: Subcu heparin Code status: Full code Anticipated discharge place: Home Anticipated discharge time: 1-2 days Objective - Vital Signs Vital signs: Vital Signs Temp 97.3 F L 04/09/23 07:14 Pulse 82 04/09/23 12:49 Resp 16 04/09/23 09:00 BP 109/62 04/09/23 07:14 Pulse Ox 92 L 04/09/23 08:46 FiO2 Intake & Output 04/08/23 04/09/23 04/09/23 18:59 06:59 18:59 Weight 70.76 kg Other: Voiding Method Toilet Toilet # Voids 2 3 - Labs CBC & Chem 7: 04/08/23 02:01 04/08/23 02:01
[2023-04-10] MEDS: methylPREDNISolone SOD SUCCI 40 MG/ML 1 ML VIAL IV SCH ×2 (00:12→08:37)
[2023-04-10] MEDS: HYDROcodone/APAP 5-325MG 1 EACH TAB PO PRN (00:12)
[2023-04-10] MEDS: HEPARIN SODIUM,PORCINE/PF 5,000 UNIT/0.5 ML SYRINGE SQ SCH ×2 (00:13→08:37)
[2023-04-10 02:59] VITALS: TEMP 98
[2023-04-10] MEDS: SODIUM CHLORIDE 0.9% 1,000 ML IV SCH ×2 (03:35→09:14)
[2023-04-10] MEDS: LEVOTHYROXINE 50 MCG TAB PO SCH (06:40)
[2023-04-10 08:34] VITALS: BP 144/76; RESP 18
[2023-04-10] MEDS: BENZONATATE 100 MG CAP PO SCH (08:37)
--- NOTE | 2023-04-10 08:55 | XR ---
EXAMINATION TYPE: XR chest 1V portable DATE OF EXAM: 04/10/2023 COMPARISON: 04/09/2023 HISTORY: Hypoxia. TECHNIQUE: Single frontal view of the chest is obtained. FINDINGS: There is no focal air space opacity, pleural effusion, or pneumothorax seen. The cardiac s ilhouette size is within normal limits. The osseous structures are intact. Coarsened interstitium. In flation suggests COPD. IMPRESSION: COPD with persistent interstitial infiltrates correlate for known interstitial pneumonit is or atypical pneumonia favored over CHF.
[2023-04-10] MEDS: IPRATROPIUM-ALBUTEROL 3 ML NEB INHALATION SCH ×2 (09:06→12:00)
[2023-04-10] MEDS: AZITHROMYCIN 500 MG in SODIUM CHLORIDE 0.9% 250 ML IVPB SCH (09:13)
[2023-04-10 11:38] VITALS: PULSE 86
[2023-04-10 12:12] LABS: Basophils % (A) 0 %; Eosinophils % (A) 0 %; HCT 39.5 % (34.0-46.0); HGB 12.8 gm/dL (11.4-16.0); Lymphocytes % (A) 14 %; MCH 28.7 pg (25.0-35.0); MCHC 32.5 g/dL (31.0-37.0); MCV 88.3 fL (80.0-100.0); Mean Platelet Volume 7.9; Monocytes # (A) 0.2 k/uL (0-1.0); Monocytes % (A) 3 %; Neutrophils # (A) 5.9 k/uL (1.3-7.7); Neutrophils % (A) 82 %; Platelet Count 393 k/uL (150-450); RBC 4.47 m/uL (3.80-5.40); RDW 14.4 % (11.5-15.5); WBC 7.2 k/uL (3.8-10.6)
[2023-04-10 12:14] LABS: African American GFR (CKD) >90 (>60 ml/min/1.73 sqM); Anion Gap 11 mmol/L; Blood Urea Nitrogen 16 mg/dL (7-17); Calcium 8.2 mg/dL (8.4-10.2); Carbon Dioxide 24 mmol/L (22-30); Chloride 102 mmol/L (98-107); Glucose 151 mg/dL (74-99); Non-African American GFR(CKD) 80 (>60 ml/min/1.73 sqM); Potassium 4.1 mmol/L (3.5-5.1); Sodium 137 mmol/L (137-145)
--- NOTE | 2023-04-10 13:04 | P.PN ---
Subjective Progress Note Date: 04/10/23 I'm seeing this patient in new consultation today 04/08/2023 for suspected bilateral community-acquired pneumonia. Patient is a 67-year-old white female with past medical history significant for hypothyroidism, mild obstructive sleep apnea, osteoarthritis, and an ex-smoker of over 30 pack years. Her primary care provider is Dr. Gomez. Patient presented to the emergency room earlier this morning with chief complaint of progressive worsening shortness of breath, persistent nonproductive cough, night sweats, and generalized fatigue for approximately one week. Denies any hemoptysis. She does report that family members within her house also had similar symptoms within the last couple weeks including her , daughter, and grandchildren. She was treated outpatient basis with a course of antibiotics and steroids. She denies any chest pain, lower extremity swelling, orthopnea, heart palpitations, syncope. Chest CTA on arrival was negative for any pulmonary embolism. It did show multifocal patchy confluent groundglass opacities within bilateral lung tamayo. This is thought to demonstrate volume overload versus atypical pneumonia. She was negative for COVID-19, RSV, influenza. CBC shows no leukocytosis. NT proBNP was low at 209. Troponin negative 1. BMP was essentially unremarkable. Patient is currently lying in bed, on 3 L nasal cannula, in no acute distress. She does have a significant nonproductive persistent cough. Vital signs are stable. The patient is seen today 04/09/2023 in follow-up on the regular medical floor. She is currently sitting up in bed. Awake and alert in no acute distress. Breathing better today compared to yesterday. She started 2 L nasal cannula. With cough and congestion. Continues with crackles in the bases. Legionella screen was negative. Echocardiogram revealed normal left ventricular size and systolic function. No significant valvular abnormalities. His chest x-ray shows significant improvement. There is evidence of COPD with persistent interstitial infiltrates favoring interstitial pneumonitis. She remains on azithromycin and ceftriaxone. She is continued on DuoNeb inhalations, Tessalon Perles IV Solu-Medrol. Heparin for DVT prophylaxis. The patient is seen today 04/10/2023 in follow-up on the regular medical floor. She is currently awake and alert in no acute distress. Feeling nearly back to her baseline. No worsening shortness of breath, cough or congestion. Continue good O2 saturations in the 90s on room air. Does not qualify for home oxygen. Chest x-ray shows evidence of COPD with interstitial pneumonitis versus atypical pneumonia. Improved. White count 7.2. Hemoglobin 12.8. Platelets 393. Sodium 137. Potassium 4.1. Bicarb 24. BUN 16. Creatinine 0.78. She remains on ceftriaxone and azithromycin. Normal saline at 100 ML's per hour. Heparin for DVT prophylaxis. Continued on bronchodilators, Tessalon Perles, IV Solu- Medrol. Objective - Vital Signs Vital signs: Vital Signs Temp 98.0 F 04/10/23 07:27 Pulse 86 04/10/23 11:36 Resp 18 04/10/23 07:27 BP 144/76 04/10/23 07:27 Pulse Ox 93 L 04/10/23 11:36 FiO2 Intake & Output 04/09/23 04/10/23 04/10/23 18:59 06:59 18:59 Intake Total 300 Balance 300 Intake: Intake, IV Titration 300 Amount Azithromycin 500 mg In 250 Sodium Chloride 0.9% 250 ml @ 250 mls/hr IVPB DAILY [facility] Rx#:[id number] cefTRIAXone 2 gm In 50 Sodium Chloride 0.9% 50 ml @ 100 mls/hr IVPB Q24HR [facility] Rx#:[id number] Other: Voiding Method Toilet Toilet # Voids 4 2 - Exam GENERAL EXAM: Alert, 67-year-old female, on 2 L nasal cannula, 6 minute walk did not reveal significant desaturation, in no acute distress. HEAD: Normocephalic and atraumatic EYES: Normal reaction of pupils, equal size. NOSE: Clear with pink turbinates. THROAT: No erythema or exudates. NECK: No masses, no JVD. CHEST: No chest wall deformity. LUNGS: Equal air entry with scattered crackles. No wheeze, rhonchi or dullness. No conversational dyspnea or accessory muscle use. CVS: S1 and S2 normal with no audible murmur, regular rhythm. No extra heart sounds ABDOMEN: No hepatosplenomegaly, active bowel sounds, no guarding or rigidity. SPINE: No scoliosis or deformity SKIN: No rashes CENTRAL NERVOUS SYSTEM: No focal deficits, tone is normal in all 4 extremities. EXTREMITIES: There is no peripheral edema, clubbing, or cyanosis. Peripheral pulses are intact. - Labs CBC & Chem 7: 04/10/23 10:12 04/10/23 10:12 Labs: Abnormal Lab Results - Last 24 Hours (Table) 04/10/23 Range/Units 10:12 Glucose 151 H (74-99) mg/dL Calcium 8.2 L (8.4-10.2) mg/dL Microbiology - Last 24 Hours (Table) 04/08/23 07:17 Blood Culture - Preliminary Blood Assessment and Plan Assessment: Suspected bilateral community-acquired pneumonia, chest CTA showed multifocal patchy confluent groundglass opacities within bilateral lung tamayo. Pro- calcitonin 0.70. Negative for COVID-19, influenza, RSV. Legionella screen negative. Echocardiogram revealed normal left ventricular size and systolic function. No valvular heart disease. Continued on ceftriaxone and Zosyn. Follow-up chest x-ray shows improvement. Stable and on room air. Acute hypoxemic respiratory failure secondary to above, recovered and currently on room air Elevated d-dimer, chest CTA ruled out pulmonary embolism Hypothyroidism Mild obstructive sleep apnea without CPAP use Osteoarthritis Ex-smoker, with a [id number] history Plan: The patient was seen and evaluated Medications, chest x-ray, and labs reviewed Improved and back to her baseline Cleared for discharge from pulmonary standpoint Does not require home oxygen Complete a prednisone taper starting at 30 mg daily Complete course of antibiotics in the form of Levaquin 5 more days Follow up with Dr. Campos in our office in 1 week I have personally seen and examined the patient, performed the documentation and the assessment and plan as written. Number of minutes spent on the visit: 10.
--- NOTE | 2023-04-10 13:14 | P.DS ---
Providers Date of admission: 04/08/23 04:46 Expected date of discharge: 04/10/23 Attending physician: Duglas Hernandez MD Consults: 04/08/23 04:42 Consult Physician Urgent Consulting Provider: Marcel Rivera Consult Reason/Comments: Hypoxia, acute respiratory failure Do you want consulting provider notified?: Yes, Notify in am Primary care physician: Luis Alberto Cerda [facility] Hospital Course: Discharge Diagnosis: Acute hypoxic respiratory failure Community-acquired pneumonia, multifocal Hospital Course: 67-year-old female with a PMH of hypothyroidism who presents to the emergency room with complaints of shortness of breath, fatigue, and fevers. EKG revealed sinus rhythm at 182 beats per minute with incomplete right bundle-branch block. Chest x-ray revealed cardiomegaly with moderate edema. Laboratory evaluation was reviewed with WBC count 13.8, d-dimer 3.45, sodium 134, potassium 4.2, glucose 112, total bilirubin 8.1, troponin less than 0.012. Patient admitted fo r acute hypoxic respiratory failure community-acquired pneumonia. CT chest report reviewed, no PE, mild intralobular septal thickening, possible interstitial pulmonary edema, multifocal patchy and confluent groundglass opacities.Echocardiogram report reviewed, normal LV size and systolic function, mild mitral and tricuspid regurgitation. Pulmonology wants another 5 days of antibiotics and prednisone taper. Note was reviewed after patient was already discharge. She was discharged on a total of 5 days of antibiotic including inpatient antibiotic administration. And also a Medrol Dosepak. She will follow-up with pulmonology. Patient seen and examined at bedside. Vital signs reviewed and stable. General: nontoxic, no distress, appears at stated age Derm: warm, dry Head: atraumatic, normocephalic, symmetric Eyes: EOMI, no lid lag, anicteric sclera Mouth: no lip lesion, mucus membranes moist Cardiovascular: S1S2 reg, no murmur Lungs: CTA bilateral, no rhonchi, no rales , no accessory muscle use Abdominal: soft, nontender to palpation, no guarding, no appreciable organomegaly Ext: no gross muscle atrophy, no edema, no contractures Neuro: CN II-XI grossly intact, no focal neuro deficits Psych: Alert, oriented, appropriate affect A total of 36 minutes of time were spent preparing this complex discharge summary. Patient was discharged on 04/10/23 at 1:11. Patient Condition at Discharge: Stable Plan - Discharge Summary Discharge Rx Participant: Yes New Discharge Prescriptions: New Levofloxacin [Levaquin] 500 mg PO Q24H #2 tab methylPREDNISolone Dose Pack [Medrol Dose Pack] 4 mg PO DIRECTED #1 packet Continue Levothyroxine Sodium [Synthroid] 50 mcg PO DAILY Discharge Medication List Levothyroxine Sodium [Synthroid] 50 mcg PO DAILY 07/31/16 [History] Levofloxacin [Levaquin] 500 mg PO Q24H #2 tab 04/10/23 [Rx] methylPREDNISolone Dose Pack [Medrol Dose Pack] 4 mg PO DIRECTED #1 packet 04/10/23 [Rx] Follow up Appointment(s)/Referral(s): Nelly Campos MD [STAFF PHYSICIAN] - 04/23/23 2:15 pm Luis Alberto Holly MD [Primary Care Provider] - 1-2 days (office having problem with phone system please call to schedule appointment) Patient Instructions/Handouts: Pneumonitis (DC) Activity/Diet/Wound Care/Special Instructions: Please see PCP and pulmonology. Discharge Disposition: HOME SELF-CARE
[2023-04-11] MEDS ORDERED: predniSONE 10 MG TAB PO SCH (09:00)
[2023-04-11] MEDS ORDERED: LEVOFLOXACIN 500 MG TAB PO SCH (11:00)
== END 2023-04-10 14:22 | disposition home or self-care (01) | DRG 193 ==
LOC: EC 01:25 → 4SSUR 04:46
PROVIDERS: ADMIT Internal Medicine; ATTEND Internal Medicine
DX: J18.9 Pneumonia, unspecified organism (principal); J96.01 Acute respiratory failure with hypoxia; J44.0 Chronic obstructive pulmonary disease with (acute) lower respiratory infection; E03.9 Hypothyroidism, unspecified; G47.33 Obstructive sleep apnea (adult) (pediatric); Z20.822 Contact with and (suspected) exposure to COVID-19; Z79.890 Hormone replacement therapy; I45.10 Unspecified right bundle-branch block; I08.1 Rheumatic disorders of both mitral and tricuspid valves; J84.89 Other specified interstitial pulmonary diseases; M19.90 Unspecified osteoarthritis, unspecified site; Z79.82 Long term (current) use of aspirin; Z87.891 Personal history of nicotine dependence
CPT/HCPCS: 36415; 71045; 71046; 71275; 80048; 80053; 81001; 83605; 83880; 84145; 84484; 85025; 85379; 85610; 85730; 86308; 87040; 87449; 87636; 93005; 93306; 94640; 94760; 96361; 96365; 96367; 96372; 96375; 99285